=== PATIENT | male | born 1990 | race Hispanic/Latino ===

== ENCOUNTER 2020-08-15 05:21 | Inpatient (IN) | payer MEDICAID, OTHER ==
[2020-08-15] VITALS (23 sets, daily range): BP systolic 105–152; BP diastolic 57–81
[~2020-08-15] VITALS: Ht 180.3 cm; Wt 87.5 kg
[2020-08-15 05:52] LABS: BASOPHILS % (AUTO) 0.2 % (0.0-5.0); EOSINOPHILS % (AUTO) 0.2 % (0.0-8.0); HEMATOCRIT 41.6 % (42-54); LYMPHOCYTES % (AUTO) 12.5 % (21.0-51.0); MEAN CORPUSCULAR HEMOGLOBIN 31.2 pg (27.0-33.0); MEAN CORPUSCULAR HGB CONC 34.4 g/dL (32.0-36.0); MEAN CORPUSCULAR VOLUME 90.8 fL (79-99); MONOCYTES % (AUTO) 8.4 % (3.0-13.0); NEUTROPHILS % (AUTO) 78.4 % (40.0-77.0); PLATELET COUNT (AUTO) 223 K/uL (130-400); RED BLOOD CELL COUNT(AUTO) 4.58 MIL/uL (4.50-6.20); RED CELL DISTRIBUTION WIDTH 11.9 % (11.0-15.5); WHITE BLOOD COUNT (AUTO) 17.7 K/uL (4.8-10.8)
[2020-08-15 06:12] LABS: ALBUMIN 4.1 g/dL (3.5-5.0); CREATININE 1.1 mg/dL (0.5-1.5); POTASSIUM 4.1 mmol/L (3.5-5.1)
[2020-08-15] MEDS ORDERED: MORPHINE 4 MG SYG ONE ×3 (06:40→12:38)
[2020-08-15] MEDS ORDERED: IOHEXOL-350 75 ML VIAL IV ONE (06:54)
[2020-08-15] MEDS ORDERED: ZOSYN 3.375GM+NS 50ML 50 ML IV ONE (07:57)
[2020-08-15] MEDS ORDERED: 0.9%NACL 1000ML 1,000 ML IV ONE (08:09)
[2020-08-15] MEDS ORDERED: KETOROLAC 30MG VIAL (30MG/ML) ONE (08:45)
[2020-08-15] MEDS ORDERED: LIDOCAINE PF 100MG/5ML (2%) SYRINGE 5ML ONE (09:12)
[2020-08-15] MEDS ORDERED: MIDAZOLAM HCL 1 MG/ML 2ML VIAL ONE (09:12)
[2020-08-15] MEDS ORDERED: SUCCINYLCHOLINE 200MG/10ML SYR ONE (09:12)
[2020-08-15] MEDS ORDERED: GLYCOPYRROLATE 1 MG/5 ML SYRINGE ONE (09:13)
[2020-08-15] MEDS ORDERED: ONDANSETRON 4MG INJ ONE (09:13)
[2020-08-15] MEDS ORDERED: ROCURONIUM 10MG/1ML SYR 10 MG/ML ML ONE (09:13)
[2020-08-15] MEDS ORDERED: FENTANYL CITRATE PF 50 MCG/1 ML 2ML VIAL ONE (09:13)
[2020-08-15] MEDS ORDERED: PROPOFOL 10 MG/ML 20ML VIAL IV ONE (09:13)
[2020-08-15] MEDS ORDERED: NEOSTIGMINE 5MG/5ML SYR IV ONE (09:13)
[2020-08-15] MEDS ORDERED: METOCLOPRAMIDE 10 MG/2 ML VIAL ONE (09:16)
[2020-08-15] MEDS ORDERED: BUPIVACAINE/PF 0.5% 30ML VIAL ONE (09:56)
[2020-08-15] MEDS ORDERED: MEPERIDINE-PF 25 MG/ML SYG ONE ×2 (10:20→10:31)
[2020-08-15] MEDS ORDERED: MORPHINE 4 MG SYG IM PRN (12:30)
[2020-08-15] MEDS: KETOROLAC 30MG VIAL (30MG/ML) IV PRN (14:35)
[2020-08-15] MEDS: ZOSYN 3.375GM+NS 50ML 50 ML IV SCH ×2 (14:37→21:55)
[2020-08-15] MEDS: ACETAMINOPHEN WITH CODEINE 1 TAB TAB PO PRN ×2 (14:37→21:49)
[2020-08-15] MEDS ORDERED: LACTATED RINGERS 1000ML 1,000 ML IV ONE (16:38)
[2020-08-15] MEDS: MORPHINE 4 MG SYG IV PRN (16:40)
[2020-08-16] MEDS: MORPHINE 4 MG SYG IV PRN ×3 (02:38→15:13)
[2020-08-16 04:03] VITALS: BP 110/49
[2020-08-16] MEDS: ZOSYN 3.375GM+NS 50ML 50 ML IV SCH ×3 (05:32→21:12)
[2020-08-16 05:35] LABS: BASOPHILS % (AUTO) 0.1 % (0.0-5.0); EOSINOPHILS % (AUTO) 0.1 % (0.0-8.0); HEMATOCRIT 30.3 % (42-54); LYMPHOCYTES % (AUTO) 10.2 % (21.0-51.0); MEAN CORPUSCULAR HEMOGLOBIN 31.1 pg (27.0-33.0); MEAN CORPUSCULAR HGB CONC 33.3 g/dL (32.0-36.0); MEAN CORPUSCULAR VOLUME 93.2 fL (79-99); MONOCYTES % (AUTO) 7.4 % (3.0-13.0); NEUTROPHILS % (AUTO) 81.9 % (40.0-77.0); PLATELET COUNT (AUTO) 185 K/uL (130-400); RED BLOOD CELL COUNT(AUTO) 3.25 MIL/uL (4.50-6.20); RED CELL DISTRIBUTION WIDTH 12.1 % (11.0-15.5); WHITE BLOOD COUNT (AUTO) 15.9 K/uL (4.8-10.8)
[2020-08-16 06:09] LABS: CREATININE 1.3 mg/dL (0.5-1.5); POTASSIUM 3.9 mmol/L (3.5-5.1)
[2020-08-16 08:00] VITALS: BP 121/68
[2020-08-16 12:00] VITALS: BP 115/57
[2020-08-16] MEDS: ACETAMINOPHEN WITH CODEINE 1 TAB TAB PO PRN ×2 (12:15→18:45)
[2020-08-16] MEDS ORDERED: LACTATED RINGERS 1000ML 1,000 ML IV ONE (14:50)
[2020-08-16 16:00] VITALS: BP 113/47
[2020-08-16 19:00] VITALS: BP 121/37
[2020-08-16] MEDS: KETOROLAC 30MG VIAL (30MG/ML) IV PRN (22:27)
[2020-08-17 00:03] VITALS: BP 106/46
[2020-08-17 04:00] VITALS: BP 104/50
[2020-08-17] MEDS: ZOSYN 3.375GM+NS 50ML 50 ML IV SCH ×3 (05:15→22:41)
[2020-08-17] MEDS: ACETAMINOPHEN WITH CODEINE 1 TAB TAB PO PRN ×2 (07:49→16:05)
[2020-08-17 08:00] VITALS: BP 136/71
[2020-08-17 11:52] VITALS: BP 125/69
[2020-08-17 12:26] LABS: HEMATOCRIT 26.3 % (42-54); MEAN CORPUSCULAR HEMOGLOBIN 31.3 pg (27.0-33.0); MEAN CORPUSCULAR HGB CONC 33.5 g/dL (32.0-36.0); MEAN CORPUSCULAR VOLUME 93.6 fL (79-99); PLATELET COUNT (AUTO) 155 K/uL (130-400); RED BLOOD CELL COUNT(AUTO) 2.81 MIL/uL (4.50-6.20); WHITE BLOOD COUNT (AUTO) 13.2 K/uL (4.8-10.8)
[2020-08-17 12:49] LABS: POTASSIUM 3.9 mmol/L (3.5-5.1)
[2020-08-17 12:54] LABS: ALBUMIN 2.5 g/dL (3.5-5.0); BILIRUBIN,TOTAL 0.8 mg/dL (0.2-1.0); TOTAL PROTEIN, SERUM 6.8 g/dL (6.0-8.3)
[2020-08-17 13:14] LABS: EOSINOPHILS % (MANUAL) 1 % (1-6); LYMPHOCYTES % (MANUAL) 14 % (22-44); MONOCYTES % (MANUAL) 4 % (2-9); PLATELET MORPHOLOGY COMMENT ADEQUATE; SEGMENTED NEUTROPHILS % 81 % (40-70)
[2020-08-17 16:00] VITALS: BP 125/69
[2020-08-17 19:00] VITALS: BP 134/75
[2020-08-17] MEDS: MORPHINE 4 MG SYG IV PRN (19:00)
[2020-08-18] VITALS (7 sets, daily range): BP systolic 126–145; BP diastolic 62–84
[2020-08-18] MEDS ORDERED: 0.9%NACL 1000ML 1,000 ML IV ONE (00:32)
[2020-08-18] MEDS: 0.9%NACL 1000ML 1,000 ML IV SCH ×4 (00:38→20:13)
[2020-08-18] MEDS: ACETAMINOPHEN 325 MG TAB PO PRN ×3 (00:38→17:57)
[2020-08-18] MEDS: ONDANSETRON 4MG INJ IVP PRN ×4 (02:36→20:40)
[2020-08-18] MEDS: KETOROLAC 30MG VIAL (30MG/ML) IV PRN ×4 (02:36→22:01)
[2020-08-18 05:18] LABS: BASOPHILS % (AUTO) 0.3 % (0.0-5.0); EOSINOPHILS % (AUTO) 0.4 % (0.0-8.0); LYMPHOCYTES % (AUTO) 5.8 % (21.0-51.0); MEAN CORPUSCULAR HEMOGLOBIN 30.9 pg (27.0-33.0); MEAN CORPUSCULAR HGB CONC 33.1 g/dL (32.0-36.0); MEAN CORPUSCULAR VOLUME 93.3 fL (79-99); MONOCYTES % (AUTO) 6.7 % (3.0-13.0); NEUTROPHILS % (AUTO) 86.3 % (40.0-77.0); PLATELET COUNT (AUTO) 244 K/uL (130-400); RED BLOOD CELL COUNT(AUTO) 3.43 MIL/uL (4.50-6.20); WHITE BLOOD COUNT (AUTO) 16.8 K/uL (4.8-10.8)
[2020-08-18 05:39] LABS: ALBUMIN 2.9 g/dL (3.5-5.0); BILIRUBIN,TOTAL 1.7 mg/dL (0.2-1.0); CREATININE 1.5 mg/dL (0.5-1.5); POTASSIUM 3.9 mmol/L (3.5-5.1)
[2020-08-18] MEDS: ZOSYN 3.375GM+NS 50ML 50 ML IV SCH ×3 (06:07→20:13)
[2020-08-18] MEDS ORDERED: IOHEXOL-350 75 ML VIAL IV ONE (11:06)
[2020-08-18] MEDS: MORPHINE 4 MG SYG IV PRN (20:40)
[2020-08-19] MEDS: ONDANSETRON 4MG INJ IVP PRN ×3 (01:44→16:09)
[2020-08-19 03:50] VITALS: BP 119/60
[2020-08-19] MEDS: 0.9%NACL 1000ML 1,000 ML IV SCH ×3 (04:23→21:22)
[2020-08-19] MEDS: MORPHINE 4 MG SYG IV PRN ×2 (04:23→16:19)
[2020-08-19] MEDS: ZOSYN 3.375GM+NS 50ML 50 ML IV SCH ×3 (04:26→19:49)
[2020-08-19 05:45] LABS: HEMATOCRIT 27.6 % (42-54); MEAN CORPUSCULAR HEMOGLOBIN 30.3 pg (27.0-33.0); MEAN CORPUSCULAR HGB CONC 32.6 g/dL (32.0-36.0); MEAN CORPUSCULAR VOLUME 92.9 fL (79-99); NUCLEATED RED BLOOD CELLS 0.1 % (0.0-0.19); PLATELET COUNT (AUTO) 272 K/uL (130-400); RED BLOOD CELL COUNT(AUTO) 2.97 MIL/uL (4.50-6.20); RED CELL DISTRIBUTION WIDTH 12.5 % (11.0-15.5); WHITE BLOOD COUNT (AUTO) 15.9 K/uL (4.8-10.8)
[2020-08-19 06:02] LABS: ALBUMIN 2.2 g/dL (3.5-5.0); BILIRUBIN,TOTAL 1.7 mg/dL (0.2-1.0); CREATININE 1.3 mg/dL (0.5-1.5); POTASSIUM 4.2 mmol/L (3.5-5.1); TOTAL PROTEIN, SERUM 6.4 g/dL (6.0-8.3)
[2020-08-19 06:12] LABS: BAND NEUTROPHILS % (MANUAL) 47 % (0-2); LYMPHOCYTES % (MANUAL) 2 % (22-44); MAN.DIFF COMMENT-IMPRESSION MANUAL DIFFERENTIAL; METAMYELOCYTES % 4 % (0-0); MONOCYTES % (MANUAL) 8 % (2-9); SEGMENTED NEUTROPHILS % 39 % (40-70)
[2020-08-19 08:00] VITALS: BP 150/71
[2020-08-19] MEDS: KETOROLAC 30MG VIAL (30MG/ML) IV PRN ×2 (10:00→19:52)
[2020-08-19] MEDS: ACETAMINOPHEN 325 MG TAB PO PRN (10:03)
[2020-08-19 12:00] VITALS: BP 138/66
[2020-08-19 16:00] VITALS: BP 140/68
[2020-08-19 19:50] VITALS: BP 136/68
[2020-08-19 21:55] LABS: APPEARANCE,URINE Clear (CLEAR); BILIRUBIN,URINE Small (NEGATIVE); COLOR,URINE Dark Yellow (YELLOW); GLUCOSE, URINE (UA) Negative (NEGATIVE); KETONES,URINE Trace mg/dL (NEGATIVE); LEUKOCYTE ESTERASE ,URINE Trace (NEGATIVE); NITRATE,URINE Negative (NEGATIVE); OCCULT BLOOD,URINE Negative (NEGATIVE); PROTEIN,URINE POS 2+ mg/dL (NEGATIVE)
[2020-08-19 22:02] LABS: BACTERIA,URINE Few /HPF (None Seen); RBC,URINE 0-1 /HPF (0-1)
[2020-08-19 22:03] LABS: SQUAMOUS EPITHELIAL CELL,UR Rare /HPF (0-2)
[2020-08-19 23:54] VITALS: BP 127/73
[2020-08-20] MEDS: MORPHINE 4 MG SYG IV PRN (00:29)
[2020-08-20] MEDS: ONDANSETRON 4MG INJ IVP PRN ×3 (00:29→20:04)
[2020-08-20] MEDS: 0.9%NACL 1000ML 1,000 ML IV SCH ×3 (03:39→23:38)
[2020-08-20 03:48] VITALS: BP 138/62
[2020-08-20] MEDS: ZOSYN 3.375GM+NS 50ML 50 ML IV SCH ×3 (04:06→20:53)
[2020-08-20] MEDS: KETOROLAC 30MG VIAL (30MG/ML) IV PRN ×2 (04:10→10:03)
[2020-08-20 09:23] VITALS: BP 146/67
[2020-08-20 11:55] VITALS: BP 143/71
[2020-08-20] MEDS: FLUCONAZOLE 200 MG/NS 100 ML 100 ML IV SCH (13:22)
[2020-08-20] MEDS: ACETAMINOPHEN WITH CODEINE 1 TAB TAB PO PRN ×3 (13:33→22:46)
[2020-08-20 16:38] VITALS: BP 143/66
[2020-08-20 20:08] VITALS: BP 125/60
[2020-08-20 23:44] VITALS: BP 150/78
[2020-08-21] VITALS (26 sets, daily range): BP systolic 68–151; BP diastolic 37–96
[2020-08-21] MEDS: 0.9%NACL 1000ML 1,000 ML IV SCH (01:00)
[2020-08-21] MEDS: ONDANSETRON 4MG INJ IVP PRN (02:06)
[2020-08-21] MEDS: MORPHINE 4 MG SYG IV PRN (02:07)
[2020-08-21 03:51] LABS: MEAN CORPUSCULAR HEMOGLOBIN 30.6 pg (27.0-33.0); MEAN CORPUSCULAR VOLUME 89.8 fL (79-99); NUCLEATED RED BLOOD CELLS 0.8 % (0.0-0.19); PLATELET COUNT (AUTO) 331 K/uL (130-400); RED BLOOD CELL COUNT(AUTO) 2.16 MIL/uL (4.50-6.20); RED CELL DISTRIBUTION WIDTH 13.3 % (11.0-15.5)
[2020-08-21 03:53] LABS: CREATININE 2.3 mg/dL (0.5-1.5); POTASSIUM 3.7 mmol/L (3.5-5.1)
[2020-08-21 03:54] LABS: WHITE BLOOD COUNT (AUTO) 32.7 K/uL (4.8-10.8)
[2020-08-21 03:55] LABS: HEMATOCRIT 19.4 % (42-54)
[2020-08-21 04:24] LABS: BAND NEUTROPHILS % (MANUAL) 46 % (0-2); LYMPHOCYTES % (MANUAL) 11 % (22-44); MAN.DIFF COMMENT-IMPRESSION MANUAL DIFFERENTIAL; METAMYELOCYTES % 6 % (0-0); MONOCYTES % (MANUAL) 3 % (2-9); MYELOCYTES % 1 % (0-0); PLATELET MORPHOLOGY COMMENT ADEQUATE; REACTIVE LYMPHOCYTES 1 % (0-0); SEGMENTED NEUTROPHILS % 32 % (40-70)
[2020-08-21] MEDS: ZOSYN 3.375GM+NS 50ML 50 ML IV SCH (05:02)
[2020-08-21] MEDS ORDERED: DIATR MEGLU/DIATRIZOATE SODIUM 30 ML BOTTLE ONE (06:53)
[2020-08-21] MEDS: FLUCONAZOLE 200 MG/NS 100 ML 100 ML IV SCH (08:35)
[2020-08-21] MEDS ORDERED: FUROSEMIDE 40MG VIAL IV SCH ×2 (09:30→10:18)
[2020-08-21] MEDS ORDERED: LORAZEPAM 2 MG/ML 1 ML VIAL IVP PRN (09:30)
[2020-08-21] MEDS ORDERED: OCTREOTIDE ACETATE 1,250 MCG in 0.9% NACL 250ML 250 ML IV SCH (09:45)
[2020-08-21] MEDS ORDERED: ACETAMINOPHEN 325 MG TAB PO PRN (09:45)
[2020-08-21] MEDS ORDERED: THIAMINE HCL 100 MG/ML 2ML VIAL IVP SCH (09:45)
[2020-08-21] MEDS ORDERED: PANTOPRAZOLE 40 MG/VIAL IVP SCH (09:45)
[2020-08-21] MEDS ORDERED: FUROSEMIDE 40MG VIAL ONE (09:46)
[2020-08-21 09:48] LABS: INR 0.97 (0.85-1.15); PROTHROMBIN TIME 10.5 SEC (9.6-11.6)
[2020-08-21] MEDS ORDERED: SODIUM BICARB 50MEQ 50ML VIAL 100 ML ONE ×3 (09:51→16:38)
[2020-08-21] MEDS ORDERED: LORAZEPAM 2 MG/ML 1 ML VIAL ONE ×3 (09:58→10:00)
[2020-08-21] MEDS ORDERED: IPRATROPIUM 0.5 MG/2.5 ML INH IH PRN (10:00)
[2020-08-21] MEDS ORDERED: NOREPINEPHRIN 4MG/NS 250ML 250 ML IV ONE (10:01)
[2020-08-21] MEDS ORDERED: PROPOFOL 1000 MG/100 ML 100 ML IV ONE ×2 (10:07→18:12)
[2020-08-21] MEDS ORDERED: CHLORDIAZEPOXIDE HCL 25 MG CAP PO SCH (10:30)
[2020-08-21] MEDS ORDERED: MIDAZOLAM 100MG-0.9% NS 100ML 100 ML IV ONE (10:38)
[2020-08-21 10:49] LABS: ABG BASE EXCESS -11.2 mmol/L (-2.0-3.0); ABG OXYGEN SATURATION 97.9 % (95.0-99.0); ABG PCO2 42 mmHg (35-48)
[2020-08-21 10:52] LABS: BASOPHILS % (AUTO) 0.5 % (0.0-5.0); EOSINOPHILS % (AUTO) 0.2 % (0.0-8.0); HEMATOCRIT 22.4 % (42-54); LYMPHOCYTES % (AUTO) 6.6 % (21.0-51.0); MEAN CORPUSCULAR HEMOGLOBIN 31.3 pg (27.0-33.0); MEAN CORPUSCULAR HGB CONC 34.4 g/dL (32.0-36.0); MEAN CORPUSCULAR VOLUME 91.1 fL (79-99); MONOCYTES % (AUTO) 7.6 % (3.0-13.0); NEUTROPHILS % (AUTO) 77.8 % (40.0-77.0); NUCLEATED RED BLOOD CELLS 2.1 % (0.0-0.19); PLATELET COUNT (AUTO) 284 K/uL (130-400); RED BLOOD CELL COUNT(AUTO) 2.46 MIL/uL (4.50-6.20); RED CELL DISTRIBUTION WIDTH 13.7 % (11.0-15.5)
[2020-08-21 11:00] LABS: WHITE BLOOD COUNT (AUTO) 33.2 K/uL (4.8-10.8)
[2020-08-21 11:06] LABS: ALBUMIN 1.6 g/dL (3.5-5.0); BILIRUBIN,TOTAL 2.7 mg/dL (0.2-1.0); CREATININE 2.7 mg/dL (0.5-1.5); POTASSIUM 4.6 mmol/L (3.5-5.1); TOTAL PROTEIN, SERUM 5.6 g/dL (6.0-8.3)
[2020-08-21] MEDS ORDERED: SODIUM BICARB 50MEQ 50ML VIAL IV SCH ×2 (11:15→16:30)
[2020-08-21 11:36] LABS: BAND NEUTROPHILS % (MANUAL) 17 % (0-2); LYMPHOCYTES % (MANUAL) 8 % (22-44); MAN.DIFF COMMENT-IMPRESSION MANUAL DIFFERENTIAL; MONOCYTES % (MANUAL) 3 % (2-9); PLATELET MORPHOLOGY COMMENT ADEQUATE; SEGMENTED NEUTROPHILS % 72 % (40-70)
[2020-08-21] MEDS ORDERED: VANCOMYCIN 1G/250ML KIT 250 ML IV SCH (11:45)
[2020-08-21] MEDS ORDERED: VANCOMYCIN PROTOCOL PER PHARMACY IV SCH (11:45)
[2020-08-21] MEDS: METOPROLOL TARTRATE 1 MG/ML 5ML VIAL IV SCH ×2 (11:53→15:01)
[2020-08-21] MEDS ORDERED: LEVETIRACETAM 1,000 MG in 0.9%NACL 100ML 100 ML IV SCH (11:54)
[2020-08-21] MEDS ORDERED: COMPOUND IV REFRIGERATED 1 EACH IVSOLN MISC PRN ×2 (12:00→13:45)
[2020-08-21] MEDS ORDERED: PHARMACY COMMUNICATION MISC SCH ×3 (12:00→16:30)
[2020-08-21] MEDS ORDERED: COMPOUND IV MISC 1 EACH IVSOLN MISC PRN ×2 (12:00→13:30)
[2020-08-21] MEDS: M.V.I. IV [ADULT] 10 ML, FOLIC ACID 1 MG, THIAMINE HCL 100 MG in 0.9%NACL 1000ML 1,000 ML IV SCH (12:08)
[2020-08-21] MEDS: PANTOPRAZOLE 40MG INJ 80 MG in 0.9%NACL 100ML 100 ML IVP SCH (12:10)
[2020-08-21] MEDS: ACETAMINOPHEN 325 MG TAB PO PRN (12:59)
[2020-08-21] MEDS ORDERED: VALPROIC ACID IV SCH (13:15)
[2020-08-21] MEDS ORDERED: [UNRECOGNIZED DRUG - OTHER] IV SCH (13:15)
[2020-08-21] MEDS ORDERED: FOSPHENYTOIN SODIUM 1,500 MG in 0.9%NACL 100ML 100 ML IJ SCH (13:45)
[2020-08-21] MEDS ORDERED: VANCOMYCIN 1G 1.5 GM in 0.9% NACL 250ML 250 ML IV SCH (13:45)
[2020-08-21] MEDS: NOREPINEPHRIN 4MG/NS 250ML 250 ML IV SCH ×2 (13:48→16:24)
[2020-08-21] MEDS ORDERED: RENAL DOSE IV PRN (14:45)
[2020-08-21 15:03] LABS: ABG BASE EXCESS -7.1 mmol/L (-2.0-3.0); ABG HCO3 16.7 mmol/L (21.0-28.0); ABG OXYGEN SATURATION 98.4 % (95.0-99.0); ABG PCO2 28 mmHg (35-48)
[2020-08-21] MEDS ORDERED: CALCIUM GLUC 1GM/10ML VIAL IV ONE (16:15)
[2020-08-21] MEDS ORDERED: CALCIUM GLUC 1GM 1 GM in 0.9%NACL 100ML 100 ML IV SCH ×2 (16:30→16:56)
[2020-08-21 16:47] LABS: AMPHET/METH SCREEN,URINE NEGATIVE (NEGATIVE); BARBITURATE SCREEN, URINE NEGATIVE (NEGATIVE); BENZODIAZEPINES SCREEN,URINE POSITIVE (NEGATIVE); CANNABINOID SCREEN,URINE POSITIVE (NEGATIVE); COCAINE SCREEN,URINE NEGATIVE (NEGATIVE); OPIATE SCREEN,URINE POSITIVE (NEGATIVE); PHENCYCLIDINE SCREEN,URINE NEGATIVE (NEGATIVE)
[2020-08-21] MEDS: FUROSEMIDE 20MG VIAL IV SCH (16:47)
[2020-08-21] MEDS: SODIUM BICARB 50MEQ 50ML VIAL 150 MEQ in DEXTROSE 5%-WATER 1,000 ML IV SCH (17:25)
[2020-08-21 18:26] LABS: BASOPHILS % (AUTO) 0.5 % (0.0-5.0); EOSINOPHILS % (AUTO) 0.1 % (0.0-8.0); HEMATOCRIT 22.9 % (42-54); LYMPHOCYTES % (AUTO) 7.4 % (21.0-51.0); MEAN CORPUSCULAR HEMOGLOBIN 31.8 pg (27.0-33.0); MEAN CORPUSCULAR HGB CONC 35.8 g/dL (32.0-36.0); MEAN CORPUSCULAR VOLUME 88.8 fL (79-99); MONOCYTES % (AUTO) 7.5 % (3.0-13.0); NEUTROPHILS % (AUTO) 76.1 % (40.0-77.0); NUCLEATED RED BLOOD CELLS 2.2 % (0.0-0.19); PLATELET COUNT (AUTO) 257 K/uL (130-400); RED BLOOD CELL COUNT(AUTO) 2.58 MIL/uL (4.50-6.20); RED CELL DISTRIBUTION WIDTH 14.4 % (11.0-15.5); WHITE BLOOD COUNT (AUTO) 28.2 K/uL (4.8-10.8)
[2020-08-21 18:29] LABS: INR 0.96 (0.85-1.15); PROTHROMBIN TIME 10.4 SEC (9.6-11.6)
[2020-08-21] MEDS ORDERED: PROPOFOL 1000 MG/100 ML 100 ML IV SCH (18:30)
[2020-08-21 18:32] LABS: CREATININE 2.6 mg/dL (0.5-1.5)
[2020-08-21 19:37] LABS: ABG BASE EXCESS -0.7 mmol/L (-2.0-3.0); ABG HCO3 22.3 mmol/L (21.0-28.0); ABG OXYGEN SATURATION 98.1 % (95.0-99.0); ABG PCO2 32 mmHg (35-48)
[2020-08-21] MEDS ORDERED: NOREPINEPHRINE BITARTRATE 32 MG in 0.9% NACL 250ML 250 ML IV SCH (19:45)
[2020-08-21] MEDS ORDERED: 0.9% NACL 500ML IV.SOLN 500 ML IV ONE (20:08)
[2020-08-21] MEDS ORDERED: 0.9%NACL 1000ML 1,000 ML IV ONE (20:09)
[2020-08-21] MEDS ORDERED: CHLORDIAZEPOXIDE HCL 25 MG CAP PO ONE (21:00)
[2020-08-21] MEDS: FOSPHENYTOIN SODIUM IJ SCH (21:08)
[2020-08-21] MEDS: LEVETIRACETAM 500 MG in 0.9%NACL 100ML 100 ML IV SCH (21:08)
[2020-08-21] MEDS: [UNRECOGNIZED DRUG - OTHER] IJ SCH (21:08)
[2020-08-21] MEDS ORDERED: ROCURONIUM 10MG/1ML SYR 10 MG/ML ML ONE ×2 (21:13→23:04)
[2020-08-21 22:21] LABS: ABG BASE EXCESS -2.2 mmol/L (-2.0-3.0); ABG HCO3 22.2 mmol/L (21.0-28.0); ABG OXYGEN SATURATION 88.6 % (95.0-99.0); ABG PCO2 36 mmHg (35-48)
[2020-08-21] MEDS ORDERED: FENTANYL CITRATE PF 50 MCG/1 ML 2ML VIAL ONE (22:21)
[2020-08-21] MEDS ORDERED: ALBUTEROL INHALER 90MCG/INH IH ONE (22:40)
[2020-08-22] VITALS (20 sets, daily range): BP systolic 116–140; BP diastolic 46–89
[2020-08-22 01:01] LABS: HEMATOCRIT 24.8 % (42-54)
[2020-08-22 04:00] LABS: ABG BASE EXCESS -2.4 mmol/L (-2.0-3.0); ABG HCO3 21.1 mmol/L (21.0-28.0); ABG OXYGEN SATURATION 98.9 % (95.0-99.0); ABG PCO2 33 mmHg (35-48)
[2020-08-22 04:21] LABS: HEMATOCRIT 20.7 % (42-54)
[2020-08-22 04:30] LABS: ALBUMIN 1.2 g/dL (3.5-5.0); BILIRUBIN,TOTAL 3.9 mg/dL (0.2-1.0); CREATININE 2.8 mg/dL (0.5-1.5); POTASSIUM 4.1 mmol/L (3.5-5.1); TOTAL PROTEIN, SERUM 5.1 g/dL (6.0-8.3)
[2020-08-22] MEDS: FUROSEMIDE 20MG VIAL IV SCH (05:12)
[2020-08-22] MEDS: FLUCONAZOLE 200 MG/NS 100 ML 100 ML IV SCH (08:15)
[2020-08-22] MEDS: [UNRECOGNIZED DRUG - OTHER] IJ SCH ×2 (08:15→20:24)
[2020-08-22] MEDS: FOSPHENYTOIN SODIUM IJ SCH ×2 (08:15→20:24)
[2020-08-22] MEDS: LEVETIRACETAM 500 MG in 0.9%NACL 100ML 100 ML IV SCH ×2 (08:16→20:21)
[2020-08-22] MEDS: VANCOMYCIN 750MG + NS 250 ML IV SCH ×4 (08:16→20:49)
[2020-08-22] MEDS: THIAMINE HCL 100 MG/ML 2ML VIAL IVP SCH (08:18)
[2020-08-22] MEDS ORDERED: IPRATROPIUM 0.5 MG/2.5 ML INH IH SCH (09:45)
[2020-08-22] MEDS ORDERED: MIDAZOLAM 100MG-0.9% NS 100ML 100 ML IV ONE ×2 (10:18→16:51)
[2020-08-22] MEDS ORDERED: EPINEPHRINE PF 1MG AMP ONE (10:27)
[2020-08-22] MEDS: MEROPENEM 1 GM VIAL IVP SCH ×2 (10:57→22:33)
[2020-08-22] MEDS: SODIUM BICARB 50MEQ 50ML VIAL 150 MEQ in DEXTROSE 5%-WATER 1,000 ML IV SCH (10:57)
[2020-08-22] MEDS: IPRATROPIUM 0.5 MG/2.5 ML INH IH SCH ×2 (11:16→18:22)
[2020-08-22 12:06] LABS: HEMATOCRIT 21.3 % (42-54)
[2020-08-22] MEDS: M.V.I. IV [ADULT] 10 ML, FOLIC ACID 1 MG, THIAMINE HCL 100 MG in 0.9%NACL 1000ML 1,000 ML IV SCH (14:29)
[2020-08-22] MEDS: METRONIDAZOLE 500MG/100ML BAG 100 ML IVPB SCH ×2 (14:29→22:37)
[2020-08-22] MEDS: PANTOPRAZOLE 40MG INJ 80 MG in 0.9%NACL 100ML 100 ML IVP SCH (18:07)
[2020-08-22 19:17] LABS: ABG BASE EXCESS 0.6 mmol/L (-2.0-3.0); ABG OXYGEN SATURATION 96.6 % (95.0-99.0); ABG PCO2 31 mmHg (35-48)
[2020-08-23] VITALS (24 sets, daily range): BP systolic 105–140; BP diastolic 43–66
[2020-08-23] MEDS: IPRATROPIUM 0.5 MG/2.5 ML INH IH SCH ×4 (00:12→18:04)
[2020-08-23] MEDS ORDERED: MIDAZOLAM 100MG-0.9% NS 100ML 100 ML IV ONE (05:13)
[2020-08-23] MEDS: METRONIDAZOLE 500MG/100ML BAG 100 ML IVPB SCH ×3 (06:05→22:11)
[2020-08-23] MEDS: PANTOPRAZOLE 40MG INJ 80 MG in 0.9%NACL 100ML 100 ML IVP SCH ×2 (06:36→17:22)
[2020-08-23 06:43] LABS: HEMATOCRIT 22.8 % (42-54); MEAN CORPUSCULAR HEMOGLOBIN 31.1 pg (27.0-33.0); MEAN CORPUSCULAR HGB CONC 34.2 g/dL (32.0-36.0); MEAN CORPUSCULAR VOLUME 90.8 fL (79-99); RED BLOOD CELL COUNT(AUTO) 2.51 MIL/uL (4.50-6.20); RED CELL DISTRIBUTION WIDTH 14.8 % (11.0-15.5); WHITE BLOOD COUNT (AUTO) 13.5 K/uL (4.8-10.8)
[2020-08-23 06:59] LABS: CREATININE 2.7 mg/dL (0.5-1.5); POTASSIUM 3.5 mmol/L (3.5-5.1)
[2020-08-23 07:33] LABS: ABG BASE EXCESS 0.9 mmol/L (-2.0-3.0); ABG HCO3 24.4 mmol/L (21.0-28.0); ABG OXYGEN SATURATION 98.4 % (95.0-99.0); ABG PCO2 36 mmHg (35-48)
[2020-08-23] MEDS: [UNRECOGNIZED DRUG - OTHER] IJ SCH ×2 (08:18→20:53)
[2020-08-23] MEDS: FOSPHENYTOIN SODIUM IJ SCH ×2 (08:18→20:53)
[2020-08-23] MEDS: LEVETIRACETAM 500 MG in 0.9%NACL 100ML 100 ML IV SCH ×2 (08:18→08:32)
[2020-08-23] MEDS: THIAMINE HCL 100 MG/ML 2ML VIAL IVP SCH (08:19)
[2020-08-23] MEDS: FLUCONAZOLE 200 MG/NS 100 ML 100 ML IV SCH (08:31)
[2020-08-23] MEDS: MEROPENEM 1 GM VIAL IVP SCH ×2 (08:32→20:54)
[2020-08-23] MEDS: SODIUM BICARB 50MEQ 50ML VIAL 150 MEQ in DEXTROSE 5%-WATER 1,000 ML IV SCH (08:47)
[2020-08-23] MEDS: M.V.I. IV [ADULT] 10 ML, FOLIC ACID 1 MG, THIAMINE HCL 100 MG in 0.9%NACL 1000ML 1,000 ML IV SCH (08:47)
[2020-08-23] MEDS: VANCOMYCIN 750MG + NS 250 ML IV SCH ×2 (09:09)
[2020-08-23] MEDS: VANCOMYCIN 1G/250ML KIT 250 ML IV SCH ×2 (10:17→21:23)
[2020-08-23] MEDS: INSULIN HUMULIN R 100 UNIT/ML 3ML SQ SCH ×2 (11:17→17:33)
[2020-08-23] MEDS ORDERED: MORPHINE 2 MG SYG IVP PRN (12:45)
[2020-08-23 16:24] LABS: ABG BASE EXCESS 2.5 mmol/L (-2.0-3.0); ABG OXYGEN SATURATION 97.1 % (95.0-99.0); ABG PCO2 36 mmHg (35-48)
[2020-08-23] MEDS: ACETAMINOPHEN 650 MG SUPPOSITORY RC PRN (17:29)
[2020-08-23] MEDS ORDERED: RENAL DOSE IV PRN ×2 (19:00→19:30)
[2020-08-23] MEDS: MIDAZOLAM 100MG-0.9% NS 100ML 50 ML IV PRN (22:54)
[2020-08-23] MEDS: DEXMEDETOMIDINE HCL 400 MCG in 0.9%NACL 100ML 100 ML IV SCH (23:40)
[2020-08-24] VITALS (30 sets, daily range): BP systolic 98–154; BP diastolic 37–74
[2020-08-24] MEDS: IPRATROPIUM 0.5 MG/2.5 ML INH IH SCH ×4 (00:40→18:40)
[2020-08-24 03:45] LABS: BASOPHILS % (AUTO) 0.2 % (0.0-5.0); EOSINOPHILS % (AUTO) 0.2 % (0.0-8.0); HEMATOCRIT 23.9 % (42-54); LYMPHOCYTES % (AUTO) 8.2 % (21.0-51.0); MEAN CORPUSCULAR HEMOGLOBIN 31.1 pg (27.0-33.0); MEAN CORPUSCULAR HGB CONC 33.5 g/dL (32.0-36.0); MONOCYTES % (AUTO) 3.3 % (3.0-13.0); NEUTROPHILS % (AUTO) 82.2 % (40.0-77.0); PLATELET COUNT (AUTO) 151 K/uL (130-400); RED BLOOD CELL COUNT(AUTO) 2.57 MIL/uL (4.50-6.20); RED CELL DISTRIBUTION WIDTH 15.4 % (11.0-15.5); WHITE BLOOD COUNT (AUTO) 10.1 K/uL (4.8-10.8)
[2020-08-24 04:05] LABS: ALBUMIN 1.3 g/dL (3.5-5.0); BILIRUBIN,DIRECT 3.5 mg/dL (0.0-0.3); BILIRUBIN,TOTAL 3.8 mg/dL (0.2-1.0); CREATININE 2.3 mg/dL (0.5-1.5); MAGNESIUM 2.7 mg/dL (1.80-2.40); PHOSPHORUS 2.9 mg/dL (2.5-4.9); POTASSIUM 3.8 mmol/L (3.5-5.1); TOTAL PROTEIN, SERUM 5.6 g/dL (6.0-8.3)
[2020-08-24 04:39] LABS: % IRON SATURATION 10.7 % (30-44)
[2020-08-24] MEDS: PANTOPRAZOLE 40MG INJ 80 MG in 0.9%NACL 100ML 100 ML IVP SCH (05:34)
[2020-08-24] MEDS: METRONIDAZOLE 500MG/100ML BAG 100 ML IVPB SCH ×2 (05:35→14:36)
[2020-08-24] MEDS: INSULIN HUMULIN R 100 UNIT/ML 3ML SQ SCH ×4 (06:11→17:35)
[2020-08-24 06:53] LABS: ABG BASE EXCESS 1.2 mmol/L (-2.0-3.0); ABG OXYGEN SATURATION 97.1 % (95.0-99.0); ABG PCO2 33 mmHg (35-48)
[2020-08-24] MEDS: DEXMEDETOMIDINE HCL 400 MCG in 0.9%NACL 100ML 100 ML IV SCH ×2 (07:00→22:30)
[2020-08-24] MEDS: LEVETIRACETAM 500 MG in 0.9%NACL 100ML 100 ML IV SCH (08:02)
[2020-08-24] MEDS: [UNRECOGNIZED DRUG - OTHER] IJ SCH ×2 (08:02→23:13)
[2020-08-24] MEDS: FLUCONAZOLE 200 MG/NS 100 ML 100 ML IV SCH (08:02)
[2020-08-24] MEDS: FOSPHENYTOIN SODIUM IJ SCH ×2 (08:02→23:13)
[2020-08-24] MEDS: VANCOMYCIN 1G/250ML KIT 250 ML IV SCH (08:03)
[2020-08-24] MEDS: MEROPENEM 1 GM VIAL IVP SCH (08:03)
[2020-08-24] MEDS: THIAMINE HCL 100 MG/ML 2ML VIAL IVP SCH (08:04)
[2020-08-24] MEDS: M.V.I. IV [ADULT] 10 ML, FOLIC ACID 1 MG, THIAMINE HCL 100 MG in 0.9%NACL 1000ML 1,000 ML IV SCH (09:12)
[2020-08-24] MEDS: MORPHINE 4 MG SYG IV PRN (09:27)
[2020-08-24] MEDS ORDERED: FUROSEMIDE 40MG VIAL IV SCH (09:45)
[2020-08-24] MEDS ORDERED: M.V.I. IV [ADULT] 10 ML, MULTITRACE-4 ADULT 10ML VIAL 3 ML in CLINIMIX-E4.25%AA/D5+LYT2... IV SCH (12:53)
[2020-08-24] MEDS ORDERED: M.V.I. IV [ADULT] 10 ML in CLINIMIX-E4.25%AA/D5+LYT2000ML 2,000 ML IV SCH (13:15)
[2020-08-24] MEDS: FAT EMULSIONS 20% 250ML 250 ML IV SCH (15:54)
[2020-08-24] MEDS: ACETAMINOPHEN 650 MG SUPPOSITORY RC PRN (16:09)
[2020-08-24] MEDS: MIDAZOLAM 100MG-0.9% NS 100ML 50 ML IV PRN (18:44)
[2020-08-25] VITALS (24 sets, daily range): BP systolic 82–132; BP diastolic 37–63
[2020-08-25] MEDS: LEVETIRACETAM 500 MG in 0.9%NACL 100ML 100 ML IV SCH ×2 (00:03→08:10)
[2020-08-25] MEDS: PANTOPRAZOLE 40 MG/VIAL IVP SCH ×3 (00:04→20:50)
[2020-08-25] MEDS: MEROPENEM 1 GM VIAL IVP SCH ×3 (00:04→20:50)
[2020-08-25] MEDS: VANCOMYCIN 1G/250ML KIT 250 ML IV SCH ×2 (00:17→10:39)
[2020-08-25] MEDS: METRONIDAZOLE 500MG/100ML BAG 100 ML IVPB SCH ×4 (00:40→22:10)
[2020-08-25] MEDS: IPRATROPIUM 0.5 MG/2.5 ML INH IH SCH ×5 (00:43→23:35)
[2020-08-25] MEDS: INSULIN HUMULIN R 100 UNIT/ML 3ML SQ SCH ×4 (01:01→18:05)
[2020-08-25] MEDS: DEXMEDETOMIDINE HCL 400 MCG in 0.9%NACL 100ML 100 ML IV SCH (03:30)
[2020-08-25 04:53] LABS: BASOPHILS % (AUTO) 0.9 % (0.0-5.0); EOSINOPHILS % (AUTO) 0.3 % (0.0-8.0); HEMATOCRIT 24.4 % (42-54); LYMPHOCYTES % (AUTO) 7.6 % (21.0-51.0); MEAN CORPUSCULAR HGB CONC 32.4 g/dL (32.0-36.0); MEAN CORPUSCULAR VOLUME 95.7 fL (79-99); MONOCYTES % (AUTO) 2.5 % (3.0-13.0); NEUTROPHILS % (AUTO) 84.7 % (40.0-77.0); NUCLEATED RED BLOOD CELLS 2.4 % (0.0-0.19); PLATELET COUNT (AUTO) 154 K/uL (130-400); RED BLOOD CELL COUNT(AUTO) 2.55 MIL/uL (4.50-6.20); RED CELL DISTRIBUTION WIDTH 15.9 % (11.0-15.5); WHITE BLOOD COUNT (AUTO) 11.6 K/uL (4.8-10.8)
[2020-08-25 05:14] LABS: MAGNESIUM 2.9 mg/dL (1.80-2.40); PHOSPHORUS 3.5 mg/dL (2.5-4.9); POTASSIUM 4.4 mmol/L (3.5-5.1)
[2020-08-25] MEDS: MIDAZOLAM 100MG-0.9% NS 100ML 50 ML IV PRN ×2 (06:36→23:56)
[2020-08-25] MEDS ORDERED: NACL 0.9% IV SCH (07:22)
[2020-08-25] MEDS ORDERED: DEXMEDETOMIDINE HCL IV SCH ×3 (07:22→13:45)
[2020-08-25] MEDS: FLUCONAZOLE 200 MG/NS 100 ML 100 ML IV SCH (08:09)
[2020-08-25] MEDS: [UNRECOGNIZED DRUG - OTHER] IJ SCH (08:10)
[2020-08-25] MEDS: FOSPHENYTOIN SODIUM IJ SCH ×2 (08:10→21:39)
[2020-08-25] MEDS: FAT EMULSIONS 20% 250ML 250 ML IV SCH (10:46)
[2020-08-25 11:22] LABS: MYOGLOBIN 9214 ng/mL (10-92); TROPONIN I < 0.04 ng/mL (0.00-0.06)
[2020-08-25 12:18] LABS: CREATINE KINASE, TOTAL 10945 U/L (21-232)
[2020-08-25] MEDS ORDERED: CALCIUM GLUC IV SCH (12:45)
[2020-08-25] MEDS ORDERED: DEXTROSE 5% IV SCH ×3 (12:45→21:15)
[2020-08-25] MEDS ORDERED: WATER IV SCH ×3 (12:45→21:15)
[2020-08-25] MEDS ORDERED: NOREPINEPHRINE BITARTRATE 32 MG in DEXTROSE 5%-WATER 250 ML IV SCH (12:45)
[2020-08-25] MEDS ORDERED: LACTATED RINGERS IV NR (13:45)
[2020-08-25] MEDS ORDERED: DEXMEDETOMIDINE HCL IV NR (13:45)
[2020-08-25] MEDS ORDERED: LACTATED RINGERS IV SCH (13:45)
[2020-08-25] MEDS ORDERED: PHARMACY COMMUNICATION MISC SCH ×2 (14:00→14:45)
[2020-08-25] MEDS ORDERED: [UNRECOGNIZED DRUG - NUTRITION] IV SCH (14:00)
[2020-08-25] MEDS: [UNRECOGNIZED DRUG - NUTRITION] IV SCH (14:07)
[2020-08-25] MEDS: LACTATED RINGERS 1000ML IV SCH (14:16)
[2020-08-25] MEDS: 1/2 NS 1000ML 1,000 ML IV SCH (14:16)
[2020-08-25] MEDS ORDERED: MICAFUNGIN 100MG+NS 100ML 100 ML IV SCH (15:00)
[2020-08-25] MEDS: WATER IV NR (15:36)
[2020-08-25] MEDS: DEXTROSE 5% IV NR (15:36)
[2020-08-25] MEDS: SODIUM BICARB IV NR (15:36)
[2020-08-25] MEDS: LEVETIRACETAM IV SCH (20:45)
[2020-08-25] MEDS: DEXTROSE 5% IV SCH (20:45)
[2020-08-25] MEDS: WATER IV SCH (20:45)
[2020-08-25] MEDS ORDERED: MICAFUNGIN SODIUM IV SCH (21:15)
[2020-08-25] MEDS: WATER IJ SCH (21:39)
[2020-08-25] MEDS: DEXTROSE 5% IJ SCH (21:39)
[2020-08-26] VITALS (21 sets, daily range): BP systolic 92–135; BP diastolic 51–65
[2020-08-26] MEDS: INSULIN HUMULIN R 100 UNIT/ML 3ML SQ SCH ×5 (00:24→23:57)
[2020-08-26] MEDS: 1/2 NS 1000ML 1,000 ML IV SCH (04:53)
[2020-08-26] MEDS: METRONIDAZOLE 500MG/100ML BAG 100 ML IVPB SCH ×3 (05:00→23:47)
[2020-08-26] MEDS: IPRATROPIUM 0.5 MG/2.5 ML INH IH SCH ×3 (06:16→19:00)
[2020-08-26] MEDS ORDERED: DEXMEDETOMIDINE HCL IV NR (07:00)
[2020-08-26] MEDS ORDERED: LACTATED RINGERS IV NR (07:00)
[2020-08-26] MEDS ORDERED: 0.9% NACL 500ML IV.SOLN 500 ML IV ONE (07:43)
[2020-08-26] MEDS: DEXTROSE 5% IV SCH ×2 (08:19→15:50)
[2020-08-26] MEDS: LEVETIRACETAM IV SCH (08:19)
[2020-08-26] MEDS: WATER IV SCH ×2 (08:19→15:50)
[2020-08-26 08:21] LABS: ALBUMIN 1.2 g/dL (3.5-5.0); BILIRUBIN,TOTAL 2.3 mg/dL (0.2-1.0); CREATININE 1.3 mg/dL (0.5-1.5); POTASSIUM 4.4 mmol/L (3.5-5.1); TOTAL PROTEIN, SERUM 5.4 g/dL (6.0-8.3)
[2020-08-26] MEDS: PANTOPRAZOLE 40 MG/VIAL IVP SCH ×2 (08:27→19:51)
[2020-08-26] MEDS ORDERED: VANCOMYCIN IV SCH (09:00)
[2020-08-26] MEDS ORDERED: DEXTROSE 5% IV SCH (09:00)
[2020-08-26] MEDS ORDERED: INSULIN GLARGINE 100 UNITS/ML 10 ML VIAL SQ ONE (09:00)
[2020-08-26] MEDS ORDERED: WATER IV SCH (09:00)
[2020-08-26] MEDS: FOSPHENYTOIN SODIUM IJ SCH ×2 (09:27→21:00)
[2020-08-26] MEDS: DEXTROSE 5% IJ SCH ×2 (09:27→21:00)
[2020-08-26] MEDS: MEROPENEM 1 GM VIAL IVP SCH ×2 (09:27→21:30)
[2020-08-26] MEDS: WATER IJ SCH ×2 (09:27→21:00)
[2020-08-26] MEDS: FAT EMULSIONS 20% 250ML 250 ML IV SCH (13:36)
[2020-08-26] MEDS: LACTATED RINGERS 1000ML IV SCH (14:00)
[2020-08-26] MEDS: MICAFUNGIN SODIUM IV SCH (15:50)
[2020-08-26] MEDS: SODIUM BICARB IV NR (17:04)
[2020-08-26] MEDS: DEXTROSE 5% IV NR (17:04)
[2020-08-26] MEDS: WATER IV NR (17:04)
[2020-08-26] MEDS: [UNRECOGNIZED DRUG - NUTRITION] IV SCH (17:05)
[2020-08-26] MEDS: MORPHINE 4 MG SYG IV PRN ×2 (19:51→23:48)
[2020-08-27] VITALS (10 sets, daily range): BP systolic 102–152; BP diastolic 47–103
[2020-08-27 04:25] LABS: BASOPHILS % (AUTO) 0.6 % (0.0-5.0); EOSINOPHILS % (AUTO) 0.7 % (0.0-8.0); HEMATOCRIT 24.4 % (42-54); LYMPHOCYTES % (AUTO) 7.4 % (21.0-51.0); MEAN CORPUSCULAR HEMOGLOBIN 31.1 pg (27.0-33.0); MEAN CORPUSCULAR VOLUME 97.2 fL (79-99); MONOCYTES % (AUTO) 3.7 % (3.0-13.0); NEUTROPHILS % (AUTO) 86.1 % (40.0-77.0); PLATELET COUNT (AUTO) 201 K/uL (130-400); RED BLOOD CELL COUNT(AUTO) 2.51 MIL/uL (4.50-6.20); RED CELL DISTRIBUTION WIDTH 15.9 % (11.0-15.5); WHITE BLOOD COUNT (AUTO) 8.7 K/uL (4.8-10.8)
[2020-08-27 04:38] LABS: B-TYPE NATRIURETIC PEPTIDE 152 pg/mL (0-100)
[2020-08-27 04:57] LABS: ABG BASE EXCESS 2.5 mmol/L (-2.0-3.0); ABG HCO3 25.7 mmol/L (21.0-28.0); ABG OXYGEN SATURATION 96.4 % (95.0-99.0); ABG PCO2 35 mmHg (35-48)
[2020-08-27 05:17] LABS: ALBUMIN 1.2 g/dL (3.5-5.0); BILIRUBIN,DIRECT 1.5 mg/dL (0.0-0.3); BILIRUBIN,TOTAL 1.9 mg/dL (0.2-1.0); CREATININE 1.5 mg/dL (0.5-1.5); MAGNESIUM 3.7 mg/dL (1.80-2.40); POTASSIUM 4.9 mmol/L (3.5-5.1); TOTAL PROTEIN, SERUM 5.3 g/dL (6.0-8.3)
[2020-08-27] MEDS: METRONIDAZOLE 500MG/100ML BAG 100 ML IVPB SCH ×3 (05:17→21:45)
[2020-08-27] MEDS: INSULIN HUMULIN R 100 UNIT/ML 3ML SQ SCH ×3 (05:32→17:59)
[2020-08-27] MEDS: PANTOPRAZOLE 40 MG/VIAL IVP SCH ×2 (09:32→21:33)
[2020-08-27] MEDS: MEROPENEM 1 GM VIAL IVP SCH ×2 (09:32→22:18)
[2020-08-27] MEDS: LEVETIRACETAM IV SCH ×3 (09:34→22:21)
[2020-08-27] MEDS: DEXTROSE 5% IV SCH ×6 (09:34→22:32)
[2020-08-27] MEDS: WATER IV SCH ×6 (09:34→22:32)
[2020-08-27] MEDS: FOSPHENYTOIN SODIUM IJ SCH ×2 (09:36→21:32)
[2020-08-27] MEDS: DEXTROSE 5% IJ SCH ×2 (09:36→21:32)
[2020-08-27] MEDS: WATER IJ SCH ×2 (09:36→21:32)
[2020-08-27] MEDS ORDERED: VANCOMYCIN 1G 1.25 GM in 0.9% NACL 250ML 250 ML IV SCH (10:00)
[2020-08-27] MEDS: VANCOMYCIN IV SCH ×2 (10:15→22:32)
[2020-08-27 10:56] LABS: ABG BASE EXCESS 1.2 mmol/L (-2.0-3.0); ABG HCO3 24.1 mmol/L (21.0-28.0); ABG OXYGEN SATURATION 96.6 % (95.0-99.0); ABG PCO2 33 mmHg (35-48)
[2020-08-27] MEDS: LACTATED RINGERS 1000ML IV SCH (14:00)
[2020-08-27] MEDS: WATER IV NR (15:00)
[2020-08-27] MEDS: DEXTROSE 5% IV NR (15:00)
[2020-08-27] MEDS: SODIUM BICARB IV NR (15:00)
[2020-08-27] MEDS: MICAFUNGIN SODIUM IV SCH (15:00)
[2020-08-27 15:06] LABS: INR 0.93 (0.85-1.15); PARTIAL THROMBOPLASTIN TIME 22.9 SEC (26.3-35.5); PROTHROMBIN TIME 10.1 SEC (9.6-11.6)
[2020-08-27] MEDS: MORPHINE 4 MG SYG IV PRN ×2 (15:07→21:45)
[2020-08-27] MEDS ORDERED: M.V.I. IV [ADULT] 10 ML in CLINIMIX-E4.25%AA/D5+LYT2000ML 2,000 ML IV SCH (16:00)
[2020-08-27] MEDS: FAT EMULSIONS 20% 250ML 250 ML IV SCH (17:00)
[2020-08-27] MEDS: IPRATROPIUM 0.5 MG/2.5 ML INH IH SCH ×3 (18:37→23:40)
[2020-08-27] MEDS: ONDANSETRON 4MG INJ IVP PRN (21:36)
[2020-08-27] MEDS ORDERED: 0.9% NACL 250ML 250 ML IV ONE (22:36)
[2020-08-27] MEDS ORDERED: 0.9%NACL 50ML 50 ML IV ONE (22:36)
[2020-08-27 23:21] LABS: APPEARANCE,URINE Cloudy (CLEAR); BILIRUBIN,URINE Small (NEGATIVE); COLOR,URINE Orange (YELLOW); GLUCOSE, URINE (UA) Negative (NEGATIVE); KETONES,URINE Negative (NEGATIVE); LEUKOCYTE ESTERASE ,URINE Small (NEGATIVE); NITRATE,URINE Negative (NEGATIVE); OCCULT BLOOD,URINE Large (NEGATIVE); PH,URINE 6.5 (5.0-8.0); PROTEIN,URINE 300 mg/dL (NEGATIVE)
[2020-08-27 23:36] LABS: AMORPHOUS SEDIMENT,UR Few /LPF (None Seen); BACTERIA,URINE Few /HPF (None Seen)
[2020-08-28] VITALS (21 sets, daily range): BP systolic 140–189; BP diastolic 64–84
[2020-08-28] MEDS: MORPHINE 4 MG SYG IV PRN ×3 (01:48→21:29)
[2020-08-28] MEDS: INSULIN HUMULIN R 100 UNIT/ML 3ML SQ SCH ×4 (02:28→18:00)
[2020-08-28 03:41] LABS: BASOPHILS % (AUTO) 0.3 % (0.0-5.0); EOSINOPHILS % (AUTO) 1.5 % (0.0-8.0); HEMATOCRIT 24.2 % (42-54); LYMPHOCYTES % (AUTO) 6.4 % (21.0-51.0); MEAN CORPUSCULAR HEMOGLOBIN 31.1 pg (27.0-33.0); MEAN CORPUSCULAR HGB CONC 30.6 g/dL (32.0-36.0); MEAN CORPUSCULAR VOLUME 101.7 fL (79-99); NEUTROPHILS % (AUTO) 87.1 % (40.0-77.0); NUCLEATED RED BLOOD CELLS 0.6 % (0.0-0.19); PLATELET COUNT (AUTO) 226 K/uL (130-400); RED BLOOD CELL COUNT(AUTO) 2.38 MIL/uL (4.50-6.20); RED CELL DISTRIBUTION WIDTH 15.8 % (11.0-15.5); WHITE BLOOD COUNT (AUTO) 9.4 K/uL (4.8-10.8)
[2020-08-28 04:17] LABS: ABG BASE EXCESS 4.7 mmol/L (-2.0-3.0); ABG HCO3 29.5 mmol/L (21.0-28.0); ABG OXYGEN SATURATION 95.4 % (95.0-99.0); ABG PCO2 44 mmHg (35-48)
[2020-08-28 04:18] LABS: ALBUMIN 1.2 g/dL (3.5-5.0); BILIRUBIN,TOTAL 1.5 mg/dL (0.2-1.0); CREATININE 1.5 mg/dL (0.5-1.5); MAGNESIUM 3.1 mg/dL (1.80-2.40); PHOSPHORUS 4.6 mg/dL (2.5-4.9); POTASSIUM 5.2 mmol/L (3.5-5.1); TOTAL PROTEIN, SERUM 5.2 g/dL (6.0-8.3)
[2020-08-28] MEDS: METRONIDAZOLE 500MG/100ML BAG 100 ML IVPB SCH ×3 (05:41→22:04)
[2020-08-28] MEDS: IPRATROPIUM 0.5 MG/2.5 ML INH IH SCH ×3 (06:25→18:48)
[2020-08-28] MEDS: MEROPENEM 1 GM VIAL IVP SCH ×2 (08:42→20:44)
[2020-08-28] MEDS: PANTOPRAZOLE 40 MG/VIAL IVP SCH ×2 (08:42→20:43)
[2020-08-28] MEDS: FAT EMULSIONS 20% 250ML 250 ML IV SCH (10:08)
[2020-08-28] MEDS: FOSPHENYTOIN SODIUM IJ SCH ×2 (10:09→20:59)
[2020-08-28] MEDS: DEXTROSE 5% IJ SCH ×2 (10:09→20:59)
[2020-08-28] MEDS: WATER IJ SCH ×2 (10:09→20:59)
[2020-08-28] MEDS: VANCOMYCIN IV SCH ×2 (10:10→21:54)
[2020-08-28] MEDS: DEXTROSE 5% IV SCH ×5 (10:10→21:54)
[2020-08-28] MEDS: LEVETIRACETAM IV SCH ×2 (10:10→21:12)
[2020-08-28] MEDS: WATER IV SCH ×5 (10:10→21:54)
[2020-08-28] MEDS ORDERED: PHARMACY COMMUNICATION MISC SCH (14:45)
[2020-08-28] MEDS: MICAFUNGIN SODIUM IV SCH (15:03)
[2020-08-28] MEDS ORDERED: M.V.I. IV [ADULT] 10 ML in CLINIMIX-E4.25%AA/D5+LYT2000ML 2,000 ML IV SCH (15:15)
[2020-08-28] MEDS: WATER IV NR (15:45)
[2020-08-28] MEDS: SODIUM BICARB IV NR (15:45)
[2020-08-28] MEDS: DEXTROSE 5% IV NR (15:45)
[2020-08-28] MEDS: 1/2 NS 1000ML 1,000 ML IV SCH ×2 (15:46→21:00)
[2020-08-29] VITALS (20 sets, daily range): BP systolic 123–176; BP diastolic 67–125
[2020-08-29] MEDS: INSULIN HUMULIN R 100 UNIT/ML 3ML SQ SCH ×4 (00:37→18:00)
[2020-08-29 03:42] LABS: BASOPHILS % (AUTO) 0.3 % (0.0-5.0); EOSINOPHILS % (AUTO) 1.2 % (0.0-8.0); HEMATOCRIT 25.3 % (42-54); LYMPHOCYTES % (AUTO) 6.4 % (21.0-51.0); MEAN CORPUSCULAR HEMOGLOBIN 31.2 pg (27.0-33.0); MEAN CORPUSCULAR HGB CONC 30.4 g/dL (32.0-36.0); MEAN CORPUSCULAR VOLUME 102.4 fL (79-99); MONOCYTES % (AUTO) 5.4 % (3.0-13.0); NUCLEATED RED BLOOD CELLS 0.5 % (0.0-0.19); PLATELET COUNT (AUTO) 268 K/uL (130-400); RED BLOOD CELL COUNT(AUTO) 2.47 MIL/uL (4.50-6.20); RED CELL DISTRIBUTION WIDTH 15.4 % (11.0-15.5); WHITE BLOOD COUNT (AUTO) 8.6 K/uL (4.8-10.8)
[2020-08-29 04:13] LABS: ABG BASE EXCESS 1.9 mmol/L (-2.0-3.0); ABG OXYGEN SATURATION 96.9 % (95.0-99.0); ABG PCO2 44 mmHg (35-48)
[2020-08-29 04:23] LABS: ALBUMIN 1.2 g/dL (3.5-5.0); BILIRUBIN,TOTAL 1.7 mg/dL (0.2-1.0); CREATININE 0.2 mg/dL (0.5-1.5); MAGNESIUM 2.8 mg/dL (1.80-2.40); PHOSPHORUS 4.2 mg/dL (2.5-4.9); POTASSIUM 4.8 mmol/L (3.5-5.1); TOTAL PROTEIN, SERUM 5.5 g/dL (6.0-8.3)
[2020-08-29] MEDS: 1/2 NS 1000ML 1,000 ML IV SCH ×3 (05:16→17:25)
[2020-08-29] MEDS: METRONIDAZOLE 500MG/100ML BAG 100 ML IVPB SCH ×3 (05:17→21:12)
[2020-08-29] MEDS: IPRATROPIUM 0.5 MG/2.5 ML INH IH SCH ×4 (06:29→18:56)
[2020-08-29] MEDS: PANTOPRAZOLE 40 MG/VIAL IVP SCH ×2 (08:27→20:34)
[2020-08-29] MEDS: MEROPENEM 1 GM VIAL IVP SCH ×2 (08:27→20:40)
[2020-08-29] MEDS: WATER IV SCH ×5 (08:29→22:40)
[2020-08-29] MEDS: FOSPHENYTOIN SODIUM IJ SCH ×2 (08:29→20:34)
[2020-08-29] MEDS: DEXTROSE 5% IJ SCH ×2 (08:29→20:34)
[2020-08-29] MEDS: WATER IJ SCH ×2 (08:29→20:34)
[2020-08-29] MEDS: DEXTROSE 5% IV SCH ×5 (08:29→22:40)
[2020-08-29] MEDS: LEVETIRACETAM IV SCH ×2 (08:29→20:35)
[2020-08-29] MEDS: FAT EMULSIONS 20% 250ML 250 ML IV SCH (08:30)
[2020-08-29] MEDS: VANCOMYCIN IV SCH ×2 (10:43→22:40)
[2020-08-29] MEDS ORDERED: DOCUSATE NA 100MG/10ML UDCUP PO PRN (11:30)
[2020-08-29] MEDS ORDERED: ACETAMINOPHEN 325 MG/10.15ML UDCUP PO PRN (15:30)
[2020-08-29] MEDS: ACETAMINOPHEN 325 MG TAB PO PRN (16:20)
[2020-08-29] MEDS: MICAFUNGIN SODIUM IV SCH (17:00)
[2020-08-29] MEDS: SODIUM BICARB IV NR (17:12)
[2020-08-29] MEDS: DEXTROSE 5% IV NR (17:12)
[2020-08-29] MEDS: WATER IV NR (17:12)
[2020-08-29] MEDS ORDERED: LABETALOL 20MG VIAL IV PRN (17:15)
[2020-08-29] MEDS ORDERED: M.V.I. IV [ADULT] 10 ML in CLINIMIX-E4.25%AA/D5+LYT2000ML 2,000 ML IV SCH (17:30)
[2020-08-30] VITALS (24 sets, daily range): BP systolic 119–149; BP diastolic 60–91
[2020-08-30] MEDS: IPRATROPIUM 0.5 MG/2.5 ML INH IH SCH ×4 (00:07→18:13)
[2020-08-30] MEDS: 1/2 NS 1000ML 1,000 ML IV SCH ×4 (00:35→19:52)
[2020-08-30] MEDS: MORPHINE 4 MG SYG IV PRN (03:55)
[2020-08-30 05:17] LABS: BASOPHILS % (AUTO) 0.3 % (0.0-5.0); EOSINOPHILS % (AUTO) 0.9 % (0.0-8.0); HEMATOCRIT 24.6 % (42-54); LYMPHOCYTES % (AUTO) 8.9 % (21.0-51.0); MEAN CORPUSCULAR HGB CONC 29.7 g/dL (32.0-36.0); MEAN CORPUSCULAR VOLUME 101.2 fL (79-99); MONOCYTES % (AUTO) 6.9 % (3.0-13.0); NUCLEATED RED BLOOD CELLS 0.4 % (0.0-0.19); PLATELET COUNT (AUTO) 296 K/uL (130-400); RED BLOOD CELL COUNT(AUTO) 2.43 MIL/uL (4.50-6.20); RED CELL DISTRIBUTION WIDTH 14.7 % (11.0-15.5); WHITE BLOOD COUNT (AUTO) 7.8 K/uL (4.8-10.8)
[2020-08-30] MEDS: METRONIDAZOLE 500MG/100ML BAG 100 ML IVPB SCH ×3 (05:50→22:02)
[2020-08-30] MEDS: INSULIN HUMULIN R 100 UNIT/ML 3ML SQ SCH ×5 (06:00→21:00)
[2020-08-30 06:21] LABS: ALBUMIN 1.1 g/dL (3.5-5.0); BILIRUBIN,TOTAL 1.8 mg/dL (0.2-1.0); CREATININE 1.3 mg/dL (0.5-1.5); MAGNESIUM 2.6 mg/dL (1.80-2.40); PHOSPHORUS 3.7 mg/dL (2.5-4.9); POTASSIUM 4.6 mmol/L (3.5-5.1); TOTAL PROTEIN, SERUM 5.6 g/dL (6.0-8.3)
[2020-08-30] MEDS: PANTOPRAZOLE 40 MG/VIAL IVP SCH ×2 (08:07→20:39)
[2020-08-30] MEDS: LEVETIRACETAM IV SCH ×2 (08:07→20:39)
[2020-08-30] MEDS: DEXTROSE 5% IJ SCH ×2 (08:07→21:05)
[2020-08-30] MEDS: WATER IJ SCH ×2 (08:07→21:05)
[2020-08-30] MEDS: MEROPENEM 1 GM VIAL IVP SCH ×2 (08:07→21:05)
[2020-08-30] MEDS: WATER IV SCH ×5 (08:07→22:05)
[2020-08-30] MEDS: FOSPHENYTOIN SODIUM IJ SCH ×2 (08:07→21:05)
[2020-08-30] MEDS: DEXTROSE 5% IV SCH ×5 (08:07→22:05)
[2020-08-30] MEDS: FAT EMULSIONS 20% 250ML 250 ML IV SCH (09:33)
[2020-08-30] MEDS: VANCOMYCIN IV SCH ×2 (09:35→22:05)
[2020-08-30] MEDS: ACETAMINOPHEN 325 MG/10.15ML UDCUP PO PRN (12:35)
[2020-08-30] MEDS: MICAFUNGIN SODIUM IV SCH (13:54)
[2020-08-30] MEDS: ACETYLCYSTEINE 10% 100MG/ML 4ML VIAL IH SCH (18:13)
[2020-08-31] VITALS (15 sets, daily range): BP systolic 106–144; BP diastolic 52–74
[2020-08-31] MEDS: ACETYLCYSTEINE 10% 100MG/ML 4ML VIAL IH SCH ×3 (00:16→11:06)
[2020-08-31] MEDS: IPRATROPIUM 0.5 MG/2.5 ML INH IH SCH ×5 (00:16→23:15)
[2020-08-31] MEDS: 1/2 NS 1000ML 1,000 ML IV SCH ×2 (04:02→08:32)
[2020-08-31 05:12] LABS: BASOPHILS % (AUTO) 0.4 % (0.0-5.0); EOSINOPHILS % (AUTO) 0.9 % (0.0-8.0); HEMATOCRIT 23.1 % (42-54); LYMPHOCYTES % (AUTO) 9.8 % (21.0-51.0); MEAN CORPUSCULAR HEMOGLOBIN 31.4 pg (27.0-33.0); MEAN CORPUSCULAR HGB CONC 31.2 g/dL (32.0-36.0); MEAN CORPUSCULAR VOLUME 100.9 fL (79-99); MONOCYTES % (AUTO) 7.6 % (3.0-13.0); NEUTROPHILS % (AUTO) 79.9 % (40.0-77.0); NUCLEATED RED BLOOD CELLS 0.4 % (0.0-0.19); PLATELET COUNT (AUTO) 305 K/uL (130-400); RED BLOOD CELL COUNT(AUTO) 2.29 MIL/uL (4.50-6.20); RED CELL DISTRIBUTION WIDTH 14.8 % (11.0-15.5); WHITE BLOOD COUNT (AUTO) 8.1 K/uL (4.8-10.8)
[2020-08-31 05:35] LABS: ALBUMIN 1.3 g/dL (3.5-5.0); BILIRUBIN,DIRECT 1.2 mg/dL (0.0-0.3); BILIRUBIN,TOTAL 1.6 mg/dL (0.2-1.0); CREATININE 1.2 mg/dL (0.5-1.5); MAGNESIUM 2.5 mg/dL (1.80-2.40); PHOSPHORUS 3.6 mg/dL (2.5-4.9); POTASSIUM 4.4 mmol/L (3.5-5.1); TOTAL PROTEIN, SERUM 5.6 g/dL (6.0-8.3)
[2020-08-31] MEDS: METRONIDAZOLE 500MG/100ML BAG 100 ML IVPB SCH ×3 (05:52→21:01)
[2020-08-31] MEDS: INSULIN HUMULIN R 100 UNIT/ML 3ML SQ SCH ×3 (07:15→21:00)
[2020-08-31] MEDS: DEXTROSE 5% IV SCH ×5 (08:31→21:01)
[2020-08-31] MEDS: WATER IV SCH ×5 (08:31→21:01)
[2020-08-31] MEDS: LEVETIRACETAM IV SCH ×2 (08:31→21:01)
[2020-08-31] MEDS: WATER IJ SCH ×2 (08:32→21:01)
[2020-08-31] MEDS: MEROPENEM 1 GM VIAL IVP SCH ×2 (08:32→21:01)
[2020-08-31] MEDS: DEXTROSE 5% IJ SCH ×2 (08:32→21:01)
[2020-08-31] MEDS: FOSPHENYTOIN SODIUM IJ SCH ×2 (08:32→21:01)
[2020-08-31] MEDS: PANTOPRAZOLE 40 MG/VIAL IVP SCH ×2 (08:32→21:00)
[2020-08-31] MEDS: HYDROMORPHONE 0.5 MG SYG (0.5MG/0.5ML) IVP PRN ×2 (08:33→21:08)
[2020-08-31] MEDS: ACETAMINOPHEN 325 MG/10.15ML UDCUP PO PRN (08:35)
[2020-08-31] MEDS: VANCOMYCIN IV SCH ×2 (11:23→21:00)
[2020-08-31] MEDS: MICAFUNGIN SODIUM IV SCH (14:11)
[2020-08-31] MEDS: LACTATED RINGERS 1000ML 1,000 ML IV SCH ×2 (14:12→22:45)
[2020-09-01] MEDS: HYDROMORPHONE 0.5 MG SYG (0.5MG/0.5ML) IVP PRN ×3 (03:10→20:43)
[2020-09-01 03:31] VITALS: BP 123/59
[2020-09-01] MEDS: METRONIDAZOLE 500MG/100ML BAG 100 ML IVPB SCH (05:24)
[2020-09-01] MEDS: INSULIN HUMULIN R 100 UNIT/ML 3ML SQ SCH ×4 (05:31→20:04)
[2020-09-01 06:12] LABS: ALBUMIN 1.1 g/dL (3.5-5.0); BILIRUBIN,DIRECT 0.9 mg/dL (0.0-0.3); BILIRUBIN,TOTAL 1.2 mg/dL (0.2-1.0); CREATININE 1.2 mg/dL (0.5-1.5); MAGNESIUM 2.3 mg/dL (1.80-2.40); PHOSPHORUS 3.6 mg/dL (2.5-4.9); POTASSIUM 4.1 mmol/L (3.5-5.1); TOTAL PROTEIN, SERUM 5.3 g/dL (6.0-8.3)
[2020-09-01] MEDS: IPRATROPIUM 0.5 MG/2.5 ML INH IH SCH ×3 (06:50→18:36)
[2020-09-01 06:57] LABS: BASOPHILS % (AUTO) 0.3 % (0.0-5.0); EOSINOPHILS % (AUTO) 0.9 % (0.0-8.0); HEMATOCRIT 22.1 % (42-54); LYMPHOCYTES % (AUTO) 11.1 % (21.0-51.0); MEAN CORPUSCULAR HEMOGLOBIN 30.7 pg (27.0-33.0); MEAN CORPUSCULAR HGB CONC 29.9 g/dL (32.0-36.0); MEAN CORPUSCULAR VOLUME 102.8 fL (79-99); MONOCYTES % (AUTO) 8.8 % (3.0-13.0); PLATELET COUNT (AUTO) 337 K/uL (130-400); RED BLOOD CELL COUNT(AUTO) 2.15 MIL/uL (4.50-6.20); RED CELL DISTRIBUTION WIDTH 14.7 % (11.0-15.5)
[2020-09-01] MEDS: LACTATED RINGERS 1000ML 1,000 ML IV SCH (08:45)
[2020-09-01 08:52] VITALS: BP 135/64
[2020-09-01] MEDS: WATER IV SCH ×5 (09:13→23:13)
[2020-09-01] MEDS: WATER IJ SCH ×2 (09:13→20:04)
[2020-09-01] MEDS: DEXTROSE 5% IV SCH ×5 (09:13→23:13)
[2020-09-01] MEDS: DEXTROSE 5% IJ SCH ×2 (09:13→20:04)
[2020-09-01] MEDS: FOSPHENYTOIN SODIUM IJ SCH ×2 (09:13→20:04)
[2020-09-01] MEDS: PANTOPRAZOLE 40 MG/VIAL IVP SCH ×2 (09:13→20:03)
[2020-09-01] MEDS: LEVETIRACETAM IV SCH ×2 (09:13→20:04)
[2020-09-01] MEDS ORDERED: COMPOUND PO MISCELLANEOUS 1 EACH MISC MISC PRN (12:30)
[2020-09-01] MEDS ORDERED: PHARMACY COMMUNICATION MISC SCH (12:30)
[2020-09-01 12:55] VITALS: BP 131/69
[2020-09-01] MEDS: VANCOMYCIN IV SCH ×2 (12:55→23:13)
[2020-09-01] MEDS ORDERED: LIDO 2% VISC 30ML+MAG/AL/SIMETH 30ML+DICYCLOMINE 20MG 10ML PO ONE ×3 (13:45)
[2020-09-01 17:25] LABS: HEMATOCRIT 27.1 % (42-54)
[2020-09-01 17:27] VITALS: BP 137/50
[2020-09-01] MEDS: FUROSEMIDE 20MG VIAL IV SCH (17:31)
[2020-09-01] MEDS: MICAFUNGIN SODIUM IV SCH (17:31)
[2020-09-01 20:18] VITALS: BP 144/82
[2020-09-01] MEDS: BENZOCAINE/MENTH/CETYLPYRD CL 1 EACH LOZENGE MM PRN (20:31)
[2020-09-02 00:03] VITALS: BP 138/76
[2020-09-02] MEDS: IPRATROPIUM 0.5 MG/2.5 ML INH IH SCH ×5 (00:31→23:15)
[2020-09-02] MEDS: HYDROMORPHONE 0.5 MG SYG (0.5MG/0.5ML) IVP PRN ×4 (02:16→22:01)
[2020-09-02 04:29] VITALS: BP 130/76
[2020-09-02 05:36] LABS: BASOPHILS % (AUTO) 0.3 % (0.0-5.0); EOSINOPHILS % (AUTO) 1.2 % (0.0-8.0); HEMATOCRIT 25.6 % (42-54); LYMPHOCYTES % (AUTO) 11.2 % (21.0-51.0); MEAN CORPUSCULAR HEMOGLOBIN 30.6 pg (27.0-33.0); MEAN CORPUSCULAR HGB CONC 30.9 g/dL (32.0-36.0); MEAN CORPUSCULAR VOLUME 99.2 fL (79-99); MONOCYTES % (AUTO) 8.6 % (3.0-13.0); NEUTROPHILS % (AUTO) 77.8 % (40.0-77.0); NUCLEATED RED BLOOD CELLS 0.3 % (0.0-0.19); PLATELET COUNT (AUTO) 352 K/uL (130-400); RED BLOOD CELL COUNT(AUTO) 2.58 MIL/uL (4.50-6.20); RED CELL DISTRIBUTION WIDTH 16.4 % (11.0-15.5); WHITE BLOOD COUNT (AUTO) 6.6 K/uL (4.8-10.8)
[2020-09-02 06:15] LABS: ALBUMIN 1.2 g/dL (3.5-5.0); BILIRUBIN,TOTAL 1.1 mg/dL (0.2-1.0); CREATININE 1.3 mg/dL (0.5-1.5); MAGNESIUM 2.2 mg/dL (1.80-2.40); PHOSPHORUS 3.6 mg/dL (2.5-4.9); POTASSIUM 3.8 mmol/L (3.5-5.1); TOTAL PROTEIN, SERUM 5.5 g/dL (6.0-8.3)
[2020-09-02] MEDS: FUROSEMIDE 20MG VIAL IV SCH ×3 (06:20→22:03)
[2020-09-02] MEDS: BENZOCAINE/MENTH/CETYLPYRD CL 1 EACH LOZENGE MM PRN (07:19)
[2020-09-02] MEDS: INSULIN HUMULIN R 100 UNIT/ML 3ML SQ SCH ×4 (07:30→20:12)
[2020-09-02 08:00] VITALS: BP 122/58
[2020-09-02] MEDS: WATER IV SCH ×5 (09:24→22:00)
[2020-09-02] MEDS: DEXTROSE 5% IV SCH ×5 (09:24→22:00)
[2020-09-02] MEDS: WATER IJ SCH (09:24)
[2020-09-02] MEDS: FOSPHENYTOIN SODIUM IJ SCH (09:24)
[2020-09-02] MEDS: PANTOPRAZOLE 40 MG/VIAL IVP SCH ×2 (09:24→21:59)
[2020-09-02] MEDS: LEVETIRACETAM IV SCH ×2 (09:24→22:00)
[2020-09-02] MEDS: DEXTROSE 5% IJ SCH (09:24)
[2020-09-02] MEDS: VANCOMYCIN IV SCH ×2 (10:27→22:00)
[2020-09-02 12:00] VITALS: BP 137/69
[2020-09-02 16:14] VITALS: BP 140/74
[2020-09-02] MEDS: MICAFUNGIN SODIUM IV SCH (17:34)
[2020-09-02] MEDS ORDERED: TRAMADOL HCL 50 MG TABLET PO PRN (19:00)
[2020-09-02 20:16] VITALS: BP 148/77
[2020-09-03 00:13] VITALS: BP 126/62
[2020-09-03] MEDS: FUROSEMIDE 20MG VIAL IV SCH ×3 (04:12→17:59)
[2020-09-03] MEDS: HYDROMORPHONE 0.5 MG SYG (0.5MG/0.5ML) IVP PRN ×3 (04:13→22:00)
[2020-09-03 04:49] VITALS: BP 128/66
[2020-09-03 05:14] LABS: HEMATOCRIT 27.3 % (42-54); MEAN CORPUSCULAR HEMOGLOBIN 30.3 pg (27.0-33.0); MEAN CORPUSCULAR HGB CONC 30.8 g/dL (32.0-36.0); MEAN CORPUSCULAR VOLUME 98.6 fL (79-99); RED BLOOD CELL COUNT(AUTO) 2.77 MIL/uL (4.50-6.20); RED CELL DISTRIBUTION WIDTH 15.7 % (11.0-15.5); WHITE BLOOD COUNT (AUTO) 7.4 K/uL (4.8-10.8)
[2020-09-03 05:23] LABS: CREATININE 1.2 mg/dL (0.5-1.5); POTASSIUM 3.8 mmol/L (3.5-5.1)
[2020-09-03] MEDS: IPRATROPIUM 0.5 MG/2.5 ML INH IH SCH ×3 (06:19→18:07)
[2020-09-03 06:44] LABS: ABG BASE EXCESS 3.3 mmol/L (-2.0-3.0); ABG HCO3 27.4 mmol/L (21.0-28.0); ABG OXYGEN SATURATION 93.9 % (95.0-99.0); ABG PCO2 40 mmHg (35-48)
[2020-09-03] MEDS: INSULIN HUMULIN R 100 UNIT/ML 3ML SQ SCH ×4 (06:46→21:00)
[2020-09-03 07:00] VITALS: BP 130/72
[2020-09-03] MEDS: DEXTROSE 5% IV SCH ×3 (10:26→21:36)
[2020-09-03] MEDS: LEVETIRACETAM IV SCH ×2 (10:26→21:36)
[2020-09-03] MEDS: PANTOPRAZOLE 40 MG/VIAL IVP SCH ×2 (10:26→21:36)
[2020-09-03] MEDS: WATER IV SCH ×3 (10:26→21:36)
[2020-09-03 11:00] VITALS: BP 126/63
[2020-09-03] MEDS: MEROPENEM 1 GM VIAL IVP SCH ×2 (12:04→21:37)
[2020-09-03] MEDS: LINEZOLID 600 MG/ISO-OSM 300 ML IV SCH (12:23)
[2020-09-03] MEDS: METRONIDAZOLE 500MG/100ML BAG 100 ML IVPB SCH ×2 (14:14→21:36)
[2020-09-03] MEDS: MICAFUNGIN SODIUM IV SCH (14:14)
[2020-09-03] MEDS ORDERED: PHARMACY COMMUNICATION MISC SCH ×2 (14:45→18:00)
[2020-09-03 16:00] VITALS: BP 132/60
[2020-09-03 20:00] VITALS: BP 118/85
[2020-09-04] VITALS (14 sets, daily range): BP systolic 119–168; BP diastolic 64–89
[2020-09-04] MEDS: IPRATROPIUM 0.5 MG/2.5 ML INH IH SCH ×4 (00:22→18:48)
[2020-09-04] MEDS: LINEZOLID 600 MG/ISO-OSM 300 ML IV SCH ×3 (00:38→20:27)
[2020-09-04] MEDS: MEROPENEM 1 GM VIAL IVP SCH ×3 (04:20→20:27)
[2020-09-04] MEDS: HYDROMORPHONE 0.5 MG SYG (0.5MG/0.5ML) IVP PRN ×3 (04:21→23:46)
[2020-09-04 05:38] LABS: BASOPHILS % (AUTO) 0.4 % (0.0-5.0); EOSINOPHILS % (AUTO) 1.1 % (0.0-8.0); HEMATOCRIT 25.3 % (42-54); LYMPHOCYTES % (AUTO) 11.8 % (21.0-51.0); MEAN CORPUSCULAR HEMOGLOBIN 30.9 pg (27.0-33.0); MEAN CORPUSCULAR HGB CONC 31.2 g/dL (32.0-36.0); MEAN CORPUSCULAR VOLUME 98.8 fL (79-99); MONOCYTES % (AUTO) 10.3 % (3.0-13.0); NEUTROPHILS % (AUTO) 75.7 % (40.0-77.0); PLATELET COUNT (AUTO) 304 K/uL (130-400); RED BLOOD CELL COUNT(AUTO) 2.56 MIL/uL (4.50-6.20); RED CELL DISTRIBUTION WIDTH 15.6 % (11.0-15.5); WHITE BLOOD COUNT (AUTO) 5.4 K/uL (4.8-10.8)
[2020-09-04 05:50] LABS: INR 1.14 (0.85-1.15); PROTHROMBIN TIME 12.2 SEC (9.6-11.6)
[2020-09-04 06:14] LABS: ALBUMIN 1.2 g/dL (3.5-5.0); BILIRUBIN,TOTAL 0.8 mg/dL (0.2-1.0); CREATININE 1.1 mg/dL (0.5-1.5); POTASSIUM 3.6 mmol/L (3.5-5.1); TOTAL PROTEIN, SERUM 5.6 g/dL (6.0-8.3)
[2020-09-04] MEDS: METRONIDAZOLE 500MG/100ML BAG 100 ML IVPB SCH ×3 (06:34→20:28)
[2020-09-04] MEDS: INSULIN HUMULIN R 100 UNIT/ML 3ML SQ SCH ×4 (06:34→21:00)
[2020-09-04] MEDS: PANTOPRAZOLE 40 MG/VIAL IVP SCH ×2 (09:18→20:27)
[2020-09-04] MEDS: WATER IV SCH ×3 (09:18→20:37)
[2020-09-04] MEDS: DEXTROSE 5% IV SCH ×3 (09:18→20:37)
[2020-09-04] MEDS: LEVETIRACETAM IV SCH ×2 (09:18→20:37)
[2020-09-04] MEDS ORDERED: FENTANYL CITRATE PF 50 MCG/1 ML 2ML VIAL ONE (10:52)
[2020-09-04] MEDS: FUROSEMIDE 20MG VIAL IV SCH ×2 (12:13→20:28)
[2020-09-04] MEDS: MICAFUNGIN SODIUM IV SCH (14:28)
[2020-09-04] MEDS ORDERED: SUCRALFATE 1 GM TABLET PO SCH (17:00)
[2020-09-04] MEDS: SUCRALFATE 1 GM TABLET PO SCH (20:28)
[2020-09-05] VITALS (13 sets, daily range): BP systolic 119–150; BP diastolic 63–76
[2020-09-05] MEDS: IPRATROPIUM 0.5 MG/2.5 ML INH IH SCH ×5 (00:07→23:21)
[2020-09-05] MEDS: FUROSEMIDE 20MG VIAL IV SCH ×3 (04:30→22:43)
[2020-09-05] MEDS: MEROPENEM 1 GM VIAL IVP SCH ×3 (04:39→22:43)
[2020-09-05] MEDS: METRONIDAZOLE 500MG/100ML BAG 100 ML IVPB SCH ×3 (04:39→22:44)
[2020-09-05] MEDS: HYDROMORPHONE 0.5 MG SYG (0.5MG/0.5ML) IVP PRN ×3 (04:42→23:46)
[2020-09-05] MEDS: INSULIN HUMULIN R 100 UNIT/ML 3ML SQ SCH ×4 (05:31→21:00)
[2020-09-05] MEDS ORDERED: PROPOFOL 10 MG/ML 20ML VIAL IV ONE (07:42)
[2020-09-05] MEDS: SUCRALFATE 1 GM TABLET PO SCH ×3 (09:00→21:00)
[2020-09-05] MEDS: WATER IV SCH ×3 (09:17→22:43)
[2020-09-05] MEDS: PANTOPRAZOLE 40 MG/VIAL IVP SCH ×2 (09:17→22:43)
[2020-09-05] MEDS: LEVETIRACETAM IV SCH ×2 (09:17→22:43)
[2020-09-05] MEDS: DEXTROSE 5% IV SCH ×3 (09:17→22:43)
[2020-09-05] MEDS: LINEZOLID 600 MG/ISO-OSM 300 ML IV SCH ×2 (09:17→22:44)
[2020-09-05 12:50] LABS: ALBUMIN 1.4 g/dL (3.5-5.0); BILIRUBIN,TOTAL 0.8 mg/dL (0.2-1.0); MAGNESIUM 2.1 mg/dL (1.80-2.40); PHOSPHORUS 3.7 mg/dL (2.5-4.9); POTASSIUM 3.7 mmol/L (3.5-5.1)
[2020-09-05] MEDS: MICAFUNGIN SODIUM IV SCH (14:11)
[2020-09-05] MEDS ORDERED: COMPOUND IV REFRIGERATED 1 EACH IVSOLN MISC PRN (17:30)
[2020-09-05] MEDS: CLINIMIX-E 5%AA /D15%W 2000ML 2,000 ML IV SCH (18:27)
[2020-09-05] MEDS: FAT EMULSIONS 20% 250ML 250 ML IV SCH (22:45)
[2020-09-06] VITALS (38 sets, daily range): BP systolic 101–178; BP diastolic 33–100
[2020-09-06 05:34] LABS: BASOPHILS % (AUTO) 0.3 % (0.0-5.0); EOSINOPHILS % (AUTO) 0.7 % (0.0-8.0); HEMATOCRIT 24.8 % (42-54); LYMPHOCYTES % (AUTO) 12.3 % (21.0-51.0); MEAN CORPUSCULAR HEMOGLOBIN 31.5 pg (27.0-33.0); MEAN CORPUSCULAR HGB CONC 31.9 g/dL (32.0-36.0); MEAN CORPUSCULAR VOLUME 98.8 fL (79-99); MONOCYTES % (AUTO) 8.2 % (3.0-13.0); NEUTROPHILS % (AUTO) 77.8 % (40.0-77.0); PLATELET COUNT (AUTO) 366 K/uL (130-400); RED BLOOD CELL COUNT(AUTO) 2.51 MIL/uL (4.50-6.20); RED CELL DISTRIBUTION WIDTH 14.6 % (11.0-15.5); WHITE BLOOD COUNT (AUTO) 6.7 K/uL (4.8-10.8)
[2020-09-06] MEDS: METRONIDAZOLE 500MG/100ML BAG 100 ML IVPB SCH ×3 (05:38→22:11)
[2020-09-06] MEDS: MEROPENEM 1 GM VIAL IVP SCH ×3 (05:38→22:11)
[2020-09-06] MEDS: FUROSEMIDE 20MG VIAL IV SCH ×2 (05:38→18:30)
[2020-09-06 05:44] LABS: CREATININE 1.1 mg/dL (0.5-1.5); PHOSPHORUS 3.4 mg/dL (2.5-4.9); POTASSIUM 3.5 mmol/L (3.5-5.1)
[2020-09-06] MEDS: INSULIN HUMULIN R 100 UNIT/ML 3ML SQ SCH ×4 (05:56→21:00)
[2020-09-06] MEDS: IPRATROPIUM 0.5 MG/2.5 ML INH IH SCH ×2 (06:25→11:03)
[2020-09-06] MEDS: SUCRALFATE 1 GM TABLET PO SCH ×3 (07:37→21:00)
[2020-09-06] MEDS: PANTOPRAZOLE 40 MG/VIAL IVP SCH (07:40)
[2020-09-06] MEDS: HYDROMORPHONE 0.5 MG SYG (0.5MG/0.5ML) IVP PRN ×3 (07:41→16:40)
[2020-09-06] MEDS: LINEZOLID 600 MG/ISO-OSM 300 ML IV SCH ×2 (07:41→22:37)
[2020-09-06] MEDS: LEVETIRACETAM IV SCH ×2 (09:38→22:01)
[2020-09-06] MEDS: DEXTROSE 5% IV SCH ×3 (09:38→22:01)
[2020-09-06] MEDS: WATER IV SCH ×3 (09:38→22:01)
[2020-09-06] MEDS: MICAFUNGIN SODIUM IV SCH (16:11)
[2020-09-06 17:14] LABS: ABG BASE EXCESS 0.9 mmol/L (-2.0-3.0); ABG HCO3 23.8 mmol/L (21.0-28.0); ABG OXYGEN SATURATION 72.6 % (95.0-99.0); ABG PCO2 31 mmHg (35-48)
[2020-09-06 17:21] LABS: HEMATOCRIT 24.6 % (42-54)
[2020-09-06] MEDS ORDERED: PROPOFOL 1000 MG/100 ML 100 ML IV ONE (17:43)
[2020-09-06] MEDS ORDERED: PROPOFOL 1000 MG/100 ML 100 ML IV SCH (17:45)
[2020-09-06] MEDS ORDERED: MIDAZOLAM 100MG-0.9% NS 100ML 100ML BAG IV ONE (17:45)
[2020-09-06 17:58] LABS: HEMATOCRIT 24.2 % (42-54)
[2020-09-06] MEDS ORDERED: PHARMACY COMMUNICATION MISC SCH (18:00)
[2020-09-06 18:14] LABS: CREATININE 1.2 mg/dL (0.5-1.5)
[2020-09-06 18:17] LABS: INR 1.06 (0.85-1.15); PARTIAL THROMBOPLASTIN TIME 23.9 SEC (26.3-35.5); PROTHROMBIN TIME 11.4 SEC (9.6-11.6)
[2020-09-06 18:23] LABS: ALBUMIN 1.3 g/dL (3.5-5.0); TOTAL PROTEIN, SERUM 5.9 g/dL (6.0-8.3)
[2020-09-06 18:36] LABS: BILIRUBIN,TOTAL 0.7 mg/dL (0.2-1.0)
[2020-09-06 19:15] LABS: ABG BASE EXCESS 1.4 mmol/L (-2.0-3.0); ABG HCO3 25.6 mmol/L (21.0-28.0); ABG PCO2 39 mmHg (35-48)
[2020-09-06] MEDS: MIDAZOLAM 100MG-0.9% NS 100ML 100 ML IV SCH ×2 (19:57→23:04)
[2020-09-06] MEDS: PROPOFOL 1000 MG/100 ML 100 ML IV SCH ×2 (21:35→22:11)
[2020-09-06] MEDS: CLINIMIX-E 5%AA /D15%W 2000ML 2,000 ML IV SCH (22:03)
[2020-09-06] MEDS: PANTOPRAZOLE 40MG INJ 80 MG in 0.9%NACL 100ML 100 ML IVP SCH (22:13)
[2020-09-06] MEDS ORDERED: 0.9%NACL 1000ML 1,000 ML IV ONE (22:23)
[2020-09-06] MEDS: FAT EMULSIONS 20% 250ML 250 ML IV SCH (22:38)
[2020-09-07] VITALS (27 sets, daily range): BP systolic 125–156; BP diastolic 44–89
[2020-09-07 00:33] LABS: HEMATOCRIT 20.1 % (42-54)
[2020-09-07] MEDS: PROPOFOL 1000 MG/100 ML 100 ML IV SCH ×5 (02:05→22:43)
[2020-09-07] MEDS: FUROSEMIDE 20MG VIAL IV SCH ×3 (02:10→17:53)
[2020-09-07] MEDS: MEROPENEM 1 GM VIAL IVP SCH ×3 (04:49→20:26)
[2020-09-07] MEDS: ACETAMINOPHEN 650 MG SUPPOSITORY RC PRN ×2 (04:49→16:18)
[2020-09-07] MEDS: METRONIDAZOLE 500MG/100ML BAG 100 ML IVPB SCH ×3 (05:06→21:15)
[2020-09-07] MEDS ORDERED: PHARMACY COMMUNICATION MISC SCH ×2 (05:15→20:00)
[2020-09-07] MEDS: INSULIN HUMULIN R 100 UNIT/ML 3ML SQ SCH ×4 (05:58→21:00)
[2020-09-07 07:40] LABS: HEMATOCRIT 26.1 % (42-54); MEAN CORPUSCULAR HEMOGLOBIN 31.1 pg (27.0-33.0); MEAN CORPUSCULAR HGB CONC 32.2 g/dL (32.0-36.0); MEAN CORPUSCULAR VOLUME 96.7 fL (79-99); NUCLEATED RED BLOOD CELLS 0.3 % (0.0-0.19); RED BLOOD CELL COUNT(AUTO) 2.7 MIL/uL (4.50-6.20); RED CELL DISTRIBUTION WIDTH 14.9 % (11.0-15.5); WHITE BLOOD COUNT (AUTO) 7.4 K/uL (4.8-10.8)
[2020-09-07 07:54] LABS: POTASSIUM 3.2 mmol/L (3.5-5.1)
[2020-09-07] MEDS: SUCRALFATE 1 GM TABLET PO SCH ×3 (07:56→20:26)
[2020-09-07 08:40] LABS: ABG BASE EXCESS 2.5 mmol/L (-2.0-3.0); ABG HCO3 22.8 mmol/L (21.0-28.0); ABG OXYGEN SATURATION 99.4 % (95.0-99.0); ABG PCO2 25 mmHg (35-48)
[2020-09-07] MEDS: DEXTROSE 5% IV SCH ×3 (08:45→20:17)
[2020-09-07] MEDS: LINEZOLID 600 MG/ISO-OSM 300 ML IV SCH ×2 (08:45→21:42)
[2020-09-07] MEDS: PANTOPRAZOLE 40MG INJ 80 MG in 0.9%NACL 100ML 100 ML IVP SCH ×2 (08:45→17:53)
[2020-09-07] MEDS: WATER IV SCH ×3 (08:45→20:17)
[2020-09-07] MEDS: LEVETIRACETAM IV SCH ×2 (08:45→20:17)
[2020-09-07] MEDS: POTASSIUM CHLORIDE 20MEQ/100ML 100 ML IV PRN ×2 (11:48→13:00)
[2020-09-07] MEDS: METOCLOPRAMIDE 10 MG/2 ML VIAL IVP SCH ×2 (11:48→17:22)
[2020-09-07 13:53] LABS: HEMATOCRIT 27.3 % (42-54)
[2020-09-07] MEDS: MICAFUNGIN SODIUM IV SCH (14:21)
[2020-09-07] MEDS: IPRATROPIUM 0.5 MG/2.5 ML INH IH SCH (18:27)
[2020-09-07] MEDS: CLINIMIX-E 5%AA /D15%W 2000ML 2,000 ML IV SCH (19:32)
[2020-09-07] MEDS: HYDROMORPHONE 0.5 MG SYG (0.5MG/0.5ML) IVP PRN (19:49)
[2020-09-07] MEDS: FAT EMULSIONS 20% 250ML 250 ML IV SCH (20:18)
[2020-09-07] MEDS: MIDAZOLAM 100MG-0.9% NS 100ML 100 ML IV SCH (21:12)
[2020-09-08] VITALS (57 sets, daily range): BP systolic 120–144; BP diastolic 62–82
[2020-09-08] MEDS: IPRATROPIUM/ALBUTEROL SULFATE 3 ML SOLUTION IH SCH ×4 (00:06→18:13)
[2020-09-08] MEDS: METOCLOPRAMIDE 10 MG/2 ML VIAL IVP SCH ×4 (00:37→18:04)
[2020-09-08 04:59] LABS: HEMATOCRIT 26.7 % (42-54); MEAN CORPUSCULAR HEMOGLOBIN 31.2 pg (27.0-33.0); MEAN CORPUSCULAR HGB CONC 32.6 g/dL (32.0-36.0); MEAN CORPUSCULAR VOLUME 95.7 fL (79-99); RED BLOOD CELL COUNT(AUTO) 2.79 MIL/uL (4.50-6.20); RED CELL DISTRIBUTION WIDTH 15.3 % (11.0-15.5); WHITE BLOOD COUNT (AUTO) 7.8 K/uL (4.8-10.8)
[2020-09-08 05:00] LABS: ABG OXYGEN SATURATION 98.2 % (95.0-99.0); ABG PCO2 34 mmHg (35-48)
[2020-09-08] MEDS: FUROSEMIDE 20MG VIAL IV SCH ×3 (05:13→18:04)
[2020-09-08] MEDS: MEROPENEM 1 GM VIAL IVP SCH ×3 (05:15→20:51)
[2020-09-08] MEDS: METRONIDAZOLE 500MG/100ML BAG 100 ML IVPB SCH ×3 (05:15→22:44)
[2020-09-08] MEDS: PANTOPRAZOLE 40MG INJ 80 MG in 0.9%NACL 100ML 100 ML IVP SCH (05:17)
[2020-09-08 05:25] LABS: CREATININE 0.9 mg/dL (0.5-1.5); MAGNESIUM 1.9 mg/dL (1.80-2.40); POTASSIUM 3.3 mmol/L (3.5-5.1)
[2020-09-08] MEDS: INSULIN HUMULIN R 100 UNIT/ML 3ML SQ SCH ×4 (06:37→21:00)
[2020-09-08] MEDS: SUCRALFATE 1 GM TABLET PO SCH ×3 (09:00→21:00)
[2020-09-08] MEDS: DEXTROSE 5% IV SCH ×3 (09:34→20:52)
[2020-09-08] MEDS: WATER IV SCH ×3 (09:34→20:52)
[2020-09-08] MEDS: LINEZOLID 600 MG/ISO-OSM 300 ML IV SCH ×2 (09:34→20:52)
[2020-09-08] MEDS: LEVETIRACETAM IV SCH ×2 (09:34→20:52)
[2020-09-08] MEDS: POTASSIUM CHLORIDE 20MEQ/100ML 100 ML IV PRN ×2 (09:35→14:23)
[2020-09-08] MEDS ORDERED: MAGNESIUM 2GM PREMIX 50ML 50 ML IV ONE (09:38)
[2020-09-08] MEDS ORDERED: IOHEXOL 350 MG/ML 100ML INFUS..BTL IV ONE (09:58)
[2020-09-08] MEDS: HYDROMORPHONE 0.5 MG SYG (0.5MG/0.5ML) IVP PRN ×2 (11:26→18:52)
[2020-09-08] MEDS: MICAFUNGIN SODIUM IV SCH (14:23)
[2020-09-08] MEDS: CLINIMIX-E 5%AA /D15%W 2000ML 2,000 ML IV SCH (18:00)
[2020-09-08] MEDS: FAT EMULSIONS 20% 250ML 250 ML IV SCH (20:52)
[2020-09-09] VITALS (40 sets, daily range): BP systolic 122–147; BP diastolic 70–86
[2020-09-09] MEDS: HYDROMORPHONE 0.5 MG SYG (0.5MG/0.5ML) IVP PRN ×4 (00:17→16:25)
[2020-09-09] MEDS: METOCLOPRAMIDE 10 MG/2 ML VIAL IVP SCH ×5 (00:17→23:41)
[2020-09-09] MEDS: IPRATROPIUM/ALBUTEROL SULFATE 3 ML SOLUTION IH SCH ×5 (00:22→23:46)
[2020-09-09] MEDS: FUROSEMIDE 20MG VIAL IV SCH ×3 (03:09→17:58)
[2020-09-09 04:14] LABS: ABG HCO3 27.2 mmol/L (21.0-28.0); ABG OXYGEN SATURATION 98.7 % (95.0-99.0); ABG PCO2 40 mmHg (35-48)
[2020-09-09] MEDS: METRONIDAZOLE 500MG/100ML BAG 100 ML IVPB SCH ×3 (05:18→21:12)
[2020-09-09] MEDS: MEROPENEM 1 GM VIAL IVP SCH ×3 (05:18→20:12)
[2020-09-09] MEDS: INSULIN HUMULIN R 100 UNIT/ML 3ML SQ SCH ×4 (06:02→20:54)
[2020-09-09 06:41] LABS: BASOPHILS % (AUTO) 0.3 % (0.0-5.0); EOSINOPHILS % (AUTO) 1.8 % (0.0-8.0); HEMATOCRIT 25.4 % (42-54); LYMPHOCYTES % (AUTO) 11.1 % (21.0-51.0); MEAN CORPUSCULAR HEMOGLOBIN 30.9 pg (27.0-33.0); MEAN CORPUSCULAR HGB CONC 31.9 g/dL (32.0-36.0); MEAN CORPUSCULAR VOLUME 96.9 fL (79-99); MONOCYTES % (AUTO) 8.2 % (3.0-13.0); NEUTROPHILS % (AUTO) 77.4 % (40.0-77.0); PLATELET COUNT (AUTO) 320 K/uL (130-400); RED BLOOD CELL COUNT(AUTO) 2.62 MIL/uL (4.50-6.20); RED CELL DISTRIBUTION WIDTH 15.1 % (11.0-15.5); WHITE BLOOD COUNT (AUTO) 7.4 K/uL (4.8-10.8)
[2020-09-09 06:56] LABS: ALBUMIN 1.4 g/dL (3.5-5.0); BILIRUBIN,TOTAL 0.6 mg/dL (0.2-1.0); CREATININE 0.9 mg/dL (0.5-1.5); MAGNESIUM 1.9 mg/dL (1.80-2.40); PHOSPHORUS 3.7 mg/dL (2.5-4.9); POTASSIUM 3.8 mmol/L (3.5-5.1)
[2020-09-09] MEDS: LEVETIRACETAM IV SCH ×2 (08:44→20:54)
[2020-09-09] MEDS: LINEZOLID 600 MG/ISO-OSM 300 ML IV SCH ×2 (08:44→20:54)
[2020-09-09] MEDS: DEXTROSE 5% IV SCH ×2 (08:44→20:54)
[2020-09-09] MEDS: WATER IV SCH ×2 (08:44→20:54)
[2020-09-09] MEDS: SUCRALFATE 1 GM TABLET PO SCH ×3 (08:45→20:16)
[2020-09-09] MEDS: MIDAZOLAM 100MG-0.9% NS 100ML 100 ML IV SCH (14:03)
[2020-09-09] MEDS ORDERED: MAGNESIUM 2GM PREMIX 50ML 50 ML IV ONE (16:18)
[2020-09-09] MEDS: PROPOFOL 1000 MG/100 ML 100 ML IV SCH (16:22)
[2020-09-09] MEDS: POTASSIUM CHLORIDE 20MEQ/100ML 100 ML IV PRN ×2 (16:23→17:58)
[2020-09-09] MEDS ORDERED: CLINIMIX-E 5%AA /D15%W 2000ML 2,000 ML IV ONE (18:30)
[2020-09-09] MEDS ORDERED: M V I IV ONE (18:45)
[2020-09-09] MEDS ORDERED: CLINIMIX E IV ONE (18:45)
[2020-09-09] MEDS ORDERED: MVI IV ONE (18:45)
[2020-09-09] MEDS: FAT EMULSIONS 20% 250ML 250 ML IV SCH (20:54)
[2020-09-10] VITALS (55 sets, daily range): BP systolic 106–143; BP diastolic 30–82
[2020-09-10] MEDS: HYDROMORPHONE 0.5 MG SYG (0.5MG/0.5ML) IVP PRN ×3 (01:11→09:33)
[2020-09-10] MEDS: FUROSEMIDE 20MG VIAL IV SCH ×3 (02:26→17:12)
[2020-09-10] MEDS: MEROPENEM 1 GM VIAL IVP SCH ×3 (03:56→21:38)
[2020-09-10 04:20] LABS: BASOPHILS % (AUTO) 0.1 % (0.0-5.0); EOSINOPHILS % (AUTO) 1.3 % (0.0-8.0); LYMPHOCYTES % (AUTO) 10.2 % (21.0-51.0); MEAN CORPUSCULAR HEMOGLOBIN 30.9 pg (27.0-33.0); MEAN CORPUSCULAR HGB CONC 32.1 g/dL (32.0-36.0); MEAN CORPUSCULAR VOLUME 96.4 fL (79-99); MONOCYTES % (AUTO) 7.3 % (3.0-13.0); NEUTROPHILS % (AUTO) 79.7 % (40.0-77.0); PLATELET COUNT (AUTO) 323 K/uL (130-400); RED BLOOD CELL COUNT(AUTO) 2.49 MIL/uL (4.50-6.20); RED CELL DISTRIBUTION WIDTH 14.5 % (11.0-15.5); WHITE BLOOD COUNT (AUTO) 7.6 K/uL (4.8-10.8)
[2020-09-10 04:43] LABS: ALBUMIN 1.3 g/dL (3.5-5.0); BILIRUBIN,TOTAL 0.6 mg/dL (0.2-1.0); CREATININE 0.9 mg/dL (0.5-1.5); PHOSPHORUS 3.8 mg/dL (2.5-4.9); POTASSIUM 3.9 mmol/L (3.5-5.1); TOTAL PROTEIN, SERUM 6.5 g/dL (6.0-8.3)
[2020-09-10] MEDS: IPRATROPIUM/ALBUTEROL SULFATE 3 ML SOLUTION IH SCH ×3 (06:21→18:33)
[2020-09-10] MEDS: METOCLOPRAMIDE 10 MG/2 ML VIAL IVP SCH ×3 (06:25→17:12)
[2020-09-10] MEDS: METRONIDAZOLE 500MG/100ML BAG 100 ML IVPB SCH ×3 (06:25→22:18)
[2020-09-10] MEDS: INSULIN HUMULIN R 100 UNIT/ML 3ML SQ SCH ×4 (07:30→21:00)
[2020-09-10] MEDS: SUCRALFATE 1 GM TABLET PO SCH ×3 (09:00→21:00)
[2020-09-10 09:05] LABS: ABG BASE EXCESS 1.3 mmol/L (-2.0-3.0); ABG HCO3 26.9 mmol/L (21.0-28.0); ABG OXYGEN SATURATION 98.1 % (95.0-99.0); ABG PCO2 46 mmHg (35-48)
[2020-09-10] MEDS: WATER IV SCH ×2 (09:34→21:47)
[2020-09-10] MEDS: LEVETIRACETAM IV SCH ×2 (09:34→21:47)
[2020-09-10] MEDS: DEXTROSE 5% IV SCH ×2 (09:34→21:47)
[2020-09-10] MEDS: LINEZOLID 600 MG/ISO-OSM 300 ML IV SCH ×2 (09:34→22:17)
[2020-09-10] MEDS ORDERED: M.V.I. IV [ADULT] 10 ML in CLINIMIX-E4.25%AA/D5+LYT2000ML 2,000 ML IV SCH (19:00)
[2020-09-10] MEDS: PANTOPRAZOLE 40 MG/VIAL IVP SCH (21:00)
[2020-09-10] MEDS ORDERED: PHARMACY COMMUNICATION MISC SCH ×2 (21:30→21:45)
[2020-09-10] MEDS: FAT EMULSIONS 20% 250ML 250 ML IV SCH (22:17)
[2020-09-11] VITALS (24 sets, daily range): BP systolic 110–142; BP diastolic 49–75
[2020-09-11] MEDS: METOCLOPRAMIDE 10 MG/2 ML VIAL IVP SCH ×4 (00:03→17:58)
[2020-09-11] MEDS: IPRATROPIUM/ALBUTEROL SULFATE 3 ML SOLUTION IH SCH ×4 (00:42→18:10)
[2020-09-11] MEDS: FUROSEMIDE 20MG VIAL IV SCH ×3 (02:05→17:58)
[2020-09-11] MEDS: HYDROMORPHONE 0.5 MG SYG (0.5MG/0.5ML) IVP PRN ×4 (02:21→21:58)
[2020-09-11 03:23] LABS: BASOPHILS % (AUTO) 0.2 % (0.0-5.0); EOSINOPHILS % (AUTO) 0.7 % (0.0-8.0); HEMATOCRIT 23.2 % (42-54); LYMPHOCYTES % (AUTO) 9.3 % (21.0-51.0); MEAN CORPUSCULAR HEMOGLOBIN 31.7 pg (27.0-33.0); MEAN CORPUSCULAR HGB CONC 33.2 g/dL (32.0-36.0); MEAN CORPUSCULAR VOLUME 95.5 fL (79-99); MONOCYTES % (AUTO) 6.8 % (3.0-13.0); NEUTROPHILS % (AUTO) 82.3 % (40.0-77.0); PLATELET COUNT (AUTO) 344 K/uL (130-400); RED BLOOD CELL COUNT(AUTO) 2.43 MIL/uL (4.50-6.20); WHITE BLOOD COUNT (AUTO) 9.6 K/uL (4.8-10.8)
[2020-09-11 03:37] LABS: ALBUMIN 1.5 g/dL (3.5-5.0); BILIRUBIN,TOTAL 0.6 mg/dL (0.2-1.0); CREATININE 0.8 mg/dL (0.5-1.5); MAGNESIUM 1.7 mg/dL (1.80-2.40); PHOSPHORUS 4.2 mg/dL (2.5-4.9); POTASSIUM 4.1 mmol/L (3.5-5.1); TOTAL PROTEIN, SERUM 6.4 g/dL (6.0-8.3)
[2020-09-11] MEDS: METRONIDAZOLE 500MG/100ML BAG 100 ML IVPB SCH ×3 (05:06→21:22)
[2020-09-11] MEDS: MEROPENEM 1 GM VIAL IVP SCH ×3 (05:06→20:35)
[2020-09-11] MEDS: INSULIN HUMULIN R 100 UNIT/ML 3ML SQ SCH ×4 (07:30→20:36)
[2020-09-11] MEDS: SUCRALFATE 1 GM TABLET PO SCH ×3 (09:00→20:36)
[2020-09-11] MEDS ORDERED: 0.9% NACL 500ML IV.SOLN 500 ML IV ONE (09:04)
[2020-09-11] MEDS: LEVETIRACETAM IV SCH ×2 (09:06→20:35)
[2020-09-11] MEDS: DEXTROSE 5% IV SCH ×2 (09:06→20:35)
[2020-09-11] MEDS: WATER IV SCH ×2 (09:06→20:35)
[2020-09-11] MEDS: LINEZOLID 600 MG/ISO-OSM 300 ML IV SCH ×2 (09:06→21:30)
[2020-09-11] MEDS: PANTOPRAZOLE 40 MG/VIAL IVP SCH ×2 (09:06→20:35)
[2020-09-11] MEDS ORDERED: M.V.I. IV [ADULT] 10 ML in CLINIMIX-E 5%AA /D15%W 2000ML 2,000 ML IV SCH (17:00)
[2020-09-11] MEDS: FAT EMULSIONS 20% 250ML 250 ML IV SCH (20:35)
[2020-09-12] VITALS (18 sets, daily range): BP systolic 126–137; BP diastolic 64–81
[2020-09-12] MEDS: METOCLOPRAMIDE 10 MG/2 ML VIAL IVP SCH ×4 (00:07→17:32)
[2020-09-12] MEDS: IPRATROPIUM/ALBUTEROL SULFATE 3 ML SOLUTION IH SCH ×4 (00:31→18:51)
[2020-09-12] MEDS: FUROSEMIDE 20MG VIAL IV SCH ×3 (02:24→17:32)
[2020-09-12] MEDS: HYDROMORPHONE 0.5 MG SYG (0.5MG/0.5ML) IVP PRN ×3 (02:27→21:39)
[2020-09-12] MEDS: MEROPENEM 1 GM VIAL IVP SCH ×3 (05:09→21:00)
[2020-09-12] MEDS: METRONIDAZOLE 500MG/100ML BAG 100 ML IVPB SCH ×3 (05:09→22:33)
[2020-09-12] MEDS: INSULIN HUMULIN R 100 UNIT/ML 3ML SQ SCH ×4 (07:30→21:00)
[2020-09-12 08:23] LABS: HEMATOCRIT 23.3 % (42-54); MEAN CORPUSCULAR HEMOGLOBIN 30.1 pg (27.0-33.0); MEAN CORPUSCULAR HGB CONC 31.8 g/dL (32.0-36.0); MEAN CORPUSCULAR VOLUME 94.7 fL (79-99); RED BLOOD CELL COUNT(AUTO) 2.46 MIL/uL (4.50-6.20); RED CELL DISTRIBUTION WIDTH 13.4 % (11.0-15.5); WHITE BLOOD COUNT (AUTO) 7.6 K/uL (4.8-10.8)
[2020-09-12] MEDS: SUCRALFATE 1 GM TABLET PO SCH ×3 (08:27→21:47)
[2020-09-12] MEDS: WATER IV SCH ×2 (08:28→21:48)
[2020-09-12] MEDS: LEVETIRACETAM IV SCH ×2 (08:28→21:48)
[2020-09-12] MEDS: DEXTROSE 5% IV SCH ×2 (08:28→21:48)
[2020-09-12] MEDS: LINEZOLID 600 MG/ISO-OSM 300 ML IV SCH ×2 (08:28→22:21)
[2020-09-12] MEDS: PANTOPRAZOLE 40 MG/VIAL IVP SCH ×2 (08:28→21:46)
[2020-09-12 08:39] LABS: ALBUMIN 1.6 g/dL (3.5-5.0); BILIRUBIN,TOTAL 0.6 mg/dL (0.2-1.0); CREATININE 0.7 mg/dL (0.5-1.5); MAGNESIUM 1.8 mg/dL (1.80-2.40); PHOSPHORUS 3.8 mg/dL (2.5-4.9); POTASSIUM 3.8 mmol/L (3.5-5.1); TOTAL PROTEIN, SERUM 6.1 g/dL (6.0-8.3)
[2020-09-12] MEDS: POTASSIUM CHLORIDE 20MEQ/100ML 100 ML IV PRN (11:19)
[2020-09-12] MEDS: MAGNESIUM 2GM PREMIX 50ML 50 ML IV PRN (13:03)
[2020-09-12] MEDS ORDERED: M.V.I. IV [ADULT] 10 ML in CLINIMIX-E 5%AA /D15%W 2000ML 2,000 ML IV SCH (16:00)
[2020-09-12] MEDS: FAT EMULSIONS 20% 250ML 250 ML IV SCH (21:00)
[2020-09-12] MEDS: ONDANSETRON 4MG INJ IVP PRN (21:37)
[2020-09-12 22:57] LABS: HEMATOCRIT 21.2 % (42-54)
[2020-09-12 23:30] LABS: ABG BASE EXCESS 4.6 mmol/L (-2.0-3.0); ABG HCO3 29.1 mmol/L (21.0-28.0); ABG PCO2 43 mmHg (35-48)
[2020-09-12] MEDS ORDERED: 0.9% NACL 500ML IV.SOLN 500 ML IV SCH (23:30)
[2020-09-12] MEDS ORDERED: 0.9% NACL 500ML IV.SOLN 500 ML IV ONE (23:40)
[2020-09-13] VITALS (54 sets, daily range): BP systolic 119–154; BP diastolic 61–97
[2020-09-13 00:33] LABS: INR 1.01 (0.85-1.15); PARTIAL THROMBOPLASTIN TIME 23.6 SEC (26.3-35.5); PROTHROMBIN TIME 10.9 SEC (9.6-11.6)
[2020-09-13] MEDS ORDERED: ROCURONIUM 10MG/1ML SYR 10 MG/ML ML ONE (00:39)
[2020-09-13] MEDS ORDERED: PHARMACY COMMUNICATION MISC SCH (01:15)
[2020-09-13] MEDS ORDERED: 0.9% NACL 250ML 250 ML IV ONE (01:19)
[2020-09-13] MEDS: ONDANSETRON 4MG INJ IVP PRN (01:33)
[2020-09-13] MEDS ORDERED: PROPOFOL 1000 MG/100 ML IV PRN (02:00)
[2020-09-13 02:59] LABS: ABG BASE EXCESS 5.7 mmol/L (-2.0-3.0); ABG HCO3 30.2 mmol/L (21.0-28.0); ABG OXYGEN SATURATION 98.6 % (95.0-99.0); ABG PCO2 44 mmHg (35-48)
[2020-09-13] MEDS: FUROSEMIDE 20MG VIAL IV SCH ×3 (03:48→19:23)
[2020-09-13] MEDS: METOCLOPRAMIDE 10 MG/2 ML VIAL IVP SCH ×4 (03:48→19:23)
[2020-09-13] MEDS: PROPOFOL 1000 MG/100 ML 100 ML IV SCH (05:13)
[2020-09-13] MEDS: MEROPENEM 1 GM VIAL IVP SCH (05:16)
[2020-09-13] MEDS: METRONIDAZOLE 500MG/100ML BAG 100 ML IVPB SCH (05:17)
[2020-09-13] MEDS: IPRATROPIUM/ALBUTEROL SULFATE 3 ML SOLUTION IH SCH ×4 (06:00→19:12)
[2020-09-13 06:30] LABS: BASOPHILS % (AUTO) 0.2 % (0.0-5.0); EOSINOPHILS % (AUTO) 0.1 % (0.0-8.0); HEMATOCRIT 21.8 % (42-54); LYMPHOCYTES % (AUTO) 9.4 % (21.0-51.0); MEAN CORPUSCULAR HEMOGLOBIN 30.8 pg (27.0-33.0); MEAN CORPUSCULAR HGB CONC 33.5 g/dL (32.0-36.0); MONOCYTES % (AUTO) 6.8 % (3.0-13.0); NEUTROPHILS % (AUTO) 82.4 % (40.0-77.0); PLATELET COUNT (AUTO) 217 K/uL (130-400); RED BLOOD CELL COUNT(AUTO) 2.37 MIL/uL (4.50-6.20); WHITE BLOOD COUNT (AUTO) 12.8 K/uL (4.8-10.8)
[2020-09-13 06:38] LABS: ALBUMIN 1.5 g/dL (3.5-5.0); BILIRUBIN,TOTAL 0.8 mg/dL (0.2-1.0); CREATININE 0.8 mg/dL (0.5-1.5); MAGNESIUM 1.9 mg/dL (1.80-2.40); POTASSIUM 4.6 mmol/L (3.5-5.1); TOTAL PROTEIN, SERUM 5.7 g/dL (6.0-8.3)
[2020-09-13] MEDS ORDERED: EPINEPHRINE PF 1MG AMP ONE (07:22)
[2020-09-13] MEDS: INSULIN HUMULIN R 100 UNIT/ML 3ML SQ SCH ×4 (07:30→21:00)
[2020-09-13] MEDS ORDERED: MIDAZOLAM HCL 1 MG/ML 2ML VIAL ONE ×3 (07:44→08:07)
[2020-09-13] MEDS ORDERED: FENTANYL CITRATE PF 50 MCG/1 ML 2ML VIAL ONE ×2 (07:45→08:08)
[2020-09-13] MEDS: SUCRALFATE 1 GM TABLET PO SCH ×3 (08:11→19:25)
[2020-09-13] MEDS ORDERED: MIDAZOLAM HCL 1 MG/ML 2ML VIAL IV SCH (08:30)
[2020-09-13] MEDS ORDERED: FENTANYL CITRATE PF 50 MCG/1 ML 2ML VIAL IVP SCH ×2 (08:30→08:45)
[2020-09-13] MEDS: MIDAZOLAM 100MG-0.9% NS 100ML 100 ML IV SCH ×2 (09:38→19:53)
[2020-09-13] MEDS: LINEZOLID 600 MG/ISO-OSM 300 ML IV SCH (10:31)
[2020-09-13] MEDS: LEVETIRACETAM IV SCH ×2 (10:31→21:55)
[2020-09-13] MEDS: DEXTROSE 5% IV SCH ×2 (10:31→21:55)
[2020-09-13] MEDS: WATER IV SCH ×2 (10:31→21:55)
[2020-09-13] MEDS: PANTOPRAZOLE 40 MG/VIAL IVP SCH (10:32)
[2020-09-13] MEDS ORDERED: FENTANYL CITRATE PF 0.05 MG/ML 2,500 MCG in 0.9%NACL 100ML 250 ML IVPB SCH (10:45)
[2020-09-13 17:54] LABS: HEMATOCRIT 30.2 % (42-54)
[2020-09-13] MEDS ORDERED: M.V.I. IV [ADULT] 10 ML in CLINIMIX-E 5%AA /D15%W 2000ML 2,000 ML IV SCH (18:00)
[2020-09-13] MEDS: PANTOPRAZOLE 40MG INJ 80 MG in 0.9%NACL 100ML 100 ML IVP SCH (19:50)
[2020-09-13] MEDS: FAT EMULSIONS 20% 250ML 250 ML IV SCH (20:18)
[2020-09-14] VITALS (24 sets, daily range): BP systolic 114–142; BP diastolic 54–83
[2020-09-14] MEDS: IPRATROPIUM/ALBUTEROL SULFATE 3 ML SOLUTION IH SCH ×4 (00:01→18:44)
[2020-09-14] MEDS: METOCLOPRAMIDE 10 MG/2 ML VIAL IVP SCH ×5 (00:39→21:27)
[2020-09-14] MEDS: FUROSEMIDE 20MG VIAL IV SCH ×2 (02:16→10:45)
[2020-09-14 04:39] LABS: ABG BASE EXCESS 7.1 mmol/L (-2.0-3.0); ABG HCO3 32.9 mmol/L (21.0-28.0); ABG OXYGEN SATURATION 98.5 % (95.0-99.0); ABG PCO2 51 mmHg (35-48)
[2020-09-14 05:19] LABS: BASOPHILS % (AUTO) 0.3 % (0.0-5.0); EOSINOPHILS % (AUTO) 0.6 % (0.0-8.0); HEMATOCRIT 25.1 % (42-54); LYMPHOCYTES % (AUTO) 11.7 % (21.0-51.0); MEAN CORPUSCULAR HEMOGLOBIN 28.5 pg (27.0-33.0); MEAN CORPUSCULAR HGB CONC 32.7 g/dL (32.0-36.0); MEAN CORPUSCULAR VOLUME 87.2 fL (79-99); NEUTROPHILS % (AUTO) 75.9 % (40.0-77.0); NUCLEATED RED BLOOD CELLS 0.2 % (0.0-0.19); PLATELET COUNT (AUTO) 294 K/uL (130-400); RED BLOOD CELL COUNT(AUTO) 2.88 MIL/uL (4.50-6.20); RED CELL DISTRIBUTION WIDTH 19.5 % (11.0-15.5); WHITE BLOOD COUNT (AUTO) 11.5 K/uL (4.8-10.8)
[2020-09-14 05:42] LABS: ALBUMIN 1.7 g/dL (3.5-5.0); BILIRUBIN,TOTAL 0.6 mg/dL (0.2-1.0); CREATININE 0.8 mg/dL (0.5-1.5); MAGNESIUM 1.8 mg/dL (1.80-2.40); POTASSIUM 4.2 mmol/L (3.5-5.1); TOTAL PROTEIN, SERUM 6.3 g/dL (6.0-8.3)
[2020-09-14] MEDS: FENTANYL 2500MCG+NS 250ML 250 ML IV SCH ×2 (05:51→21:46)
[2020-09-14] MEDS: INSULIN HUMULIN R 100 UNIT/ML 3ML SQ SCH ×4 (06:20→21:00)
[2020-09-14] MEDS: MAGNESIUM 2GM PREMIX 50ML 50 ML IV PRN (06:24)
[2020-09-14] MEDS: PANTOPRAZOLE 40MG INJ 80 MG in 0.9%NACL 100ML 100 ML IVP SCH (06:33)
[2020-09-14] MEDS: MIDAZOLAM 100MG-0.9% NS 100ML 100 ML IV SCH (08:39)
[2020-09-14] MEDS: SUCRALFATE 1 GM TABLET PO SCH ×3 (09:00→19:11)
[2020-09-14] MEDS: WATER IV SCH ×2 (10:51→21:26)
[2020-09-14] MEDS: DEXTROSE 5% IV SCH ×2 (10:51→21:26)
[2020-09-14] MEDS: LEVETIRACETAM IV SCH ×2 (10:51→21:26)
[2020-09-14] MEDS: FUROSEMIDE 40MG VIAL IV SCH ×2 (12:29→21:26)
[2020-09-14 17:56] LABS: HEMATOCRIT 22.6 % (42-54)
[2020-09-14] MEDS ORDERED: M.V.I. IV [ADULT] 10 ML in CLINIMIX-E 5%AA /D15%W 2000ML 2,000 ML IV SCH (18:00)
[2020-09-14] MEDS: FAT EMULSIONS 20% 250ML 250 ML IV SCH (19:53)
[2020-09-15] VITALS (111 sets, daily range): BP systolic 110–177; BP diastolic 54–116
[2020-09-15] MEDS: IPRATROPIUM/ALBUTEROL SULFATE 3 ML SOLUTION IH SCH ×4 (00:34→18:43)
[2020-09-15] MEDS: METOCLOPRAMIDE 10 MG/2 ML VIAL IVP SCH ×3 (04:01→17:40)
[2020-09-15] MEDS: PANTOPRAZOLE 40MG INJ 80 MG in 0.9%NACL 100ML 100 ML IVP SCH (04:20)
[2020-09-15] MEDS: INSULIN HUMULIN R 100 UNIT/ML 3ML SQ SCH ×3 (05:30→16:30)
[2020-09-15 05:34] LABS: BASOPHILS % (AUTO) 0.2 % (0.0-5.0); EOSINOPHILS % (AUTO) 1.3 % (0.0-8.0); HEMATOCRIT 21.8 % (42-54); LYMPHOCYTES % (AUTO) 13.2 % (21.0-51.0); MEAN CORPUSCULAR HEMOGLOBIN 28.6 pg (27.0-33.0); MEAN CORPUSCULAR HGB CONC 31.2 g/dL (32.0-36.0); MEAN CORPUSCULAR VOLUME 91.6 fL (79-99); MONOCYTES % (AUTO) 9.6 % (3.0-13.0); NEUTROPHILS % (AUTO) 74.1 % (40.0-77.0); PLATELET COUNT (AUTO) 284 K/uL (130-400); RED BLOOD CELL COUNT(AUTO) 2.38 MIL/uL (4.50-6.20); RED CELL DISTRIBUTION WIDTH 18.6 % (11.0-15.5); WHITE BLOOD COUNT (AUTO) 9.2 K/uL (4.8-10.8)
[2020-09-15 05:59] LABS: ALBUMIN 1.5 g/dL (3.5-5.0); BILIRUBIN,DIRECT 0.3 mg/dL (0.0-0.3); BILIRUBIN,TOTAL 0.6 mg/dL (0.2-1.0); CREATININE 0.6 mg/dL (0.5-1.5); MAGNESIUM 1.9 mg/dL (1.80-2.40); TOTAL PROTEIN, SERUM 6.2 g/dL (6.0-8.3)
[2020-09-15] MEDS: FUROSEMIDE 40MG VIAL IV SCH ×3 (06:22→21:22)
[2020-09-15] MEDS: MAGNESIUM 2GM PREMIX 50ML 50 ML IV PRN (06:23)
[2020-09-15] MEDS: FENTANYL 2500MCG+NS 250ML 250 ML IV SCH ×2 (07:54→17:45)
[2020-09-15] MEDS: SUCRALFATE 1 GM TABLET PO SCH ×3 (09:00→21:00)
[2020-09-15] MEDS: MIDAZOLAM 100MG-0.9% NS 100ML 100 ML IV SCH (09:03)
[2020-09-15] MEDS ORDERED: EPINEPHRINE PF 1MG AMP ONE (09:12)
[2020-09-15] MEDS ORDERED: PROPOFOL 10 MG/ML 20ML VIAL IV ONE (09:21)
[2020-09-15] MEDS ORDERED: PROPOFOL 10 MG/ML 20ML VIAL IV SCH (10:15)
[2020-09-15] MEDS: WATER IV SCH ×2 (10:45→21:52)
[2020-09-15] MEDS: DEXTROSE 5% IV SCH ×2 (10:45→21:52)
[2020-09-15] MEDS: LEVETIRACETAM IV SCH ×2 (10:45→21:52)
[2020-09-15] MEDS: MEROPENEM 1 GM VIAL IVP SCH ×2 (12:45→21:21)
[2020-09-15] MEDS: HYDROMORPHONE 0.5 MG SYG (0.5MG/0.5ML) IVP PRN ×2 (12:45→21:20)
[2020-09-15] MEDS: LINEZOLID 600 MG/ISO-OSM 300 ML IV SCH (12:46)
[2020-09-15] MEDS: METRONIDAZOLE 500MG/100ML BAG 100 ML IVPB SCH ×2 (14:13→22:28)
[2020-09-15 14:34] LABS: HEMATOCRIT 23.8 % (42-54)
[2020-09-15] MEDS ORDERED: M.V.I. IV [ADULT] 10 ML in CLINIMIX-E 5%AA /D15%W 2000ML 2,000 ML IV SCH (17:00)
[2020-09-15 18:02] LABS: HEMATOCRIT 24.3 % (42-54)
[2020-09-15] MEDS ORDERED: IOHEXOL-350 75 ML VIAL IV ONE (20:37)
[2020-09-15] MEDS: FAT EMULSIONS 20% 250ML 250 ML IV SCH (21:22)
[2020-09-15] MEDS: ACETAMINOPHEN 650 MG SUPPOSITORY RC PRN (22:02)
[2020-09-16] VITALS (37 sets, daily range): BP systolic 119–187; BP diastolic 61–118
[2020-09-16] MEDS: INSULIN HUMULIN R 100 UNIT/ML 3ML SQ SCH ×5 (00:12→21:00)
[2020-09-16] MEDS: IPRATROPIUM/ALBUTEROL SULFATE 3 ML SOLUTION IH SCH ×4 (00:15→18:27)
[2020-09-16] MEDS: LINEZOLID 600 MG/ISO-OSM 300 ML IV SCH ×2 (00:19→12:21)
[2020-09-16] MEDS: HYDROMORPHONE 0.5 MG SYG (0.5MG/0.5ML) IVP PRN ×2 (02:35→12:22)
[2020-09-16] MEDS: MEROPENEM 1 GM VIAL IVP SCH ×3 (03:47→22:29)
[2020-09-16 04:22] LABS: ABG BASE EXCESS 9.9 mmol/L (-2.0-3.0); ABG OXYGEN SATURATION 99.2 % (95.0-99.0); ABG PCO2 39 mmHg (35-48)
[2020-09-16 05:00] LABS: ALBUMIN 1.7 g/dL (3.5-5.0); BILIRUBIN,TOTAL 0.7 mg/dL (0.2-1.0); CREATININE 0.7 mg/dL (0.5-1.5); MAGNESIUM 1.4 mg/dL (1.80-2.40); PHOSPHORUS 3.7 mg/dL (2.5-4.9); POTASSIUM 3.7 mmol/L (3.5-5.1); TOTAL PROTEIN, SERUM 6.6 g/dL (6.0-8.3)
[2020-09-16 05:06] LABS: BASOPHILS % (AUTO) 0.2 % (0.0-5.0); EOSINOPHILS % (AUTO) 0.4 % (0.0-8.0); HEMATOCRIT 23.2 % (42-54); LYMPHOCYTES % (AUTO) 11.3 % (21.0-51.0); MEAN CORPUSCULAR HEMOGLOBIN 28.1 pg (27.0-33.0); MEAN CORPUSCULAR HGB CONC 31.5 g/dL (32.0-36.0); MEAN CORPUSCULAR VOLUME 89.2 fL (79-99); MONOCYTES % (AUTO) 9.5 % (3.0-13.0); NEUTROPHILS % (AUTO) 77.8 % (40.0-77.0); PLATELET COUNT (AUTO) 283 K/uL (130-400); RED CELL DISTRIBUTION WIDTH 18.9 % (11.0-15.5); WHITE BLOOD COUNT (AUTO) 12.1 K/uL (4.8-10.8)
[2020-09-16] MEDS: FUROSEMIDE 40MG VIAL IV SCH ×3 (05:36→22:29)
[2020-09-16] MEDS: POTASSIUM CHLORIDE 20MEQ/100ML 100 ML IV PRN (05:39)
[2020-09-16] MEDS: FENTANYL 2500MCG+NS 250ML 250 ML IV SCH ×2 (05:49→23:53)
[2020-09-16] MEDS: METRONIDAZOLE 500MG/100ML BAG 100 ML IVPB SCH ×3 (05:49→22:49)
[2020-09-16] MEDS: METOCLOPRAMIDE 10 MG/2 ML VIAL IVP SCH ×5 (06:00→23:56)
[2020-09-16] MEDS: PANTOPRAZOLE 40MG INJ 80 MG in 0.9%NACL 100ML 100 ML IVP SCH (06:36)
[2020-09-16] MEDS: ACETAMINOPHEN 650 MG SUPPOSITORY RC PRN (06:41)
[2020-09-16] MEDS: LEVETIRACETAM IV SCH ×2 (08:05→22:30)
[2020-09-16] MEDS: WATER IV SCH ×2 (08:05→22:30)
[2020-09-16] MEDS: DEXTROSE 5% IV SCH ×2 (08:05→22:30)
[2020-09-16] MEDS: SUCRALFATE 1 GM TABLET PO SCH ×3 (08:10→21:00)
[2020-09-16] MEDS: FLUCONAZOLE 400 MG/NS 200 ML 200 ML IV SCH (10:07)
[2020-09-16 10:44] LABS: ABG HCO3 35.5 mmol/L (21.0-28.0); ABG OXYGEN SATURATION 98.5 % (95.0-99.0); ABG PCO2 51 mmHg (35-48)
[2020-09-16] MEDS: MIDAZOLAM 100MG-0.9% NS 100ML 100 ML IV SCH (13:38)
[2020-09-16] MEDS: BALSAM PERU/CASTOR OIL 60 GM TUBE TP SCH ×2 (15:12→22:30)
[2020-09-16 18:28] LABS: HEMATOCRIT 23.7 % (42-54)
[2020-09-16] MEDS: FAT EMULSIONS 20% 250ML 250 ML IV SCH (22:30)
[2020-09-16] MEDS: M.V.I. IV [ADULT] 10 ML in CLINIMIX 5%AA/D15W 2000ML 2,000 ML IV NR (23:52)
[2020-09-17] VITALS (48 sets, daily range): BP systolic 118–163; BP diastolic 57–102
[2020-09-17 00:33] LABS: HEMATOCRIT 23.9 % (42-54)
[2020-09-17] MEDS: LINEZOLID 600 MG/ISO-OSM 300 ML IV SCH ×3 (02:18→23:54)
[2020-09-17] MEDS: IPRATROPIUM/ALBUTEROL SULFATE 3 ML SOLUTION IH SCH ×5 (02:36→23:13)
[2020-09-17 05:25] LABS: HEMATOCRIT 21.4 % (42-54); MEAN CORPUSCULAR HGB CONC 31.3 g/dL (32.0-36.0); MEAN CORPUSCULAR VOLUME 89.5 fL (79-99); RED BLOOD CELL COUNT(AUTO) 2.39 MIL/uL (4.50-6.20); RED CELL DISTRIBUTION WIDTH 17.6 % (11.0-15.5); WHITE BLOOD COUNT (AUTO) 9.9 K/uL (4.8-10.8)
[2020-09-17 05:38] LABS: CREATININE 0.6 mg/dL (0.5-1.5); MAGNESIUM 1.6 mg/dL (1.80-2.40); PHOSPHORUS 3.2 mg/dL (2.5-4.9); POTASSIUM 3.2 mmol/L (3.5-5.1)
[2020-09-17] MEDS: MEROPENEM 1 GM VIAL IVP SCH ×3 (05:41→21:41)
[2020-09-17] MEDS: FUROSEMIDE 40MG VIAL IV SCH ×3 (05:42→21:43)
[2020-09-17] MEDS: POTASSIUM CHLORIDE 20MEQ/100ML 100 ML IV PRN ×4 (05:43→15:11)
[2020-09-17] MEDS: MIDAZOLAM 100MG-0.9% NS 100ML 100 ML IV SCH (05:59)
[2020-09-17] MEDS: METRONIDAZOLE 500MG/100ML BAG 100 ML IVPB SCH ×3 (06:00→22:19)
[2020-09-17] MEDS: INSULIN HUMULIN R 100 UNIT/ML 3ML SQ SCH ×4 (06:00→16:30)
[2020-09-17] MEDS: METOCLOPRAMIDE 10 MG/2 ML VIAL IVP SCH ×4 (06:22→23:54)
[2020-09-17] MEDS: PANTOPRAZOLE 40MG INJ 80 MG in 0.9%NACL 100ML 100 ML IVP SCH ×2 (06:58→18:15)
[2020-09-17] MEDS: BALSAM PERU/CASTOR OIL 60 GM TUBE TP SCH ×3 (08:28→21:52)
[2020-09-17] MEDS: FLUCONAZOLE 400 MG/NS 200 ML 200 ML IV SCH (08:28)
[2020-09-17] MEDS: SUCRALFATE 1 GM TABLET PO SCH ×3 (09:00→21:00)
[2020-09-17] MEDS: FAT EMULSIONS 20% 250ML 250 ML IV SCH (09:09)
[2020-09-17] MEDS: DEXTROSE 5% IV SCH ×2 (09:09→21:51)
[2020-09-17] MEDS: WATER IV SCH ×2 (09:09→21:51)
[2020-09-17] MEDS: LEVETIRACETAM IV SCH ×2 (09:09→21:51)
[2020-09-17] MEDS: MAGNESIUM 2GM PREMIX 50ML 50 ML IV PRN (09:10)
[2020-09-17] MEDS: ACETAMINOPHEN 650 MG SUPPOSITORY RC PRN (10:34)
[2020-09-17] MEDS: HYDROMORPHONE 0.5 MG SYG (0.5MG/0.5ML) IVP PRN ×2 (10:42→15:02)
[2020-09-17 13:24] LABS: HEMATOCRIT 30.3 % (42-54)
[2020-09-17 19:00] LABS: HEMATOCRIT 31.4 % (42-54)
[2020-09-17] MEDS: M.V.I. IV [ADULT] 10 ML in CLINIMIX 5%AA/D15W 2000ML 2,000 ML IV NR (23:47)
[2020-09-18] VITALS (25 sets, daily range): BP systolic 113–173; BP diastolic 48–108
[2020-09-18 00:05] LABS: HEMATOCRIT 28.1 % (42-54)
[2020-09-18] MEDS: PANTOPRAZOLE 40MG INJ 80 MG in 0.9%NACL 100ML 100 ML IVP SCH ×2 (03:54→16:09)
[2020-09-18] MEDS: MEROPENEM 1 GM VIAL IVP SCH ×3 (04:49→21:10)
[2020-09-18] MEDS: FUROSEMIDE 40MG VIAL IV SCH ×3 (04:49→21:11)
[2020-09-18] MEDS: INSULIN HUMULIN R 100 UNIT/ML 3ML SQ SCH ×4 (05:43→21:00)
[2020-09-18] MEDS: METOCLOPRAMIDE 10 MG/2 ML VIAL IVP SCH ×3 (05:43→18:00)
[2020-09-18] MEDS: METRONIDAZOLE 500MG/100ML BAG 100 ML IVPB SCH ×3 (05:43→22:08)
[2020-09-18 06:13] LABS: HEMATOCRIT 26.5 % (42-54); MEAN CORPUSCULAR HEMOGLOBIN 28.2 pg (27.0-33.0); MEAN CORPUSCULAR HGB CONC 32.1 g/dL (32.0-36.0); RED BLOOD CELL COUNT(AUTO) 3.01 MIL/uL (4.50-6.20); RED CELL DISTRIBUTION WIDTH 16.8 % (11.0-15.5); WHITE BLOOD COUNT (AUTO) 8.8 K/uL (4.8-10.8)
[2020-09-18] MEDS: MIDAZOLAM 100MG-0.9% NS 100ML 100 ML IV SCH (06:21)
[2020-09-18 06:32] LABS: ALBUMIN 1.6 g/dL (3.5-5.0); BILIRUBIN,TOTAL 0.6 mg/dL (0.2-1.0); CREATININE 0.6 mg/dL (0.5-1.5); MAGNESIUM 1.6 mg/dL (1.80-2.40); PHOSPHORUS 3.5 mg/dL (2.5-4.9); POTASSIUM 3.6 mmol/L (3.5-5.1); TOTAL PROTEIN, SERUM 6.6 g/dL (6.0-8.3)
[2020-09-18] MEDS: IPRATROPIUM/ALBUTEROL SULFATE 3 ML SOLUTION IH SCH ×3 (06:56→18:47)
[2020-09-18] MEDS: MAGNESIUM 2GM PREMIX 50ML 50 ML IV PRN (07:14)
[2020-09-18] MEDS: POTASSIUM CHLORIDE 20MEQ/100ML 100 ML IV PRN (08:00)
[2020-09-18] MEDS: DEXTROSE 5% IV SCH ×2 (08:00→21:15)
[2020-09-18] MEDS: WATER IV SCH ×2 (08:00→21:15)
[2020-09-18] MEDS: LEVETIRACETAM IV SCH ×2 (08:00→21:15)
[2020-09-18] MEDS: FLUCONAZOLE 400 MG/NS 200 ML 200 ML IV SCH (08:00)
[2020-09-18] MEDS: BALSAM PERU/CASTOR OIL 60 GM TUBE TP SCH ×3 (08:01→21:12)
[2020-09-18] MEDS ORDERED: 0.9%NACL 100ML 100 ML IV ONE (08:08)
[2020-09-18] MEDS: FAT EMULSIONS 20% 250ML 250 ML IV SCH ×2 (08:58→09:04)
[2020-09-18] MEDS: SUCRALFATE 1 GM TABLET PO SCH ×3 (09:00→21:00)
[2020-09-18] MEDS: HYDROMORPHONE 0.5 MG SYG (0.5MG/0.5ML) IVP PRN (10:17)
[2020-09-18] MEDS: ACETAMINOPHEN 650 MG SUPPOSITORY RC PRN (10:18)
[2020-09-18] MEDS: LINEZOLID 600 MG/ISO-OSM 300 ML IV SCH (13:35)
[2020-09-18] MEDS ORDERED: [UNRECOGNIZED DRUG - NUTRITION] IV NR (21:00)
[2020-09-18] MEDS ORDERED: [UNRECOGNIZED DRUG - NUTRITION] IV SCH (21:00)
[2020-09-19] VITALS (21 sets, daily range): BP systolic 113–152; BP diastolic 59–83
[2020-09-19] MEDS: LINEZOLID 600 MG/ISO-OSM 300 ML IV SCH ×2 (00:59→12:58)
[2020-09-19] MEDS: METOCLOPRAMIDE 10 MG/2 ML VIAL IVP SCH ×4 (00:59→17:23)
[2020-09-19] MEDS: IPRATROPIUM/ALBUTEROL SULFATE 3 ML SOLUTION IH SCH ×5 (02:22→23:54)
[2020-09-19 03:57] LABS: BASOPHILS % (AUTO) 0.3 % (0.0-5.0); EOSINOPHILS % (AUTO) 1.7 % (0.0-8.0); HEMATOCRIT 24.6 % (42-54); LYMPHOCYTES % (AUTO) 12.7 % (21.0-51.0); MEAN CORPUSCULAR HEMOGLOBIN 27.7 pg (27.0-33.0); MEAN CORPUSCULAR HGB CONC 31.3 g/dL (32.0-36.0); MEAN CORPUSCULAR VOLUME 88.5 fL (79-99); MONOCYTES % (AUTO) 7.9 % (3.0-13.0); NEUTROPHILS % (AUTO) 76.2 % (40.0-77.0); PLATELET COUNT (AUTO) 358 K/uL (130-400); RED BLOOD CELL COUNT(AUTO) 2.78 MIL/uL (4.50-6.20); RED CELL DISTRIBUTION WIDTH 16.4 % (11.0-15.5); WHITE BLOOD COUNT (AUTO) 7.7 K/uL (4.8-10.8)
[2020-09-19 04:13] LABS: ALBUMIN 1.6 g/dL (3.5-5.0); BILIRUBIN,TOTAL 0.5 mg/dL (0.2-1.0); CREATININE 0.7 mg/dL (0.5-1.5); MAGNESIUM 1.5 mg/dL (1.80-2.40); PHOSPHORUS 3.7 mg/dL (2.5-4.9); POTASSIUM 3.7 mmol/L (3.5-5.1); TOTAL PROTEIN, SERUM 6.5 g/dL (6.0-8.3)
[2020-09-19] MEDS: MEROPENEM 1 GM VIAL IVP SCH ×3 (04:57→20:30)
[2020-09-19] MEDS: FUROSEMIDE 40MG VIAL IV SCH ×3 (04:57→20:47)
[2020-09-19] MEDS: METRONIDAZOLE 500MG/100ML BAG 100 ML IVPB SCH ×3 (05:07→21:44)
[2020-09-19] MEDS: INSULIN HUMULIN R 100 UNIT/ML 3ML SQ SCH ×4 (05:09→20:48)
[2020-09-19] MEDS: SUCRALFATE 1 GM TABLET PO SCH ×3 (10:00→20:48)
[2020-09-19] MEDS: FAT EMULSIONS 20% 250ML 250 ML IV SCH (11:08)
[2020-09-19] MEDS: FLUCONAZOLE 400 MG/NS 200 ML 200 ML IV SCH (11:09)
[2020-09-19] MEDS: BALSAM PERU/CASTOR OIL 60 GM TUBE TP SCH ×3 (11:09→20:48)
[2020-09-19] MEDS: WATER IV SCH ×2 (11:10→20:47)
[2020-09-19] MEDS: LEVETIRACETAM IV SCH ×2 (11:10→20:47)
[2020-09-19] MEDS: DEXTROSE 5% IV SCH ×2 (11:10→20:47)
[2020-09-19] MEDS: MIDAZOLAM 100MG-0.9% NS 100ML 100 ML IV SCH (13:52)
[2020-09-19] MEDS: FENTANYL 2500MCG+NS 250ML 250 ML IV SCH (16:26)
[2020-09-19] MEDS: PANTOPRAZOLE 40MG INJ 80 MG in 0.9%NACL 100ML 100 ML IVP SCH (16:27)
[2020-09-19] MEDS: HYDROMORPHONE 0.5 MG SYG (0.5MG/0.5ML) IVP PRN ×2 (17:23→21:47)
[2020-09-19] MEDS: MAGNESIUM 2GM PREMIX 50ML 50 ML IV PRN (18:54)
[2020-09-19] MEDS: FAMOTIDINE 20MG VIAL IV SCH (20:47)
[2020-09-20] VITALS (23 sets, daily range): BP systolic 103–137; BP diastolic 50–91
[2020-09-20] MEDS: FUROSEMIDE 40MG VIAL IV SCH ×3 (04:13→20:47)
[2020-09-20] MEDS: MEROPENEM 1 GM VIAL IVP SCH ×3 (04:14→20:47)
[2020-09-20] MEDS: IPRATROPIUM/ALBUTEROL SULFATE 3 ML SOLUTION IH SCH ×4 (06:12→23:20)
[2020-09-20] MEDS: METOCLOPRAMIDE 10 MG/2 ML VIAL IVP SCH ×4 (06:16→17:29)
[2020-09-20] MEDS: METRONIDAZOLE 500MG/100ML BAG 100 ML IVPB SCH ×3 (06:16→21:40)
[2020-09-20] MEDS: INSULIN HUMULIN R 100 UNIT/ML 3ML SQ SCH ×4 (06:58→21:00)
[2020-09-20] MEDS: SUCRALFATE 1 GM TABLET PO SCH ×4 (08:19→21:00)
[2020-09-20] MEDS: WATER IV SCH ×2 (08:19→20:47)
[2020-09-20] MEDS: LEVETIRACETAM IV SCH ×2 (08:19→20:47)
[2020-09-20] MEDS: FAMOTIDINE 20MG VIAL IV SCH ×2 (08:19→20:47)
[2020-09-20] MEDS: DEXTROSE 5% IV SCH ×2 (08:19→20:47)
[2020-09-20] MEDS: BALSAM PERU/CASTOR OIL 60 GM TUBE TP SCH ×2 (08:20→14:00)
[2020-09-20] MEDS: FLUCONAZOLE 400 MG/NS 200 ML 200 ML IV SCH (08:20)
[2020-09-20 08:32] LABS: HEMATOCRIT 22.5 % (42-54); MEAN CORPUSCULAR HGB CONC 31.6 g/dL (32.0-36.0); MEAN CORPUSCULAR VOLUME 88.6 fL (79-99); RED BLOOD CELL COUNT(AUTO) 2.54 MIL/uL (4.50-6.20); RED CELL DISTRIBUTION WIDTH 16.6 % (11.0-15.5); WHITE BLOOD COUNT (AUTO) 8.3 K/uL (4.8-10.8)
[2020-09-20 08:42] LABS: CREATININE 0.7 mg/dL (0.5-1.5); POTASSIUM 4.4 mmol/L (3.5-5.1)
[2020-09-20] MEDS: HYDROMORPHONE 0.5 MG SYG (0.5MG/0.5ML) IVP PRN ×2 (09:33→17:29)
[2020-09-20] MEDS: LINEZOLID 600 MG/ISO-OSM 300 ML IV SCH ×2 (12:24)
[2020-09-20] MEDS: FAT EMULSIONS 20% 250ML 250 ML IV SCH (12:25)
[2020-09-20] MEDS ORDERED: M.V.I. IV [ADULT] 10 ML in CLINIMIX-E 5%AA /D15%W 2000ML 2,000 ML IV SCH (13:15)
[2020-09-20] MEDS: PANTOPRAZOLE 40 MG/VIAL IVP SCH (20:48)
[2020-09-20] MEDS ORDERED: FAT EMULSIONS 20% 250ML 250 ML IV SCH (21:00)
[2020-09-20 23:13] LABS: HEMATOCRIT 26.8 % (42-54)
[2020-09-21] VITALS (14 sets, daily range): BP systolic 114–150; BP diastolic 51–76
[2020-09-21] MEDS ORDERED: ACETAMINOPHEN 650 MG SUPPOSITORY RC ONE (00:05)
[2020-09-21] MEDS: LINEZOLID 600 MG/ISO-OSM 300 ML IV SCH ×2 (00:06→11:05)
[2020-09-21] MEDS: BALSAM PERU/CASTOR OIL 60 GM TUBE TP SCH ×4 (00:07→23:20)
[2020-09-21] MEDS: HYDROMORPHONE 0.5 MG SYG (0.5MG/0.5ML) IVP PRN ×5 (00:30→23:33)
[2020-09-21] MEDS ORDERED: ONDANSETRON 4MG INJ ONE (03:16)
[2020-09-21] MEDS: FUROSEMIDE 40MG VIAL IV SCH (04:20)
[2020-09-21] MEDS: MEROPENEM 1 GM VIAL IVP SCH ×3 (04:20→21:11)
[2020-09-21 05:53] LABS: HEMATOCRIT 26.7 % (42-54); MEAN CORPUSCULAR HEMOGLOBIN 27.8 pg (27.0-33.0); MEAN CORPUSCULAR HGB CONC 31.8 g/dL (32.0-36.0); MEAN CORPUSCULAR VOLUME 87.3 fL (79-99); RED BLOOD CELL COUNT(AUTO) 3.06 MIL/uL (4.50-6.20); RED CELL DISTRIBUTION WIDTH 16.6 % (11.0-15.5); WHITE BLOOD COUNT (AUTO) 8.3 K/uL (4.8-10.8)
[2020-09-21 06:13] LABS: CREATININE 0.7 mg/dL (0.5-1.5); POTASSIUM 3.5 mmol/L (3.5-5.1)
[2020-09-21] MEDS: INSULIN HUMULIN R 100 UNIT/ML 3ML SQ SCH ×3 (06:40→16:06)
[2020-09-21] MEDS: METOCLOPRAMIDE 10 MG/2 ML VIAL IVP SCH ×4 (06:43→16:06)
[2020-09-21] MEDS: METRONIDAZOLE 500MG/100ML BAG 100 ML IVPB SCH ×3 (06:43→22:38)
[2020-09-21] MEDS: POTASSIUM CHLORIDE 20MEQ/100ML 100 ML IV PRN (06:44)
[2020-09-21] MEDS: IPRATROPIUM/ALBUTEROL SULFATE 3 ML SOLUTION IH SCH ×4 (06:44→23:43)
[2020-09-21] MEDS: LEVETIRACETAM IV SCH ×2 (08:45→23:12)
[2020-09-21] MEDS: MAGNESIUM 2GM PREMIX 50ML 50 ML IV PRN (08:45)
[2020-09-21] MEDS: PANTOPRAZOLE 40 MG/VIAL IVP SCH ×2 (08:45→23:12)
[2020-09-21] MEDS: WATER IV SCH ×2 (08:45→23:12)
[2020-09-21] MEDS: DEXTROSE 5% IV SCH ×2 (08:45→23:12)
[2020-09-21] MEDS: FAMOTIDINE 20MG VIAL IV SCH ×2 (08:45→21:11)
[2020-09-21] MEDS: FLUCONAZOLE 400 MG/NS 200 ML 200 ML IV SCH (08:45)
[2020-09-21] MEDS: SUCRALFATE 1 GM TABLET PO SCH ×3 (08:46→21:00)
[2020-09-21] MEDS: FAT EMULSIONS 20% 250ML 250 ML IV SCH (09:20)
[2020-09-21] MEDS: ONDANSETRON 4MG INJ IVP PRN ×3 (11:23→23:33)
[2020-09-21] MEDS: FUROSEMIDE 20MG VIAL IV SCH ×2 (14:19→22:41)
[2020-09-21] MEDS: M.V.I. IV [ADULT] 10 ML in CLINIMIX-E4.25%AA/D5+LYT2000ML 2,000 ML IV NR (14:23)
[2020-09-21] MEDS ORDERED: 0.9% NACL 250ML 250 ML IV ONE (22:42)
[2020-09-21] MEDS ORDERED: PANTOPRAZOLE 40 MG/VIAL ONE (23:04)
[2020-09-22] VITALS: BP 134/73
[2020-09-22] MEDS: METOCLOPRAMIDE 10 MG/2 ML VIAL IVP SCH ×5 (00:14→23:27)
[2020-09-22] MEDS: LINEZOLID 600 MG/ISO-OSM 300 ML IV SCH ×3 (00:14→23:26)
[2020-09-22 04:00] VITALS: BP 138/69
[2020-09-22] MEDS: MEROPENEM 1 GM VIAL IVP SCH ×3 (05:27→20:20)
[2020-09-22] MEDS: METRONIDAZOLE 500MG/100ML BAG 100 ML IVPB SCH ×3 (05:28→22:05)
[2020-09-22] MEDS: HYDROMORPHONE 0.5 MG SYG (0.5MG/0.5ML) IVP PRN ×3 (05:28→18:30)
[2020-09-22] MEDS: FUROSEMIDE 20MG VIAL IV SCH ×3 (05:28→22:05)
[2020-09-22] MEDS: INSULIN HUMULIN R 100 UNIT/ML 3ML SQ SCH ×5 (06:00→23:27)
[2020-09-22 06:14] LABS: HEMATOCRIT 27.5 % (42-54); MEAN CORPUSCULAR HEMOGLOBIN 27.4 pg (27.0-33.0); MEAN CORPUSCULAR HGB CONC 31.3 g/dL (32.0-36.0); MEAN CORPUSCULAR VOLUME 87.6 fL (79-99); RED BLOOD CELL COUNT(AUTO) 3.14 MIL/uL (4.50-6.20); RED CELL DISTRIBUTION WIDTH 16.3 % (11.0-15.5)
[2020-09-22 06:22] LABS: CREATININE 0.8 mg/dL (0.5-1.5); MAGNESIUM 1.9 mg/dL (1.80-2.40); POTASSIUM 3.8 mmol/L (3.5-5.1)
[2020-09-22] MEDS: IPRATROPIUM/ALBUTEROL SULFATE 3 ML SOLUTION IH SCH ×3 (06:54→18:31)
[2020-09-22 07:00] VITALS: BP 117/63
[2020-09-22] MEDS: SUCRALFATE 1 GM TABLET PO SCH ×2 (09:00→20:25)
[2020-09-22 11:00] VITALS: BP 115/49
[2020-09-22] MEDS: PANTOPRAZOLE 40 MG/VIAL IVP SCH ×2 (11:30→20:20)
[2020-09-22] MEDS: FAMOTIDINE 20MG VIAL IV SCH ×2 (11:31→20:20)
[2020-09-22] MEDS: FAT EMULSIONS 20% 250ML 250 ML IV SCH (11:31)
[2020-09-22] MEDS: FLUCONAZOLE 400 MG/NS 200 ML 200 ML IV SCH (11:31)
[2020-09-22] MEDS: M.V.I. IV [ADULT] 10 ML in CLINIMIX-E4.25%AA/D5+LYT2000ML 2,000 ML IV NR (11:34)
[2020-09-22] MEDS: BALSAM PERU/CASTOR OIL 60 GM TUBE TP SCH ×2 (11:35→20:27)
[2020-09-22 16:00] VITALS: BP 132/75
[2020-09-22] MEDS: PHARMACY COMMUNICATION MISC SCH (17:15)
[2020-09-22 20:00] VITALS: BP 129/69
[2020-09-23] VITALS (7 sets, daily range): BP systolic 121–144; BP diastolic 67–81
[2020-09-23] MEDS: IPRATROPIUM/ALBUTEROL SULFATE 3 ML SOLUTION IH SCH ×4 (00:04→18:26)
[2020-09-23] MEDS: PHARMACY COMMUNICATION MISC SCH ×3 (00:23→17:15)
[2020-09-23] MEDS: HYDROMORPHONE 0.5 MG SYG (0.5MG/0.5ML) IVP PRN ×5 (00:48→23:34)
[2020-09-23] MEDS: MEROPENEM 1 GM VIAL IVP SCH ×2 (03:24→12:57)
[2020-09-23] MEDS: METOCLOPRAMIDE 10 MG/2 ML VIAL IVP SCH ×4 (05:46→23:34)
[2020-09-23] MEDS: METRONIDAZOLE 500MG/100ML BAG 100 ML IVPB SCH ×2 (05:46→14:58)
[2020-09-23] MEDS: FUROSEMIDE 20MG VIAL IV SCH ×3 (05:49→20:18)
[2020-09-23 05:59] LABS: MEAN CORPUSCULAR HEMOGLOBIN 27.4 pg (27.0-33.0); MEAN CORPUSCULAR HGB CONC 31.1 g/dL (32.0-36.0); MEAN CORPUSCULAR VOLUME 87.9 fL (79-99); RED BLOOD CELL COUNT(AUTO) 3.07 MIL/uL (4.50-6.20); RED CELL DISTRIBUTION WIDTH 15.9 % (11.0-15.5); WHITE BLOOD COUNT (AUTO) 6.5 K/uL (4.8-10.8)
[2020-09-23] MEDS: INSULIN HUMULIN R 100 UNIT/ML 3ML SQ SCH ×4 (06:00→18:00)
[2020-09-23 06:04] LABS: CREATININE 0.6 mg/dL (0.5-1.5); MAGNESIUM 1.8 mg/dL (1.80-2.40)
[2020-09-23] MEDS: SUCRALFATE 1 GM TABLET PO SCH ×3 (08:28→20:18)
[2020-09-23] MEDS: PANTOPRAZOLE 40 MG/VIAL IVP SCH ×2 (08:32→21:00)
[2020-09-23] MEDS: FAMOTIDINE 20MG VIAL IV SCH ×2 (08:34→20:17)
[2020-09-23] MEDS: BALSAM PERU/CASTOR OIL 60 GM TUBE TP SCH ×3 (12:11→20:18)
[2020-09-23] MEDS: M.V.I. IV [ADULT] 10 ML in CLINIMIX-E4.25%AA/D5+LYT2000ML 2,000 ML IV NR (12:12)
[2020-09-23] MEDS: FAT EMULSIONS 20% 250ML 250 ML IV SCH (12:12)
[2020-09-23] MEDS: LINEZOLID 600 MG/ISO-OSM 300 ML IV SCH (12:13)
[2020-09-23] MEDS: FLUCONAZOLE 400 MG/NS 200 ML 200 ML IV SCH (12:13)
[2020-09-24] MEDS: PHARMACY COMMUNICATION MISC SCH ×3 (01:15→17:15)
[2020-09-24 04:30] VITALS: BP 132/60
[2020-09-24] MEDS: INSULIN HUMULIN R 100 UNIT/ML 3ML SQ SCH ×4 (06:00→18:00)
[2020-09-24] MEDS: IPRATROPIUM/ALBUTEROL SULFATE 3 ML SOLUTION IH SCH ×4 (06:16→18:22)
[2020-09-24] MEDS: METOCLOPRAMIDE 10 MG/2 ML VIAL IVP SCH ×3 (06:18→18:08)
[2020-09-24] MEDS: FUROSEMIDE 20MG VIAL IV SCH ×3 (06:19→22:01)
[2020-09-24] MEDS: SUCRALFATE 1 GM TABLET PO SCH ×3 (08:28→20:16)
[2020-09-24] MEDS: BALSAM PERU/CASTOR OIL 60 GM TUBE TP SCH ×3 (09:00→22:01)
[2020-09-24] MEDS: PANTOPRAZOLE 40 MG/VIAL IVP SCH ×2 (09:00→20:15)
[2020-09-24 09:09] VITALS: BP 120/68
[2020-09-24] MEDS: FAMOTIDINE 20MG VIAL IV SCH ×2 (09:12→22:01)
[2020-09-24] MEDS: HYDROMORPHONE 0.5 MG SYG (0.5MG/0.5ML) IVP PRN ×2 (10:02→15:38)
[2020-09-24] MEDS: FAT EMULSIONS 20% 250ML 250 ML IV SCH (10:03)
[2020-09-24 12:13] VITALS: BP 140/71
[2020-09-24 16:00] VITALS: BP 129/75
[2020-09-24 19:36] VITALS: BP 115/53
[2020-09-24 23:45] VITALS: BP 121/68
[2020-09-25] MEDS: IPRATROPIUM/ALBUTEROL SULFATE 3 ML SOLUTION IH SCH ×4 (00:17→18:38)
[2020-09-25] MEDS: PHARMACY COMMUNICATION MISC SCH ×3 (01:15→17:03)
[2020-09-25 03:49] VITALS: BP 132/74
[2020-09-25] MEDS: METOCLOPRAMIDE 10 MG/2 ML VIAL IVP SCH ×5 (05:33→23:28)
[2020-09-25] MEDS: HYDROMORPHONE 0.5 MG SYG (0.5MG/0.5ML) IVP PRN ×4 (05:33→22:27)
[2020-09-25] MEDS: FUROSEMIDE 20MG VIAL IV SCH ×3 (05:33→22:27)
[2020-09-25 05:52] LABS: BASOPHILS % (AUTO) 0.4 % (0.0-5.0); EOSINOPHILS % (AUTO) 0.5 % (0.0-8.0); HEMATOCRIT 30.4 % (42-54); MEAN CORPUSCULAR HEMOGLOBIN 27.7 pg (27.0-33.0); MEAN CORPUSCULAR HGB CONC 31.9 g/dL (32.0-36.0); MEAN CORPUSCULAR VOLUME 86.9 fL (79-99); MONOCYTES % (AUTO) 8.5 % (3.0-13.0); NEUTROPHILS % (AUTO) 68.2 % (40.0-77.0); PLATELET COUNT (AUTO) 526 K/uL (130-400); RED CELL DISTRIBUTION WIDTH 16.4 % (11.0-15.5); WHITE BLOOD COUNT (AUTO) 7.8 K/uL (4.8-10.8)
[2020-09-25] MEDS: INSULIN HUMULIN R 100 UNIT/ML 3ML SQ SCH ×4 (06:00→17:04)
[2020-09-25 06:17] LABS: ALBUMIN 2.3 g/dL (3.5-5.0); BILIRUBIN,TOTAL 0.6 mg/dL (0.2-1.0); CREATININE 0.6 mg/dL (0.5-1.5); PHOSPHORUS 5.5 mg/dL (2.5-4.9); TOTAL PROTEIN, SERUM 7.6 g/dL (6.0-8.3)
[2020-09-25 08:00] VITALS: BP 110/70
[2020-09-25] MEDS: SUCRALFATE 1 GM TABLET PO SCH ×3 (09:00→19:52)
[2020-09-25] MEDS ORDERED: CLINIMIX-E4.25%AA/D5+LYT2000ML 2,000 ML IV NR (09:00)
[2020-09-25] MEDS: PANTOPRAZOLE 40 MG/VIAL IVP SCH ×2 (09:00→22:27)
[2020-09-25] MEDS ORDERED: CLINIMIX-E4.25%AA/D5+LYT2000ML 2,000 ML IV SCH (10:00)
[2020-09-25] MEDS: FAMOTIDINE 20MG VIAL IV SCH ×2 (10:43→22:27)
[2020-09-25] MEDS: BALSAM PERU/CASTOR OIL 60 GM TUBE TP SCH ×3 (10:59→22:27)
[2020-09-25 12:02] VITALS: BP 117/69
[2020-09-25] MEDS: FAT EMULSIONS 20% 250ML 250 ML IV SCH (13:47)
[2020-09-25 16:08] VITALS: BP 110/61
[2020-09-25 20:20] VITALS: BP 127/75
[2020-09-26] VITALS (7 sets, daily range): BP systolic 118–141; BP diastolic 59–82
[2020-09-26] MEDS: IPRATROPIUM/ALBUTEROL SULFATE 3 ML SOLUTION IH SCH ×5 (00:11→23:43)
[2020-09-26] MEDS: PHARMACY COMMUNICATION MISC SCH ×3 (00:11→17:15)
[2020-09-26] MEDS: HYDROMORPHONE 0.5 MG SYG (0.5MG/0.5ML) IVP PRN ×4 (04:21→22:50)
[2020-09-26] MEDS: INSULIN HUMULIN R 100 UNIT/ML 3ML SQ SCH ×4 (06:00→18:00)
[2020-09-26] MEDS: METOCLOPRAMIDE 10 MG/2 ML VIAL IVP SCH ×3 (06:26→17:43)
[2020-09-26] MEDS: FUROSEMIDE 20MG VIAL IV SCH ×3 (06:26→21:10)
[2020-09-26] MEDS: SUCRALFATE 1 GM TABLET PO SCH ×3 (09:00→21:00)
[2020-09-26] MEDS: BALSAM PERU/CASTOR OIL 60 GM TUBE TP SCH ×3 (09:00→21:10)
[2020-09-26] MEDS: PANTOPRAZOLE 40 MG/VIAL IVP SCH ×2 (09:00→21:10)
[2020-09-26] MEDS: FAMOTIDINE 20MG VIAL IV SCH ×2 (12:51→21:00)
[2020-09-26] MEDS: FAT EMULSIONS 20% 250ML 250 ML IV SCH (12:52)
[2020-09-26] MEDS ORDERED: CLINIMIX-E4.25%AA/D5+LYT2000ML 2,000 ML IV SCH (15:45)
[2020-09-27] MEDS: METOCLOPRAMIDE 10 MG/2 ML VIAL IVP SCH ×4 (00:08→18:00)
[2020-09-27 03:03] VITALS: BP 136/69
[2020-09-27] MEDS: HYDROMORPHONE 0.5 MG SYG (0.5MG/0.5ML) IVP PRN ×4 (03:06→22:15)
[2020-09-27] MEDS: INSULIN HUMULIN R 100 UNIT/ML 3ML SQ SCH ×4 (05:43→18:00)
[2020-09-27] MEDS: FUROSEMIDE 20MG VIAL IV SCH ×3 (05:46→20:57)
[2020-09-27] MEDS: IPRATROPIUM/ALBUTEROL SULFATE 3 ML SOLUTION IH SCH ×3 (06:46→17:19)
[2020-09-27 08:08] VITALS: BP 132/71
[2020-09-27] MEDS: SUCRALFATE 1 GM TABLET PO SCH ×3 (08:13→20:57)
[2020-09-27] MEDS: BALSAM PERU/CASTOR OIL 60 GM TUBE TP SCH ×3 (09:00→21:03)
[2020-09-27] MEDS: FAMOTIDINE 20MG VIAL IV SCH ×2 (10:19→20:57)
[2020-09-27] MEDS: PANTOPRAZOLE 40 MG/VIAL IVP SCH ×2 (10:19→20:57)
[2020-09-27] MEDS: FAT EMULSIONS 20% 250ML 250 ML IV SCH (10:19)
[2020-09-27] MEDS: ONDANSETRON 4MG INJ IVP PRN (10:49)
[2020-09-27 11:24] VITALS: BP 136/85
[2020-09-27 15:41] VITALS: BP 131/63
[2020-09-27] MEDS: PHARMACY COMMUNICATION MISC SCH (17:15)
[2020-09-27] MEDS ORDERED: CLINIMIX-E4.25%AA/D5+LYT2000ML 2,000 ML IV SCH (17:45)
[2020-09-27 19:00] VITALS: BP 133/71
[2020-09-27 23:00] VITALS: BP 122/64
[2020-09-28] MEDS: IPRATROPIUM/ALBUTEROL SULFATE 3 ML SOLUTION IH SCH ×4 (00:02→18:40)
[2020-09-28] MEDS: METOCLOPRAMIDE 10 MG/2 ML VIAL IVP SCH ×4 (00:23→18:14)
[2020-09-28] MEDS: PHARMACY COMMUNICATION MISC SCH ×3 (01:15→17:15)
[2020-09-28 03:00] VITALS: BP 128/74
[2020-09-28] MEDS: HYDROMORPHONE 0.5 MG SYG (0.5MG/0.5ML) IVP PRN ×4 (04:03→22:08)
[2020-09-28 04:42] LABS: BASOPHILS % (AUTO) 0.3 % (0.0-5.0); HEMATOCRIT 32.4 % (42-54); LYMPHOCYTES % (AUTO) 21.6 % (21.0-51.0); MEAN CORPUSCULAR HEMOGLOBIN 28.1 pg (27.0-33.0); MEAN CORPUSCULAR HGB CONC 32.1 g/dL (32.0-36.0); MEAN CORPUSCULAR VOLUME 87.6 fL (79-99); MONOCYTES % (AUTO) 7.5 % (3.0-13.0); NEUTROPHILS % (AUTO) 68.6 % (40.0-77.0); PLATELET COUNT (AUTO) 489 K/uL (130-400); RED CELL DISTRIBUTION WIDTH 16.4 % (11.0-15.5); WHITE BLOOD COUNT (AUTO) 10.5 K/uL (4.8-10.8)
[2020-09-28 04:57] LABS: ALBUMIN 2.7 g/dL (3.5-5.0); BILIRUBIN,TOTAL 0.7 mg/dL (0.2-1.0); CREATININE 0.7 mg/dL (0.5-1.5); PHOSPHORUS 5.3 mg/dL (2.5-4.9); TOTAL PROTEIN, SERUM 8.3 g/dL (6.0-8.3)
[2020-09-28] MEDS: FUROSEMIDE 20MG VIAL IV SCH ×3 (05:54→21:56)
[2020-09-28] MEDS: INSULIN HUMULIN R 100 UNIT/ML 3ML SQ SCH ×3 (06:00→12:00)
[2020-09-28 07:31] VITALS: BP 132/73
[2020-09-28] MEDS: SUCRALFATE 1 GM TABLET PO SCH ×3 (09:00→21:00)
[2020-09-28] MEDS: FAT EMULSIONS 20% 250ML 250 ML IV SCH (09:37)
[2020-09-28] MEDS: FAMOTIDINE 20MG VIAL IV SCH ×2 (09:37→21:00)
[2020-09-28] MEDS: PANTOPRAZOLE 40 MG/VIAL IVP SCH ×2 (09:37→21:55)
[2020-09-28 11:35] VITALS: BP 131/75
[2020-09-28 15:15] VITALS: BP 148/88
[2020-09-28] MEDS ORDERED: CLINIMIX-E4.25%AA/D5+LYT2000ML 2,000 ML IV SCH (17:00)
[2020-09-28 20:41] VITALS: BP 141/72
[2020-09-28] MEDS: BALSAM PERU/CASTOR OIL 60 GM TUBE TP SCH (22:01)
[2020-09-28 23:43] VITALS: BP 128/65
[2020-09-29] MEDS: METOCLOPRAMIDE 10 MG/2 ML VIAL IVP SCH ×5 (00:06→23:57)
[2020-09-29] MEDS: IPRATROPIUM/ALBUTEROL SULFATE 3 ML SOLUTION IH SCH ×4 (00:12→18:18)
[2020-09-29] MEDS: PHARMACY COMMUNICATION MISC SCH ×2 (01:15→09:15)
[2020-09-29 03:52] VITALS: BP 123/63
[2020-09-29] MEDS: HYDROMORPHONE 0.5 MG SYG (0.5MG/0.5ML) IVP PRN ×4 (05:53→20:20)
[2020-09-29] MEDS: INSULIN HUMULIN R 100 UNIT/ML 3ML SQ SCH ×5 (06:00→21:16)
[2020-09-29] MEDS: FUROSEMIDE 20MG VIAL IV SCH ×3 (06:25→20:18)
[2020-09-29 08:46] VITALS: BP 139/80
[2020-09-29] MEDS: FAMOTIDINE 20MG VIAL IV SCH ×2 (09:00→20:18)
[2020-09-29] MEDS: SUCRALFATE 1 GM TABLET PO SCH ×3 (09:00→19:23)
[2020-09-29] MEDS: PANTOPRAZOLE 40 MG/VIAL IVP SCH ×2 (10:19→20:19)
[2020-09-29] MEDS: BALSAM PERU/CASTOR OIL 60 GM TUBE TP SCH ×3 (10:20→20:19)
[2020-09-29] MEDS: FAT EMULSIONS 20% 250ML 250 ML IV SCH (10:20)
[2020-09-29 11:45] VITALS: BP 147/86
[2020-09-29 16:45] VITALS: BP 124/82
[2020-09-29] MEDS ORDERED: CLINIMIX-E4.25%AA/D5+LYT2000ML 2,000 ML IV SCH (18:00)
[2020-09-29 20:32] VITALS: BP 136/79
[2020-09-29] MEDS: CLINIMIX-E 5%AA /D15%W 2000ML 2,000 ML IV SCH (20:35)
[2020-09-30] VITALS (7 sets, daily range): BP systolic 127–156; BP diastolic 71–82
[2020-09-30] MEDS: IPRATROPIUM/ALBUTEROL SULFATE 3 ML SOLUTION IH SCH ×4 (00:32→18:31)
[2020-09-30] MEDS: ONDANSETRON 4MG INJ IVP PRN (01:37)
[2020-09-30] MEDS: HYDROMORPHONE 0.5 MG SYG (0.5MG/0.5ML) IVP PRN ×4 (01:37→20:06)
[2020-09-30] MEDS: FUROSEMIDE 20MG VIAL IV SCH ×3 (05:22→20:01)
[2020-09-30] MEDS: METOCLOPRAMIDE 10 MG/2 ML VIAL IVP SCH ×3 (05:22→18:00)
[2020-09-30] MEDS: INSULIN HUMULIN R 100 UNIT/ML 3ML SQ SCH ×4 (05:44→20:48)
[2020-09-30 05:45] LABS: BASOPHILS % (AUTO) 0.3 % (0.0-5.0); EOSINOPHILS % (AUTO) 0.9 % (0.0-8.0); HEMATOCRIT 31.9 % (42-54); LYMPHOCYTES % (AUTO) 25.7 % (21.0-51.0); MEAN CORPUSCULAR HGB CONC 32.3 g/dL (32.0-36.0); MEAN CORPUSCULAR VOLUME 86.7 fL (79-99); NEUTROPHILS % (AUTO) 63.4 % (40.0-77.0); PLATELET COUNT (AUTO) 435 K/uL (130-400); RED BLOOD CELL COUNT(AUTO) 3.68 MIL/uL (4.50-6.20); RED CELL DISTRIBUTION WIDTH 16.2 % (11.0-15.5); WHITE BLOOD COUNT (AUTO) 10.3 K/uL (4.8-10.8)
[2020-09-30 06:04] LABS: ALBUMIN 2.8 g/dL (3.5-5.0); BILIRUBIN,TOTAL 0.9 mg/dL (0.2-1.0); CREATININE 0.7 mg/dL (0.5-1.5); MAGNESIUM 2.1 mg/dL (1.80-2.40); PHOSPHORUS 5.1 mg/dL (2.5-4.9); POTASSIUM 3.9 mmol/L (3.5-5.1); TOTAL PROTEIN, SERUM 8.6 g/dL (6.0-8.3)
[2020-09-30] MEDS: SUCRALFATE 1 GM TABLET PO SCH ×3 (09:00→20:01)
[2020-09-30] MEDS: PANTOPRAZOLE 40 MG/VIAL IVP SCH ×2 (09:00→20:00)
[2020-09-30] MEDS: FAT EMULSIONS 20% 250ML 250 ML IV SCH (10:34)
[2020-09-30] MEDS: CLINIMIX-E 5%AA /D15%W 2000ML 2,000 ML IV SCH (10:49)
[2020-09-30] MEDS: FAMOTIDINE 20MG VIAL IV SCH ×2 (10:51→20:00)
[2020-09-30] MEDS: BALSAM PERU/CASTOR OIL 60 GM TUBE TP SCH ×3 (10:51→20:01)
[2020-10-01] MEDS: IPRATROPIUM/ALBUTEROL SULFATE 3 ML SOLUTION IH SCH ×4 (00:15→19:10)
[2020-10-01] MEDS: HYDROMORPHONE 0.5 MG SYG (0.5MG/0.5ML) IVP PRN ×5 (00:41→23:49)
[2020-10-01] MEDS: METOCLOPRAMIDE 10 MG/2 ML VIAL IVP SCH ×5 (00:41→23:25)
[2020-10-01 03:33] VITALS: BP 138/73
[2020-10-01] MEDS: ONDANSETRON 4MG INJ IVP PRN (04:37)
[2020-10-01] MEDS: FUROSEMIDE 20MG VIAL IV SCH ×3 (04:38→21:13)
[2020-10-01] MEDS: INSULIN HUMULIN R 100 UNIT/ML 3ML SQ SCH ×3 (05:06→18:00)
[2020-10-01 05:30] LABS: HEMATOCRIT 33.2 % (42-54); MEAN CORPUSCULAR HEMOGLOBIN 28.1 pg (27.0-33.0); MEAN CORPUSCULAR HGB CONC 32.2 g/dL (32.0-36.0); MEAN CORPUSCULAR VOLUME 87.1 fL (79-99); RED BLOOD CELL COUNT(AUTO) 3.81 MIL/uL (4.50-6.20); RED CELL DISTRIBUTION WIDTH 16.3 % (11.0-15.5); WHITE BLOOD COUNT (AUTO) 10.7 K/uL (4.8-10.8)
[2020-10-01 05:31] LABS: CREATININE 0.8 mg/dL (0.5-1.5); POTASSIUM 3.6 mmol/L (3.5-5.1)
[2020-10-01 08:04] VITALS: BP 140/72
[2020-10-01] MEDS: BALSAM PERU/CASTOR OIL 60 GM TUBE TP SCH ×3 (09:00→21:14)
[2020-10-01] MEDS: SUCRALFATE 1 GM TABLET PO SCH ×3 (09:00→21:00)
[2020-10-01] MEDS: PANTOPRAZOLE 40 MG/VIAL IVP SCH ×2 (09:59→21:12)
[2020-10-01] MEDS: FAMOTIDINE 20MG VIAL IV SCH ×2 (09:59→21:12)
[2020-10-01] MEDS: FAT EMULSIONS 20% 250ML 250 ML IV SCH (09:59)
[2020-10-01] MEDS ORDERED: FAT EMULSIONS 20% 250ML 250 ML IV SCH (10:00)
[2020-10-01] MEDS: CLINIMIX-E 5%AA /D15%W 2000ML 2,000 ML IV NR ×2 (10:27→23:26)
[2020-10-01 11:50] VITALS: BP 137/78
[2020-10-01 16:00] VITALS: BP 136/82
[2020-10-01 19:23] VITALS: BP 133/78
[2020-10-02] VITALS (7 sets, daily range): BP systolic 126–158; BP diastolic 77–91
[2020-10-02] MEDS: IPRATROPIUM/ALBUTEROL SULFATE 3 ML SOLUTION IH SCH ×2 (00:52→06:41)
[2020-10-02] MEDS: INSULIN HUMULIN R 100 UNIT/ML 3ML SQ SCH ×4 (05:32→17:44)
[2020-10-02] MEDS: METOCLOPRAMIDE 10 MG/2 ML VIAL IVP SCH ×4 (05:40→23:37)
[2020-10-02] MEDS: HYDROMORPHONE 0.5 MG SYG (0.5MG/0.5ML) IVP PRN ×4 (05:41→22:18)
[2020-10-02] MEDS: FUROSEMIDE 20MG VIAL IV SCH ×3 (05:41→22:18)
[2020-10-02] MEDS: BALSAM PERU/CASTOR OIL 60 GM TUBE TP SCH ×3 (09:00→20:49)
[2020-10-02] MEDS: SUCRALFATE 1 GM TABLET PO SCH ×3 (09:00→20:48)
[2020-10-02 09:26] LABS: BASOPHILS % (AUTO) 0.6 % (0.0-5.0); EOSINOPHILS % (AUTO) 1.4 % (0.0-8.0); HEMATOCRIT 32.8 % (42-54); LYMPHOCYTES % (AUTO) 28.1 % (21.0-51.0); MEAN CORPUSCULAR HEMOGLOBIN 28.1 pg (27.0-33.0); MEAN CORPUSCULAR HGB CONC 31.7 g/dL (32.0-36.0); MEAN CORPUSCULAR VOLUME 88.6 fL (79-99); MONOCYTES % (AUTO) 9.1 % (3.0-13.0); NEUTROPHILS % (AUTO) 59.9 % (40.0-77.0); PLATELET COUNT (AUTO) 362 K/uL (130-400); RED CELL DISTRIBUTION WIDTH 16.1 % (11.0-15.5)
[2020-10-02 09:40] LABS: CREATININE 0.7 mg/dL (0.5-1.5); POTASSIUM 3.2 mmol/L (3.5-5.1)
[2020-10-02] MEDS: PANTOPRAZOLE 40 MG/VIAL IVP SCH ×2 (10:12→20:48)
[2020-10-02] MEDS: FAMOTIDINE 20MG VIAL IV SCH ×2 (10:12→20:48)
[2020-10-02] MEDS ORDERED: IPRATROPIUM/ALBUTEROL SULFATE 3 ML SOLUTION IH PRN (11:15)
[2020-10-02] MEDS: FAT EMULSIONS 20% 250ML 250 ML IV SCH (11:54)
[2020-10-02] MEDS ORDERED: PHARMACY COMMUNICATION MISC SCH (12:00)
[2020-10-02] MEDS: CLINIMIX-E 5%AA /D15%W 2000ML 2,000 ML IV NR (13:35)
[2020-10-02] MEDS: ONDANSETRON 4MG INJ IVP PRN (14:39)
[2020-10-03] VITALS (7 sets, daily range): BP systolic 135–155; BP diastolic 80–93
[2020-10-03] MEDS: HYDROMORPHONE 0.5 MG SYG (0.5MG/0.5ML) IVP PRN ×5 (02:55→21:25)
[2020-10-03] MEDS: ONDANSETRON 4MG INJ IVP PRN ×3 (03:09→21:20)
[2020-10-03] MEDS: METOCLOPRAMIDE 10 MG/2 ML VIAL IVP SCH ×4 (05:17→23:44)
[2020-10-03] MEDS: FUROSEMIDE 20MG VIAL IV SCH ×3 (05:18→21:25)
[2020-10-03] MEDS: INSULIN HUMULIN R 100 UNIT/ML 3ML SQ SCH ×4 (05:45→18:00)
[2020-10-03] MEDS: FAMOTIDINE 20MG VIAL IV SCH ×2 (08:06→21:19)
[2020-10-03] MEDS: PANTOPRAZOLE 40 MG/VIAL IVP SCH ×2 (09:00→21:20)
[2020-10-03] MEDS: SUCRALFATE 1 GM TABLET PO SCH ×3 (09:00→21:00)
[2020-10-03] MEDS: BALSAM PERU/CASTOR OIL 60 GM TUBE TP SCH ×3 (09:00→23:46)
[2020-10-03] MEDS: CLINIMIX-E 5%AA /D15%W 2000ML 2,000 ML IV NR (12:25)
[2020-10-03] MEDS: FAT EMULSIONS 20% 250ML 250 ML IV SCH (12:26)
[2020-10-03] MEDS ORDERED: RIVA20TA PO (17:51)
[2020-10-03] MEDS ORDERED: PIND10TA2 PO (17:51)
[2020-10-03] MEDS ORDERED: FAMO20TA8 PO (17:51)
[2020-10-03] MEDS ORDERED: LEVO100C4 PO (17:51)
[2020-10-04] MEDS: ONDANSETRON 4MG INJ IVP PRN ×3 (03:05→19:49)
[2020-10-04] MEDS: HYDROMORPHONE 0.5 MG SYG (0.5MG/0.5ML) IVP PRN ×5 (03:05→23:33)
[2020-10-04 03:15] VITALS: BP 142/78
[2020-10-04] MEDS: INSULIN HUMULIN R 100 UNIT/ML 3ML SQ SCH ×4 (06:00→16:34)
[2020-10-04] MEDS: FUROSEMIDE 20MG VIAL IV SCH ×3 (06:14→23:31)
[2020-10-04] MEDS: METOCLOPRAMIDE 10 MG/2 ML VIAL IVP SCH ×4 (06:14→23:31)
[2020-10-04 08:00] VITALS: BP 137/77
[2020-10-04] MEDS: SUCRALFATE 1 GM TABLET PO SCH ×2 (08:10→14:00)
[2020-10-04] MEDS: BALSAM PERU/CASTOR OIL 60 GM TUBE TP SCH ×3 (08:11→20:12)
[2020-10-04] MEDS: FAT EMULSIONS 20% 250ML 250 ML IV SCH (10:12)
[2020-10-04] MEDS: PANTOPRAZOLE 40 MG/VIAL IVP SCH ×2 (10:12→19:49)
[2020-10-04] MEDS: FAMOTIDINE 20MG VIAL IV SCH ×2 (10:12→19:49)
[2020-10-04 11:00] VITALS: BP 137/76
[2020-10-04] MEDS: CLINIMIX-E 5%AA /D15%W 2000ML 2,000 ML IV NR (12:04)
[2020-10-04 16:00] VITALS: BP 163/78
[2020-10-04] MEDS: POTASSIUM CHLORIDE 20MEQ/100ML 100 ML IV PRN ×2 (19:50→23:32)
[2020-10-04 20:36] VITALS: BP 134/76
[2020-10-05 01:13] VITALS: BP 122/66
[2020-10-05] MEDS: ONDANSETRON 4MG INJ IVP PRN (04:26)
[2020-10-05] MEDS: HYDROMORPHONE 0.5 MG SYG (0.5MG/0.5ML) IVP PRN ×5 (04:27→23:07)
[2020-10-05 04:51] VITALS: BP 135/79
[2020-10-05] MEDS: FUROSEMIDE 20MG VIAL IV SCH ×3 (05:43→23:08)
[2020-10-05] MEDS: METOCLOPRAMIDE 10 MG/2 ML VIAL IVP SCH ×4 (05:43→23:06)
[2020-10-05] MEDS: INSULIN HUMULIN R 100 UNIT/ML 3ML SQ SCH ×4 (06:00→17:01)
[2020-10-05 06:01] LABS: HEMATOCRIT 32.4 % (42-54); MEAN CORPUSCULAR HGB CONC 32.1 g/dL (32.0-36.0); MEAN CORPUSCULAR VOLUME 87.3 fL (79-99); RED BLOOD CELL COUNT(AUTO) 3.71 MIL/uL (4.50-6.20); RED CELL DISTRIBUTION WIDTH 15.5 % (11.0-15.5); WHITE BLOOD COUNT (AUTO) 7.5 K/uL (4.8-10.8)
[2020-10-05 06:39] LABS: ALBUMIN 3.1 g/dL (3.5-5.0); BILIRUBIN,TOTAL 0.8 mg/dL (0.2-1.0); CREATININE 0.8 mg/dL (0.5-1.5); PHOSPHORUS 5.5 mg/dL (2.5-4.9); POTASSIUM 3.5 mmol/L (3.5-5.1); TOTAL PROTEIN, SERUM 8.5 g/dL (6.0-8.3)
[2020-10-05 08:00] VITALS: BP 146/83
[2020-10-05] MEDS: BALSAM PERU/CASTOR OIL 60 GM TUBE TP SCH ×3 (08:29→23:10)
[2020-10-05] MEDS: POTASSIUM CHLORIDE 20MEQ/100ML 100 ML IV PRN (09:03)
[2020-10-05] MEDS: PANTOPRAZOLE 40 MG/VIAL IVP SCH ×2 (09:04→23:07)
[2020-10-05] MEDS: FAMOTIDINE 20MG VIAL IV SCH ×2 (09:04→23:06)
[2020-10-05] MEDS: FAT EMULSIONS 20% 250ML 250 ML IV SCH (09:37)
[2020-10-05] MEDS: CLINIMIX-E 5%AA /D15%W 2000ML 2,000 ML IV NR (09:50)
[2020-10-05 12:21] VITALS: BP 144/80
[2020-10-05 16:00] VITALS: BP 145/87
[2020-10-05 20:46] VITALS: BP 108/64
[2020-10-06] VITALS (7 sets, daily range): BP systolic 117–150; BP diastolic 66–87
[2020-10-06] MEDS: ONDANSETRON 4MG INJ IVP PRN (03:54)
[2020-10-06] MEDS: HYDROMORPHONE 0.5 MG SYG (0.5MG/0.5ML) IVP PRN ×5 (04:03→21:10)
[2020-10-06] MEDS: INSULIN HUMULIN R 100 UNIT/ML 3ML SQ SCH ×4 (06:00→23:32)
[2020-10-06] MEDS: METOCLOPRAMIDE 10 MG/2 ML VIAL IVP SCH ×4 (07:49→23:04)
[2020-10-06] MEDS: FUROSEMIDE 20MG VIAL IV SCH ×3 (07:50→21:10)
[2020-10-06] MEDS: BALSAM PERU/CASTOR OIL 60 GM TUBE TP SCH ×3 (09:00→21:10)
[2020-10-06] MEDS: FAMOTIDINE 20MG VIAL IV SCH ×2 (09:51→20:56)
[2020-10-06] MEDS: PANTOPRAZOLE 40 MG/VIAL IVP SCH ×2 (09:52→20:56)
[2020-10-06] MEDS: FAT EMULSIONS 20% 250ML 250 ML IV SCH (10:17)
[2020-10-06] MEDS: CLINIMIX-E 5%AA /D15%W 2000ML 2,000 ML IV NR (10:17)
[2020-10-07] MEDS: HYDROMORPHONE 0.5 MG SYG (0.5MG/0.5ML) IVP PRN ×6 (01:15→22:43)
[2020-10-07] MEDS: ONDANSETRON 4MG INJ IVP PRN ×3 (01:21→21:00)
[2020-10-07 05:00] VITALS: BP 141/92
[2020-10-07] MEDS: FUROSEMIDE 20MG VIAL IV SCH ×3 (05:36→22:34)
[2020-10-07] MEDS: METOCLOPRAMIDE 10 MG/2 ML VIAL IVP SCH (05:36)
[2020-10-07] MEDS: INSULIN HUMULIN R 100 UNIT/ML 3ML SQ SCH ×3 (05:56→18:00)
[2020-10-07 07:45] VITALS: BP 121/75
[2020-10-07] MEDS: BALSAM PERU/CASTOR OIL 60 GM TUBE TP SCH ×3 (09:00→21:00)
[2020-10-07] MEDS: CLINIMIX-E 5%AA /D15%W 2000ML 2,000 ML IV NR ×2 (09:00→12:37)
[2020-10-07] MEDS: FAT EMULSIONS 20% 250ML 250 ML IV SCH (09:10)
[2020-10-07] MEDS ORDERED: DEXTROSE 10%-WATER 1,000 ML IV ONE (09:12)
[2020-10-07] MEDS: PANTOPRAZOLE 40 MG/VIAL IVP SCH ×2 (09:21→21:01)
[2020-10-07] MEDS: FAMOTIDINE 20MG VIAL IV SCH ×2 (09:21→21:00)
[2020-10-07 12:00] VITALS: BP 139/77
[2020-10-07 16:00] VITALS: BP 131/83
[2020-10-07 20:49] VITALS: BP 114/69
[2020-10-08] VITALS (16 sets, daily range): BP systolic 111–138; BP diastolic 62–74
[2020-10-08] MEDS: HYDROMORPHONE 0.5 MG SYG (0.5MG/0.5ML) IVP PRN ×6 (00:29→19:25)
[2020-10-08 05:44] LABS: BASOPHILS % (AUTO) 0.5 % (0.0-5.0); HEMATOCRIT 31.6 % (42-54); LYMPHOCYTES % (AUTO) 33.8 % (21.0-51.0); MEAN CORPUSCULAR HEMOGLOBIN 28.7 pg (27.0-33.0); MEAN CORPUSCULAR HGB CONC 32.6 g/dL (32.0-36.0); MONOCYTES % (AUTO) 11.8 % (3.0-13.0); NEUTROPHILS % (AUTO) 50.3 % (40.0-77.0); PLATELET COUNT (AUTO) 234 K/uL (130-400); RED BLOOD CELL COUNT(AUTO) 3.59 MIL/uL (4.50-6.20); RED CELL DISTRIBUTION WIDTH 15.1 % (11.0-15.5); WHITE BLOOD COUNT (AUTO) 8.1 K/uL (4.8-10.8)
[2020-10-08] MEDS: ONDANSETRON 4MG INJ IVP PRN ×2 (05:45→10:15)
[2020-10-08] MEDS: FUROSEMIDE 20MG VIAL IV SCH ×3 (05:45→21:25)
[2020-10-08] MEDS: INSULIN HUMULIN R 100 UNIT/ML 3ML SQ SCH ×4 (06:00→18:00)
[2020-10-08 06:16] LABS: ALBUMIN 2.9 g/dL (3.5-5.0); BILIRUBIN,TOTAL 0.8 mg/dL (0.2-1.0); CREATININE 0.6 mg/dL (0.5-1.5); MAGNESIUM 1.8 mg/dL (1.80-2.40); POTASSIUM 3.4 mmol/L (3.5-5.1); TOTAL PROTEIN, SERUM 8.3 g/dL (6.0-8.3)
[2020-10-08] MEDS: BALSAM PERU/CASTOR OIL 60 GM TUBE TP SCH ×3 (09:00→21:00)
[2020-10-08] MEDS: FAT EMULSIONS 20% 250ML 250 ML IV SCH (10:12)
[2020-10-08] MEDS: FAMOTIDINE 20MG VIAL IV SCH ×2 (10:12→21:24)
[2020-10-08] MEDS: MAGNESIUM 2GM PREMIX 50ML 50 ML IV PRN (10:13)
[2020-10-08] MEDS: PANTOPRAZOLE 40 MG/VIAL IVP SCH ×2 (10:13→21:24)
[2020-10-08] MEDS ORDERED: KCL 20 MEQ ERTAB PO PRN (10:45)
[2020-10-08] MEDS ORDERED: POTASSIUM CHLORIDE 10% ELIXIR 20 MEQ/15 ML UDCUP PO PRN (10:45)
[2020-10-08] MEDS ORDERED: LIDOCAINE HCL-MPF 1% 2ML VIAL IV PRN (10:45)
[2020-10-08] MEDS: POTASSIUM CHLORIDE 20MEQ/100ML 100 ML IV PRN (12:22)
[2020-10-08] MEDS: CLINIMIX-E 5%AA /D15%W 2000ML 2,000 ML IV NR (12:36)
[2020-10-08] MEDS: METOCLOPRAMIDE 10 MG/2 ML VIAL IVP SCH ×2 (14:51→21:24)
[2020-10-08] MEDS ORDERED: LIDOCAINE HCL-MPF 2% 5ML VIAL ONE (15:17)
[2020-10-08] MEDS ORDERED: PROPOFOL 10 MG/ML 20ML VIAL IV ONE ×2 (15:17→15:44)
[2020-10-08] MEDS ORDERED: CEFAZOLIN SODIUM 1 GM VIAL ONE (15:38)
[2020-10-08] MEDS ORDERED: MEPERIDINE HCL/PF 25 MG/0.5 ML AMPUL ONE (16:58)
[2020-10-08] MEDS ORDERED: MEPERIDINE HCL/PF 25 MG/0.5 ML AMPUL IVP ONE (17:00)
[2020-10-09] MEDS: ONDANSETRON 4MG INJ IVP PRN ×3 (00:21→17:31)
[2020-10-09] MEDS: HYDROMORPHONE 0.5 MG SYG (0.5MG/0.5ML) IVP PRN ×6 (00:22→22:08)
[2020-10-09 04:09] VITALS: BP 150/81
[2020-10-09 05:32] LABS: HEMATOCRIT 29.7 % (42-54); MEAN CORPUSCULAR HEMOGLOBIN 30.7 pg (27.0-33.0); MEAN CORPUSCULAR HGB CONC 34.3 g/dL (32.0-36.0); MEAN CORPUSCULAR VOLUME 89.5 fL (79-99); PLATELET COUNT (AUTO) 223 K/uL (130-400); RED BLOOD CELL COUNT(AUTO) 3.32 MIL/uL (4.50-6.20); RED CELL DISTRIBUTION WIDTH 15.2 % (11.0-15.5); WHITE BLOOD COUNT (AUTO) 8.5 K/uL (4.8-10.8)
[2020-10-09] MEDS: INSULIN HUMULIN R 100 UNIT/ML 3ML SQ SCH ×5 (06:00→23:31)
[2020-10-09 06:01] LABS: CREATININE 0.6 mg/dL (0.5-1.5); POTASSIUM 3.3 mmol/L (3.5-5.1)
[2020-10-09] MEDS: POTASSIUM CHLORIDE 20MEQ/100ML 100 ML IV PRN (06:51)
[2020-10-09] MEDS: FUROSEMIDE 20MG VIAL IV SCH ×3 (06:52→22:08)
[2020-10-09 06:55] LABS: BAND NEUTROPHILS % (MANUAL) 1 % (0-2); BASOPHILS % (MANUAL) 1 % (0-2); LYMPHOCYTES % (MANUAL) 29 % (22-44); MAN.DIFF COMMENT-IMPRESSION MANUAL DIFFERENTIAL; MONOCYTES % (MANUAL) 6 % (2-9); PLATELET MORPHOLOGY COMMENT ADEQUATE; SEGMENTED NEUTROPHILS % 63 % (40-70)
[2020-10-09 07:00] VITALS: BP 145/87
[2020-10-09 07:40] LABS: BASOPHILS % (AUTO) 0.3 % (0.0-5.0); EOSINOPHILS % (AUTO) 1.5 % (0.0-8.0); LYMPHOCYTES % (AUTO) 28.3 % (21.0-51.0); MONOCYTES % (AUTO) 10.1 % (3.0-13.0); NEUTROPHILS % (AUTO) 59.3 % (40.0-77.0)
[2020-10-09] MEDS: METOCLOPRAMIDE 10 MG/2 ML VIAL IVP SCH ×3 (08:12→20:50)
[2020-10-09] MEDS: PANTOPRAZOLE 40 MG/VIAL IVP SCH ×2 (08:12→20:50)
[2020-10-09] MEDS: FAMOTIDINE 20MG VIAL IV SCH ×2 (08:12→20:50)
[2020-10-09] MEDS: BALSAM PERU/CASTOR OIL 60 GM TUBE TP SCH ×3 (09:00→21:00)
[2020-10-09] MEDS: FAT EMULSIONS 20% 250ML 250 ML IV SCH (10:36)
[2020-10-09] MEDS: CLINIMIX-E 5%AA /D15%W 2000ML 2,000 ML IV NR (10:49)
[2020-10-09 11:00] VITALS: BP 128/76
[2020-10-09 16:00] VITALS: BP 126/70
[2020-10-09 21:21] VITALS: BP 140/73
[2020-10-10] VITALS (7 sets, daily range): BP systolic 126–169; BP diastolic 66–84
[2020-10-10] MEDS: ONDANSETRON 4MG INJ IVP PRN ×3 (02:08→21:18)
[2020-10-10] MEDS: HYDROMORPHONE 0.5 MG SYG (0.5MG/0.5ML) IVP PRN ×4 (02:08→06:48)
[2020-10-10] MEDS: INSULIN HUMULIN R 100 UNIT/ML 3ML SQ SCH ×3 (06:00→18:00)
[2020-10-10] MEDS: FUROSEMIDE 20MG VIAL IV SCH ×3 (06:26→21:28)
[2020-10-10 07:15] LABS: ALBUMIN 2.9 g/dL (3.5-5.0); BILIRUBIN,TOTAL 0.7 mg/dL (0.2-1.0); CREATININE 0.7 mg/dL (0.5-1.5); POTASSIUM 3.5 mmol/L (3.5-5.1); TOTAL PROTEIN, SERUM 7.9 g/dL (6.0-8.3)
[2020-10-10] MEDS: BALSAM PERU/CASTOR OIL 60 GM TUBE TP SCH ×3 (09:00→21:29)
[2020-10-10] MEDS ORDERED: KETOROLAC 15MG/ML VIAL (15MG/ML) IM PRN (10:30)
[2020-10-10] MEDS: METOCLOPRAMIDE 10 MG/2 ML VIAL IVP SCH ×3 (10:33→21:25)
[2020-10-10] MEDS: FAMOTIDINE 20MG VIAL IV SCH ×2 (10:33→21:23)
[2020-10-10] MEDS: PANTOPRAZOLE 40 MG/VIAL IVP SCH ×2 (10:34→21:28)
[2020-10-10] MEDS: CLINIMIX-E 5%AA /D15%W 2000ML 2,000 ML IV NR (10:34)
[2020-10-10] MEDS: KETOROLAC 15MG/ML VIAL (15MG/ML) IV PRN ×2 (12:28→18:47)
[2020-10-10] MEDS: POTASSIUM CHLORIDE 20MEQ/100ML 100 ML IV PRN (18:22)
[2020-10-10] MEDS: FAT EMULSIONS 20% 250ML 250 ML IV SCH (21:29)
[2020-10-11] MEDS: KETOROLAC 15MG/ML VIAL (15MG/ML) IV PRN ×4 (00:22→19:42)
[2020-10-11] MEDS: ONDANSETRON 4MG INJ IVP PRN ×3 (03:04→23:58)
[2020-10-11 03:42] VITALS: BP 137/81
[2020-10-11] MEDS: INSULIN HUMULIN R 100 UNIT/ML 3ML SQ SCH ×4 (05:28→18:00)
[2020-10-11 06:00] LABS: ALBUMIN 2.9 g/dL (3.5-5.0); BILIRUBIN,TOTAL 0.7 mg/dL (0.2-1.0); CREATININE 0.8 mg/dL (0.5-1.5); POTASSIUM 3.4 mmol/L (3.5-5.1); TOTAL PROTEIN, SERUM 7.9 g/dL (6.0-8.3)
[2020-10-11] MEDS: FUROSEMIDE 20MG VIAL IV SCH ×3 (06:00→21:40)
[2020-10-11 08:00] VITALS: BP 118/65
[2020-10-11] MEDS: FAMOTIDINE 20MG VIAL IV SCH ×2 (09:03→21:39)
[2020-10-11] MEDS: METOCLOPRAMIDE 10 MG/2 ML VIAL IVP SCH ×3 (09:03→21:39)
[2020-10-11] MEDS: PANTOPRAZOLE 40 MG/VIAL IVP SCH ×2 (09:03→21:39)
[2020-10-11] MEDS: BALSAM PERU/CASTOR OIL 60 GM TUBE TP SCH ×3 (09:04→21:00)
[2020-10-11] MEDS: CLINIMIX-E 5%AA /D15%W 2000ML 2,000 ML IV NR (10:13)
[2020-10-11 12:00] VITALS: BP 122/72
[2020-10-11 16:00] VITALS: BP 124/71
[2020-10-11 20:22] VITALS: BP 121/61
[2020-10-11] MEDS: FAT EMULSIONS 20% 250ML 250 ML IV SCH (21:00)
[2020-10-12] VITALS (7 sets, daily range): BP systolic 123–138; BP diastolic 67–78
[2020-10-12] MEDS: KETOROLAC 15MG/ML VIAL (15MG/ML) IV PRN ×4 (03:28→22:18)
[2020-10-12] MEDS: FUROSEMIDE 20MG VIAL IV SCH ×3 (05:50→22:10)
[2020-10-12] MEDS: INSULIN HUMULIN R 100 UNIT/ML 3ML SQ SCH ×4 (06:00→17:39)
[2020-10-12] MEDS: ONDANSETRON 4MG INJ IVP PRN (06:06)
[2020-10-12 06:46] LABS: CREATININE 0.8 mg/dL (0.5-1.5); PHOSPHORUS 4.8 mg/dL (2.5-4.9); POTASSIUM 3.2 mmol/L (3.5-5.1)
[2020-10-12] MEDS: FAMOTIDINE 20MG VIAL IV SCH ×2 (09:56→20:45)
[2020-10-12] MEDS: METOCLOPRAMIDE 10 MG/2 ML VIAL IVP SCH ×3 (09:56→22:09)
[2020-10-12] MEDS: PANTOPRAZOLE 40 MG/VIAL IVP SCH ×2 (09:58→20:45)
[2020-10-12] MEDS: CLINIMIX-E 5%AA /D15%W 2000ML 2,000 ML IV NR (10:05)
[2020-10-12] MEDS: BALSAM PERU/CASTOR OIL 60 GM TUBE TP SCH ×3 (10:06→22:18)
[2020-10-12] MEDS: FAT EMULSIONS 20% 250ML 250 ML IV SCH (20:51)
[2020-10-13] VITALS (27 sets, daily range): BP systolic 92–140; BP diastolic 49–85
[2020-10-13] MEDS: ONDANSETRON 4MG INJ IVP PRN ×4 (02:01→23:42)
[2020-10-13] MEDS: KETOROLAC 15MG/ML VIAL (15MG/ML) IV PRN ×3 (04:06→19:07)
[2020-10-13] MEDS: INSULIN HUMULIN R 100 UNIT/ML 3ML SQ SCH ×4 (05:45→18:00)
[2020-10-13] MEDS: FUROSEMIDE 20MG VIAL IV SCH ×3 (05:45→20:51)
[2020-10-13] MEDS: FAMOTIDINE 20MG VIAL IV SCH ×2 (08:26→20:50)
[2020-10-13] MEDS: METOCLOPRAMIDE 10 MG/2 ML VIAL IVP SCH ×3 (08:26→20:50)
[2020-10-13] MEDS: PANTOPRAZOLE 40 MG/VIAL IVP SCH ×2 (08:26→20:51)
[2020-10-13] MEDS: BALSAM PERU/CASTOR OIL 60 GM TUBE TP SCH ×2 (08:27→14:00)
[2020-10-13] MEDS: CLINIMIX-E 5%AA /D15%W 2000ML 2,000 ML IV NR (09:00)
[2020-10-13] MEDS ORDERED: PROPOFOL 10 MG/ML 20ML VIAL IV ONE (14:37)
[2020-10-13] MEDS ORDERED: ONDANSETRON 4MG INJ ONE (14:37)
[2020-10-13] MEDS ORDERED: SUCCINYLCHOLINE CHLORIDE 20 MG/ML 10 ML VIAL ONE (14:37)
[2020-10-13] MEDS ORDERED: LIDOCAINE PF 100MG/5ML (2%) SYRINGE 5ML ONE (14:37)
[2020-10-13] MEDS ORDERED: MIDAZOLAM HCL 1 MG/ML 2ML VIAL ONE (14:37)
[2020-10-13] MEDS ORDERED: ROCURONIUM 10MG/1ML SYR 10 MG/ML ML ONE (14:38)
[2020-10-13] MEDS ORDERED: FENTANYL CITRATE PF 50 MCG/1 ML 2ML VIAL ONE ×3 (14:54→16:44)
[2020-10-13] MEDS ORDERED: BUPIVACAINE/PF 0.25% 30ML VIAL IJ ONE (16:18)
[2020-10-13] MEDS ORDERED: NEOSTIGMINE 5MG/5ML SYR IV ONE (16:33)
[2020-10-13] MEDS ORDERED: GLYCOPYRROLATE 1 MG/5 ML SYRINGE ONE (16:33)
[2020-10-13 16:36] LABS: HEMATOCRIT 28.1 % (42-54)
[2020-10-13] MEDS ORDERED: CEFOXITIN SODIUM 1 GM VIAL ONE (17:03)
[2020-10-13] MEDS ORDERED: MEPERIDINE-PF 25 MG/ML SYG ONE ×3 (17:04→17:44)
[2020-10-13 17:33] LABS: HEMATOCRIT 25.3 % (42-54); MEAN CORPUSCULAR HEMOGLOBIN 28.5 pg (27.0-33.0); MEAN CORPUSCULAR HGB CONC 32.8 g/dL (32.0-36.0); MEAN CORPUSCULAR VOLUME 86.9 fL (79-99); RED BLOOD CELL COUNT(AUTO) 2.91 MIL/uL (4.50-6.20); RED CELL DISTRIBUTION WIDTH 15.2 % (11.0-15.5); WHITE BLOOD COUNT (AUTO) 18.3 K/uL (4.8-10.8)
[2020-10-13] MEDS ORDERED: CLINIMIX-E4.25%AA/D5+LYT2000ML 2,000 ML IV SCH (19:30)
[2020-10-13] MEDS ORDERED: DEXTROSE 10%-WATER 1,000 ML IV ONE ×2 (19:59→20:34)
[2020-10-13] MEDS ORDERED: MORPHINE 2 MG SYG ONE (20:33)
[2020-10-13] MEDS: FAT EMULSIONS 20% 250ML 250 ML IV SCH (20:45)
[2020-10-13] MEDS: MORPHINE 2 MG SYG IVP PRN (23:41)
[2020-10-14] MEDS: ZOSYN 3.375GM+NS 50ML 50 ML IV SCH ×3 (00:30→17:47)
[2020-10-14] MEDS ORDERED: ACETAMINOPHEN 120 MG SUPPOSITORY RC PRN (00:30)
[2020-10-14] MEDS ORDERED: ZOSYN 3.375GM+NS 50ML 50 ML IV ONE (00:37)
[2020-10-14] MEDS ORDERED: ACETAMINOPHEN 650 MG SUPPOSITORY RC ONE (00:37)
[2020-10-14 03:00] VITALS: BP 131/67
[2020-10-14] MEDS: MORPHINE 2 MG SYG IVP PRN ×5 (03:04→22:30)
[2020-10-14 03:41] VITALS: BP 127/67
[2020-10-14] MEDS: FUROSEMIDE 20MG VIAL IV SCH ×3 (05:14→21:18)
[2020-10-14 05:42] LABS: BASOPHILS % (AUTO) 0.2 % (0.0-5.0); EOSINOPHILS % (AUTO) 0.4 % (0.0-8.0); HEMATOCRIT 23.9 % (42-54); LYMPHOCYTES % (AUTO) 9.5 % (21.0-51.0); MEAN CORPUSCULAR HEMOGLOBIN 29.2 pg (27.0-33.0); MEAN CORPUSCULAR HGB CONC 33.1 g/dL (32.0-36.0); MEAN CORPUSCULAR VOLUME 88.2 fL (79-99); MONOCYTES % (AUTO) 7.9 % (3.0-13.0); NEUTROPHILS % (AUTO) 81.4 % (40.0-77.0); PLATELET COUNT (AUTO) 184 K/uL (130-400); RED BLOOD CELL COUNT(AUTO) 2.71 MIL/uL (4.50-6.20); RED CELL DISTRIBUTION WIDTH 15.6 % (11.0-15.5); WHITE BLOOD COUNT (AUTO) 23.8 K/uL (4.8-10.8)
[2020-10-14] MEDS: INSULIN HUMULIN R 100 UNIT/ML 3ML SQ SCH ×4 (06:00→18:00)
[2020-10-14] MEDS: ONDANSETRON 4MG INJ IVP PRN (06:25)
[2020-10-14 06:30] LABS: ALBUMIN 2.2 g/dL (3.5-5.0); BILIRUBIN,DIRECT 0.4 mg/dL (0.0-0.3); BILIRUBIN,TOTAL 0.8 mg/dL (0.2-1.0); CREATININE 1.3 mg/dL (0.5-1.5); MAGNESIUM 1.7 mg/dL (1.80-2.40); PHOSPHORUS 5.4 mg/dL (2.5-4.9); POTASSIUM 4.9 mmol/L (3.5-5.1); TOTAL PROTEIN, SERUM 6.7 g/dL (6.0-8.3)
[2020-10-14 08:53] VITALS: BP 115/70
[2020-10-14] MEDS: PANTOPRAZOLE 40 MG/VIAL IVP SCH ×2 (08:58→21:18)
[2020-10-14] MEDS: FAMOTIDINE 20MG VIAL IV SCH ×2 (08:58→21:18)
[2020-10-14] MEDS: METOCLOPRAMIDE 10 MG/2 ML VIAL IVP SCH ×3 (08:58→21:18)
[2020-10-14] MEDS: BALSAM PERU/CASTOR OIL 60 GM TUBE TP SCH ×3 (08:59→21:18)
[2020-10-14 12:30] VITALS: BP 129/78
[2020-10-14 16:00] VITALS: BP 131/58
[2020-10-14 18:08] LABS: APPEARANCE,URINE Clear (CLEAR); BILIRUBIN,URINE Negative (NEGATIVE); COLOR,URINE Yellow (YELLOW); GLUCOSE, URINE (UA) Negative (NEGATIVE); KETONES,URINE Negative (NEGATIVE); LEUKOCYTE ESTERASE ,URINE Negative (NEGATIVE); NITRATE,URINE Negative (NEGATIVE); OCCULT BLOOD,URINE Negative (NEGATIVE); PROTEIN,URINE Negative (NEGATIVE)
[2020-10-14] MEDS ORDERED: ACETAMINOPHEN 650 MG SUPPOSITORY RC PRN (18:30)
[2020-10-14] MEDS ORDERED: CLINIMIX-E4.25%AA/D5+LYT2000ML 2,000 ML IV SCH (19:00)
[2020-10-14 20:00] VITALS: BP 141/75
[2020-10-14] MEDS: FAT EMULSIONS 20% 250ML 250 ML IV SCH (21:19)
[2020-10-14] MEDS ORDERED: VANCOMYCIN PROTOCOL PER PHARMACY IV SCH (22:00)
[2020-10-14] MEDS ORDERED: VANCOMYCIN 1G/250ML KIT 250 ML IV SCH (22:00)
[2020-10-15] VITALS: BP 135/70
[2020-10-15] MEDS ORDERED: VANCOMYCIN 1G/250ML KIT 500 ML IV ONE (00:38)
[2020-10-15] MEDS: ZOSYN 3.375GM+NS 50ML 50 ML IV SCH ×3 (00:49→16:56)
[2020-10-15] MEDS: MORPHINE 2 MG SYG IVP PRN ×5 (01:53→18:59)
[2020-10-15] MEDS: ONDANSETRON 4MG INJ IVP PRN ×3 (02:56→19:00)
[2020-10-15 04:07] VITALS: BP 124/67
[2020-10-15] MEDS: INSULIN HUMULIN R 100 UNIT/ML 3ML SQ SCH ×4 (06:00→18:00)
[2020-10-15] MEDS: FUROSEMIDE 20MG VIAL IV SCH ×3 (06:14→21:32)
[2020-10-15 07:33] LABS: BILIRUBIN,TOTAL 0.5 mg/dL (0.2-1.0); CREATININE 0.7 mg/dL (0.5-1.5); POTASSIUM 3.9 mmol/L (3.5-5.1); TOTAL PROTEIN, SERUM 6.5 g/dL (6.0-8.3)
[2020-10-15 08:08] VITALS: BP 150/70
[2020-10-15] MEDS: PANTOPRAZOLE 40 MG/VIAL IVP SCH ×2 (08:12→21:31)
[2020-10-15] MEDS: FAMOTIDINE 20MG VIAL IV SCH ×2 (08:12→21:31)
[2020-10-15] MEDS: FLUCONAZOLE 400 MG/NS 200 ML 200 ML IV SCH (08:12)
[2020-10-15] MEDS: BALSAM PERU/CASTOR OIL 60 GM TUBE TP SCH ×3 (08:13→21:32)
[2020-10-15] MEDS: METOCLOPRAMIDE 10 MG/2 ML VIAL IVP SCH ×3 (08:13→21:31)
[2020-10-15 08:50] LABS: MEAN CORPUSCULAR HEMOGLOBIN 29.2 pg (27.0-33.0); MEAN CORPUSCULAR VOLUME 88.6 fL (79-99); PLATELET COUNT (AUTO) 161 K/uL (130-400); RED BLOOD CELL COUNT(AUTO) 2.02 MIL/uL (4.50-6.20); RED CELL DISTRIBUTION WIDTH 15.4 % (11.0-15.5); WHITE BLOOD COUNT (AUTO) 16.1 K/uL (4.8-10.8)
[2020-10-15 08:57] LABS: HEMATOCRIT 17.9 % (42-54)
[2020-10-15 09:36] LABS: LYMPHOCYTES % (MANUAL) 5 % (22-44); MAN.DIFF COMMENT-IMPRESSION MANUAL DIFFERENTIAL; MONOCYTES % (MANUAL) 1 % (2-9); SEGMENTED NEUTROPHILS % 94 % (40-70)
[2020-10-15 09:37] LABS: PLATELET MORPHOLOGY COMMENT ADEQUATE
[2020-10-15] MEDS ORDERED: 0.9% NACL 250ML 250 ML IV ONE ×2 (10:30→14:46)
[2020-10-15 12:13] VITALS: BP 120/66
[2020-10-15] MEDS ORDERED: VANCOMYCIN 1G 2 GM in 0.9% NACL 500ML IV.SOLN 500 ML IV SCH ×3 (13:00)
[2020-10-15] MEDS ORDERED: COMPOUND IV REFRIGERATED 1 EACH IVSOLN MISC PRN (13:15)
[2020-10-15 18:55] VITALS: BP 117/60
[2020-10-15] MEDS ORDERED: CLINIMIX-E 5%AA /D15%W 2000ML 2,000 ML IV ONE (19:45)
[2020-10-15 20:00] VITALS: BP 123/62
[2020-10-15] MEDS: VANCOMYCIN 1G 1.25 GM in 0.9% NACL 250ML 250 ML IV SCH (21:32)
[2020-10-15] MEDS: FAT EMULSIONS 20% 250ML 250 ML IV SCH (21:33)
[2020-10-16] VITALS (7 sets, daily range): BP systolic 121–136; BP diastolic 62–78
[2020-10-16] MEDS: MORPHINE 2 MG SYG IVP PRN ×6 (00:12→21:40)
[2020-10-16] MEDS: ZOSYN 3.375GM+NS 50ML 50 ML IV SCH ×3 (00:12→17:10)
[2020-10-16] MEDS: ONDANSETRON 4MG INJ IVP PRN ×3 (02:43→17:21)
[2020-10-16 04:11] LABS: HEMATOCRIT 23.1 % (42-54)
[2020-10-16] MEDS: METOCLOPRAMIDE 10 MG/2 ML VIAL IVP SCH ×3 (04:45→21:41)
[2020-10-16] MEDS: VANCOMYCIN 1G 1.25 GM in 0.9% NACL 250ML 250 ML IV SCH ×3 (04:45→22:28)
[2020-10-16] MEDS: FUROSEMIDE 20MG VIAL IV SCH ×3 (04:45→21:42)
[2020-10-16] MEDS: INSULIN HUMULIN R 100 UNIT/ML 3ML SQ SCH ×4 (05:21→18:00)
[2020-10-16] MEDS: FLUCONAZOLE 400 MG/NS 200 ML 200 ML IV SCH (08:15)
[2020-10-16] MEDS: FAMOTIDINE 20MG VIAL IV SCH ×2 (08:15→21:41)
[2020-10-16] MEDS: PANTOPRAZOLE 40 MG/VIAL IVP SCH ×2 (08:15→21:40)
[2020-10-16] MEDS: BALSAM PERU/CASTOR OIL 60 GM TUBE TP SCH (08:16)
[2020-10-16 12:24] LABS: HEMATOCRIT 22.4 % (42-54)
[2020-10-16] MEDS ORDERED: CLINIMIX-E 5%AA /D15%W 2000ML 2,000 ML IV ONE (19:45)
[2020-10-16] MEDS: FAT EMULSIONS 20% 250ML 250 ML IV SCH (22:20)
[2020-10-17] MEDS: ZOSYN 3.375GM+NS 50ML 50 ML IV SCH ×3 (00:20→18:22)
[2020-10-17] MEDS: MORPHINE 2 MG SYG IVP PRN ×7 (00:51→22:33)
[2020-10-17 03:29] VITALS: BP 115/68
[2020-10-17] MEDS: ONDANSETRON 4MG INJ IVP PRN ×3 (04:26→18:22)
[2020-10-17] MEDS: INSULIN HUMULIN R 100 UNIT/ML 3ML SQ SCH ×5 (06:00→23:10)
[2020-10-17] MEDS: FUROSEMIDE 20MG VIAL IV SCH ×3 (06:24→22:18)
[2020-10-17] MEDS: VANCOMYCIN 1G 1.25 GM in 0.9% NACL 250ML 250 ML IV SCH ×3 (06:24→22:33)
[2020-10-17] MEDS: METOCLOPRAMIDE 10 MG/2 ML VIAL IVP SCH ×3 (06:24→21:57)
[2020-10-17 06:32] LABS: HEMATOCRIT 25.1 % (42-54); MEAN CORPUSCULAR HEMOGLOBIN 28.7 pg (27.0-33.0); MEAN CORPUSCULAR HGB CONC 32.3 g/dL (32.0-36.0); RED BLOOD CELL COUNT(AUTO) 2.82 MIL/uL (4.50-6.20); RED CELL DISTRIBUTION WIDTH 15.6 % (11.0-15.5); WHITE BLOOD COUNT (AUTO) 8.7 K/uL (4.8-10.8)
[2020-10-17 06:40] LABS: CREATININE 0.8 mg/dL (0.5-1.5); POTASSIUM 3.7 mmol/L (3.5-5.1)
[2020-10-17 08:00] VITALS: BP 128/70
[2020-10-17] MEDS: PANTOPRAZOLE 40 MG/VIAL IVP SCH ×2 (09:50→21:57)
[2020-10-17] MEDS: FAMOTIDINE 20MG VIAL IV SCH ×2 (09:50→21:57)
[2020-10-17] MEDS: FLUCONAZOLE 400 MG/NS 200 ML 200 ML IV SCH (09:50)
[2020-10-17 11:58] VITALS: BP 137/73
[2020-10-17 16:00] VITALS: BP 133/76
[2020-10-17 20:06] VITALS: BP 133/71
[2020-10-17] MEDS ORDERED: ALTEPLASE 2MG VIAL 2 MG/VIAL VIAL IVCATH SCH (21:30)
[2020-10-17] MEDS: CLINIMIX-E4.25%AA/D5+LYT2000ML 2,000 ML IV SCH (21:54)
[2020-10-17 23:28] VITALS: BP 133/70
[2020-10-18] MEDS: ZOSYN 3.375GM+NS 50ML 50 ML IV SCH ×3 (00:07→16:54)
[2020-10-18] MEDS: ONDANSETRON 4MG INJ IVP PRN ×2 (03:36→17:03)
[2020-10-18] MEDS: MORPHINE 2 MG SYG IVP PRN ×6 (03:37→20:33)
[2020-10-18 03:59] VITALS: BP 122/62
[2020-10-18] MEDS: METOCLOPRAMIDE 10 MG/2 ML VIAL IVP SCH ×3 (05:13→20:06)
[2020-10-18] MEDS: FUROSEMIDE 20MG VIAL IV SCH ×3 (05:32→20:06)
[2020-10-18] MEDS: INSULIN HUMULIN R 100 UNIT/ML 3ML SQ SCH ×4 (06:00→23:27)
[2020-10-18 08:00] VITALS: BP 115/70
[2020-10-18] MEDS: VANCOMYCIN 1G 1.25 GM in 0.9% NACL 250ML 250 ML IV SCH (08:07)
[2020-10-18] MEDS: FAMOTIDINE 20MG VIAL IV SCH ×2 (10:21→20:07)
[2020-10-18] MEDS: PANTOPRAZOLE 40 MG/VIAL IVP SCH ×2 (10:21→20:07)
[2020-10-18 11:35] VITALS: BP 124/74
[2020-10-18] MEDS: FLUCONAZOLE 400 MG/NS 200 ML 200 ML IV SCH (11:46)
[2020-10-18] MEDS ORDERED: VANCOMYCIN 1G/250ML KIT 250 ML IV SCH (14:00)
[2020-10-18 16:00] VITALS: BP 136/71
[2020-10-18] MEDS ORDERED: VANCOMYCIN 1G 1.5 GM in 0.9% NACL 250ML 250 ML IV SCH (16:15)
[2020-10-18 19:44] VITALS: BP 136/73
[2020-10-18] MEDS: CLINIMIX-E4.25%AA/D5+LYT2000ML 2,000 ML IV SCH (20:42)
[2020-10-18 23:24] VITALS: BP 145/75
[2020-10-19] MEDS: ZOSYN 3.375GM+NS 50ML 50 ML IV SCH ×3 (00:50→16:48)
[2020-10-19] MEDS: ONDANSETRON 4MG INJ IVP PRN ×3 (01:31→14:28)
[2020-10-19] MEDS ORDERED: MORPHINE 2 MG SYG ONE (02:13)
[2020-10-19 03:39] VITALS: BP 120/70
[2020-10-19] MEDS: METOCLOPRAMIDE 10 MG/2 ML VIAL IVP SCH ×3 (05:49→21:24)
[2020-10-19] MEDS: FUROSEMIDE 20MG VIAL IV SCH ×3 (05:49→21:34)
[2020-10-19] MEDS: INSULIN HUMULIN R 100 UNIT/ML 3ML SQ SCH ×4 (05:50→23:36)
[2020-10-19] MEDS: VANCOMYCIN 1G/250ML KIT 250 ML IV SCH ×3 (05:50→22:21)
[2020-10-19 07:20] LABS: HEMATOCRIT 24.6 % (42-54); MEAN CORPUSCULAR HEMOGLOBIN 28.9 pg (27.0-33.0); MEAN CORPUSCULAR HGB CONC 32.1 g/dL (32.0-36.0); MEAN CORPUSCULAR VOLUME 90.1 fL (79-99); RED BLOOD CELL COUNT(AUTO) 2.73 MIL/uL (4.50-6.20); RED CELL DISTRIBUTION WIDTH 15.8 % (11.0-15.5); WHITE BLOOD COUNT (AUTO) 10.3 K/uL (4.8-10.8)
[2020-10-19 08:00] VITALS: BP 127/67
[2020-10-19 08:11] LABS: ALBUMIN 2.3 g/dL (3.5-5.0); BILIRUBIN,TOTAL 0.7 mg/dL (0.2-1.0); CREATININE 0.9 mg/dL (0.5-1.5); POTASSIUM 3.3 mmol/L (3.5-5.1); TOTAL PROTEIN, SERUM 7.7 g/dL (6.0-8.3)
[2020-10-19] MEDS: MORPHINE 2 MG SYG IVP PRN ×4 (08:20→22:20)
[2020-10-19] MEDS: FAMOTIDINE 20MG VIAL IV SCH ×2 (08:20→22:21)
[2020-10-19] MEDS: FLUCONAZOLE 400 MG/NS 200 ML 200 ML IV SCH (08:20)
[2020-10-19] MEDS: PANTOPRAZOLE 40 MG/VIAL IVP SCH ×2 (08:37→21:24)
[2020-10-19 12:00] VITALS: BP 133/74
[2020-10-19] MEDS ORDERED: LIDOCAINE HCL-MPF 1% 2ML VIAL IV PRN (14:15)
[2020-10-19 16:00] VITALS: BP 132/69
[2020-10-19] MEDS: POTASSIUM CHLORIDE 20MEQ/100ML 100 ML IV PRN (16:48)
[2020-10-19] MEDS ORDERED: CLINIMIX-E4.25%AA/D5+LYT2000ML 2,000 ML IV SCH (19:00)
[2020-10-19 20:15] VITALS: BP 133/69
[2020-10-19 23:30] VITALS: BP 124/68
[2020-10-20] MEDS: ZOSYN 3.375GM+NS 50ML 50 ML IV SCH ×3 (00:25→16:04)
[2020-10-20] MEDS: MORPHINE 2 MG SYG IVP PRN ×5 (02:36→20:39)
[2020-10-20] MEDS: POTASSIUM CHLORIDE 20MEQ/100ML 100 ML IV PRN (02:40)
[2020-10-20] MEDS: ONDANSETRON 4MG INJ IVP PRN ×3 (03:08→16:04)
[2020-10-20 04:11] VITALS: BP 126/74
[2020-10-20] MEDS: METOCLOPRAMIDE 10 MG/2 ML VIAL IVP SCH ×3 (05:27→20:37)
[2020-10-20] MEDS: FUROSEMIDE 20MG VIAL IV SCH ×3 (05:27→20:41)
[2020-10-20] MEDS: INSULIN HUMULIN R 100 UNIT/ML 3ML SQ SCH ×3 (05:27→18:00)
[2020-10-20 05:48] LABS: HEMATOCRIT 23.5 % (42-54); MEAN CORPUSCULAR HEMOGLOBIN 28.8 pg (27.0-33.0); MEAN CORPUSCULAR HGB CONC 31.5 g/dL (32.0-36.0); MEAN CORPUSCULAR VOLUME 91.4 fL (79-99); RED BLOOD CELL COUNT(AUTO) 2.57 MIL/uL (4.50-6.20); RED CELL DISTRIBUTION WIDTH 15.8 % (11.0-15.5); WHITE BLOOD COUNT (AUTO) 9.4 K/uL (4.8-10.8)
[2020-10-20 08:02] VITALS: BP 129/64
[2020-10-20] MEDS: FAMOTIDINE 20MG VIAL IV SCH (08:30)
[2020-10-20] MEDS: FLUCONAZOLE 400 MG/NS 200 ML 200 ML IV SCH (08:30)
[2020-10-20] MEDS: PANTOPRAZOLE 40 MG/VIAL IVP SCH (08:30)
[2020-10-20 10:59] VITALS: BP 126/68
[2020-10-20 16:10] VITALS: BP 140/76
[2020-10-20 20:00] VITALS: BP 120/67
[2020-10-20] MEDS ORDERED: CLINIMIX-E 5%AA /D15%W 2000ML 2,000 ML IV ONE (20:00)
[2020-10-20] MEDS ORDERED: VANCOMYCIN 1G/250ML KIT 250 ML IV ONE (20:31)
[2020-10-20] MEDS: VANCOMYCIN 1G/250ML KIT 250 ML IV SCH (22:52)
[2020-10-20 23:40] VITALS: BP 119/72
[2020-10-21] MEDS: ZOSYN 3.375GM+NS 50ML 50 ML IV SCH ×3 (00:27→17:30)
[2020-10-21] MEDS: MORPHINE 2 MG SYG IVP PRN ×3 (00:45→10:21)
[2020-10-21] MEDS: ONDANSETRON 4MG INJ IVP PRN ×2 (01:42→10:21)
[2020-10-21 03:42] VITALS: BP 120/71
[2020-10-21] MEDS: METOCLOPRAMIDE 10 MG/2 ML VIAL IVP SCH ×3 (04:55→21:37)
[2020-10-21] MEDS: INSULIN HUMULIN R 100 UNIT/ML 3ML SQ SCH ×4 (06:00→18:00)
[2020-10-21] MEDS: FUROSEMIDE 20MG VIAL IV SCH (06:58)
[2020-10-21] MEDS: VANCOMYCIN 1G/250ML KIT 250 ML IV SCH ×3 (06:59→21:37)
[2020-10-21 07:29] LABS: ALBUMIN 2.4 g/dL (3.5-5.0); BILIRUBIN,TOTAL 0.5 mg/dL (0.2-1.0); MAGNESIUM 2.5 mg/dL (1.80-2.40); POTASSIUM 3.6 mmol/L (3.5-5.1); TOTAL PROTEIN, SERUM 7.9 g/dL (6.0-8.3)
[2020-10-21 08:26] VITALS: BP 122/68
[2020-10-21] MEDS: FLUCONAZOLE 400 MG/NS 200 ML 200 ML IV SCH (10:20)
[2020-10-21 11:47] VITALS: BP 124/67
[2020-10-21] MEDS: CLINIMIX-E 5%AA /D15%W 2000ML 2,000 ML IV NR (12:45)
[2020-10-21] MEDS ORDERED: KETOROLAC 15MG/ML VIAL (15MG/ML) IV PRN (14:30)
[2020-10-21] MEDS ORDERED: VANCOMYCIN 1G 2 GM in 0.9% NACL 500ML IV.SOLN 500 ML IV SCH (14:45)
[2020-10-21] MEDS: MORPHINE 4 MG SYG IV PRN ×2 (15:30→19:46)
[2020-10-21 16:18] VITALS: BP 125/65
[2020-10-21] MEDS ORDERED: IOHEXOL 350 MG/ML 100ML INFUS..BTL IV ONE (17:50)
[2020-10-21 18:07] LABS: BASOPHILS % (AUTO) 0.2 % (0.0-5.0); EOSINOPHILS % (AUTO) 1.2 % (0.0-8.0); HEMATOCRIT 24.8 % (42-54); LYMPHOCYTES % (AUTO) 20.7 % (21.0-51.0); MEAN CORPUSCULAR HEMOGLOBIN 28.7 pg (27.0-33.0); MEAN CORPUSCULAR HGB CONC 30.6 g/dL (32.0-36.0); MEAN CORPUSCULAR VOLUME 93.6 fL (79-99); MONOCYTES % (AUTO) 8.8 % (3.0-13.0); NEUTROPHILS % (AUTO) 68.4 % (40.0-77.0); PLATELET COUNT (AUTO) 435 K/uL (130-400); RED BLOOD CELL COUNT(AUTO) 2.65 MIL/uL (4.50-6.20); RED CELL DISTRIBUTION WIDTH 15.9 % (11.0-15.5); WHITE BLOOD COUNT (AUTO) 8.9 K/uL (4.8-10.8)
[2020-10-21] MEDS ORDERED: ONDANSETRON 4MG INJ ONE (19:44)
[2020-10-21 20:00] VITALS: BP 131/74
[2020-10-22] VITALS: BP 129/73
[2020-10-22] MEDS: INSULIN HUMULIN R 100 UNIT/ML 3ML SQ SCH
[2020-10-22] MEDS: ONDANSETRON 4MG INJ IVP PRN (00:30)
[2020-10-22] MEDS: MORPHINE 4 MG SYG IV PRN ×6 (00:30→20:50)
[2020-10-22] MEDS: ZOSYN 3.375GM+NS 50ML 50 ML IV SCH ×3 (00:46→16:31)
[2020-10-22 03:52] LABS: BASOPHILS % (AUTO) 0.3 % (0.0-5.0); EOSINOPHILS % (AUTO) 0.9 % (0.0-8.0); HEMATOCRIT 25.3 % (42-54); MEAN CORPUSCULAR HEMOGLOBIN 28.2 pg (27.0-33.0); MEAN CORPUSCULAR HGB CONC 30.4 g/dL (32.0-36.0); MEAN CORPUSCULAR VOLUME 92.7 fL (79-99); MONOCYTES % (AUTO) 9.3 % (3.0-13.0); NEUTROPHILS % (AUTO) 71.7 % (40.0-77.0); PLATELET COUNT (AUTO) 464 K/uL (130-400); RED BLOOD CELL COUNT(AUTO) 2.73 MIL/uL (4.50-6.20); WHITE BLOOD COUNT (AUTO) 9.7 K/uL (4.8-10.8)
[2020-10-22 04:00] VITALS: BP 116/62
[2020-10-22 04:17] LABS: ALBUMIN 2.5 g/dL (3.5-5.0); BILIRUBIN,TOTAL 0.5 mg/dL (0.2-1.0); CREATININE 1.1 mg/dL (0.5-1.5); MAGNESIUM 2.4 mg/dL (1.80-2.40); POTASSIUM 3.7 mmol/L (3.5-5.1); TOTAL PROTEIN, SERUM 7.8 g/dL (6.0-8.3)
[2020-10-22] MEDS: METOCLOPRAMIDE 10 MG/2 ML VIAL IVP SCH ×3 (04:20→20:50)
[2020-10-22] MEDS: DEXTROSE 10%-WATER 1,000 ML IV SCH (04:20)
[2020-10-22] MEDS: VANCOMYCIN 1G/250ML KIT 250 ML IV SCH ×3 (05:46→22:39)
[2020-10-22 07:30] VITALS: BP 111/66
[2020-10-22] MEDS: FLUCONAZOLE 400 MG/NS 200 ML 200 ML IV SCH (08:17)
[2020-10-22 11:00] VITALS: BP 115/67
[2020-10-22] MEDS: CLINIMIX-E 5%AA /D15%W 2000ML 2,000 ML IV NR (12:35)
[2020-10-22 16:00] VITALS: BP 124/72
[2020-10-22] MEDS: FAMOTIDINE 20MG VIAL IV SCH (20:50)
[2020-10-22 21:14] VITALS: BP 139/72
[2020-10-23 00:11] VITALS: BP 128/73
[2020-10-23] MEDS: ZOSYN 3.375GM+NS 50ML 50 ML IV SCH ×3 (00:12→20:47)
[2020-10-23] MEDS: MORPHINE 4 MG SYG IV PRN ×6 (01:03→22:34)
[2020-10-23] MEDS: ONDANSETRON 4MG INJ IVP PRN ×3 (01:10→23:32)
[2020-10-23 04:08] VITALS: BP 130/73
[2020-10-23] MEDS: METOCLOPRAMIDE 10 MG/2 ML VIAL IVP SCH ×3 (05:21→20:47)
[2020-10-23] MEDS: VANCOMYCIN 1G/250ML KIT 250 ML IV SCH ×2 (05:22→20:48)
[2020-10-23 08:00] VITALS: BP 116/66
[2020-10-23] MEDS: FLUCONAZOLE 400 MG/NS 200 ML 200 ML IV SCH (08:48)
[2020-10-23] MEDS: FAMOTIDINE 20MG VIAL IV SCH ×2 (08:49→20:47)
[2020-10-23 11:00] VITALS: BP 126/71
[2020-10-23] MEDS ORDERED: DIATR MEGLU/DIATRIZOATE SODIUM 30 ML BOTTLE ONE (14:12)
[2020-10-23 16:00] VITALS: BP 134/73
[2020-10-23] MEDS: CLINIMIX-E 5%AA /D15%W 2000ML 2,000 ML IV NR (16:42)
[2020-10-23 20:24] VITALS: BP 129/71
[2020-10-24] VITALS (7 sets, daily range): BP systolic 123–154; BP diastolic 67–78
[2020-10-24] MEDS: MORPHINE 4 MG SYG IV PRN ×5 (02:30→19:48)
[2020-10-24 05:16] LABS: BASOPHILS % (AUTO) 0.2 % (0.0-5.0); EOSINOPHILS % (AUTO) 1.4 % (0.0-8.0); HEMATOCRIT 25.4 % (42-54); MEAN CORPUSCULAR HEMOGLOBIN 27.8 pg (27.0-33.0); MEAN CORPUSCULAR HGB CONC 29.5 g/dL (32.0-36.0); MEAN CORPUSCULAR VOLUME 94.1 fL (79-99); MONOCYTES % (AUTO) 9.3 % (3.0-13.0); NEUTROPHILS % (AUTO) 66.4 % (40.0-77.0); PLATELET COUNT (AUTO) 454 K/uL (130-400); RED CELL DISTRIBUTION WIDTH 15.8 % (11.0-15.5); WHITE BLOOD COUNT (AUTO) 8.8 K/uL (4.8-10.8)
[2020-10-24 05:48] LABS: ALBUMIN 2.2 g/dL (3.5-5.0); BILIRUBIN,TOTAL 0.4 mg/dL (0.2-1.0); CREATININE 0.9 mg/dL (0.5-1.5); MAGNESIUM 2.3 mg/dL (1.80-2.40); PHOSPHORUS 4.5 mg/dL (2.5-4.9); POTASSIUM 3.6 mmol/L (3.5-5.1); TOTAL PROTEIN, SERUM 7.3 g/dL (6.0-8.3)
[2020-10-24] MEDS: METOCLOPRAMIDE 10 MG/2 ML VIAL IVP SCH ×3 (06:32→19:47)
[2020-10-24] MEDS: ZOSYN 3.375GM+NS 50ML 50 ML IV SCH ×3 (06:32→19:47)
[2020-10-24] MEDS: FAMOTIDINE 20MG VIAL IV SCH ×2 (09:25→19:47)
[2020-10-24] MEDS: VANCOMYCIN 1G/250ML KIT 250 ML IV SCH ×2 (09:25→19:47)
[2020-10-24] MEDS: FLUCONAZOLE 400 MG/NS 200 ML 200 ML IV SCH (09:25)
[2020-10-24] MEDS: CLINIMIX-E 5%AA /D15%W 2000ML 2,000 ML IV NR (12:45)
[2020-10-24] MEDS: POTASSIUM CHLORIDE 20MEQ/100ML 100 ML IV PRN (21:24)
[2020-10-25] MEDS: MORPHINE 4 MG SYG IV PRN ×5 (00:03→20:40)
[2020-10-25] MEDS: ONDANSETRON 4MG INJ IVP PRN (02:45)
[2020-10-25 03:34] VITALS: BP 131/68
[2020-10-25 05:45] LABS: BASOPHILS % (AUTO) 0.1 % (0.0-5.0); EOSINOPHILS % (AUTO) 0.6 % (0.0-8.0); HEMATOCRIT 24.3 % (42-54); LYMPHOCYTES % (AUTO) 15.6 % (21.0-51.0); MEAN CORPUSCULAR HEMOGLOBIN 27.6 pg (27.0-33.0); MEAN CORPUSCULAR HGB CONC 29.6 g/dL (32.0-36.0); MEAN CORPUSCULAR VOLUME 93.1 fL (79-99); MONOCYTES % (AUTO) 8.1 % (3.0-13.0); NEUTROPHILS % (AUTO) 75.1 % (40.0-77.0); PLATELET COUNT (AUTO) 445 K/uL (130-400); RED BLOOD CELL COUNT(AUTO) 2.61 MIL/uL (4.50-6.20); RED CELL DISTRIBUTION WIDTH 15.6 % (11.0-15.5); WHITE BLOOD COUNT (AUTO) 9.9 K/uL (4.8-10.8)
[2020-10-25 06:11] LABS: ALBUMIN 2.3 g/dL (3.5-5.0); BILIRUBIN,TOTAL 0.3 mg/dL (0.2-1.0); CREATININE 0.9 mg/dL (0.5-1.5); MAGNESIUM 2.1 mg/dL (1.80-2.40); PHOSPHORUS 4.2 mg/dL (2.5-4.9); POTASSIUM 3.7 mmol/L (3.5-5.1); TOTAL PROTEIN, SERUM 7.2 g/dL (6.0-8.3)
[2020-10-25] MEDS: ZOSYN 3.375GM+NS 50ML 50 ML IV SCH ×3 (07:47→21:00)
[2020-10-25 07:58] VITALS: BP 123/70
[2020-10-25] MEDS: FAMOTIDINE 20MG VIAL IV SCH ×2 (08:14→20:37)
[2020-10-25] MEDS ORDERED: ALTEPLASE 2MG VIAL 2 MG/VIAL VIAL IVCATH SCH (08:15)
[2020-10-25] MEDS: VANCOMYCIN 1G/250ML KIT 250 ML IV SCH ×2 (10:43→20:46)
[2020-10-25 11:00] VITALS: BP 146/85
[2020-10-25] MEDS: HYDROMORPHONE 0.5 MG SYG (0.5MG/0.5ML) IVP PRN (12:18)
[2020-10-25] MEDS: FLUCONAZOLE 400 MG/NS 200 ML 200 ML IV SCH (12:20)
[2020-10-25] MEDS: METOCLOPRAMIDE 10 MG/2 ML VIAL IVP SCH ×3 (12:20→20:37)
[2020-10-25] MEDS: CLINIMIX-E 5%AA /D15%W 2000ML 2,000 ML IV NR (12:21)
[2020-10-25] MEDS: OCTREOTIDE ACETATE 100 MCG/ML AMP SQ SCH ×2 (15:57→20:43)
[2020-10-25] MEDS: FLUOXETINE HCL 20 MG CAPSULE PO SCH (15:57)
[2020-10-25 16:00] VITALS: BP 154/81
[2020-10-25 19:59] VITALS: BP 152/83
[2020-10-25] MEDS: FAT EMULSIONS 20% 250ML 250 ML IV SCH (20:43)
[2020-10-25 23:42] VITALS: BP 142/76
[2020-10-26] MEDS: HYDROMORPHONE 0.5 MG SYG (0.5MG/0.5ML) IVP PRN ×5 (01:23→23:35)
[2020-10-26 03:27] VITALS: BP 136/79
[2020-10-26] MEDS: ONDANSETRON 4MG INJ IVP PRN (03:33)
[2020-10-26] MEDS: MORPHINE 4 MG SYG IV PRN ×4 (03:41→12:58)
[2020-10-26] MEDS: OCTREOTIDE ACETATE 100 MCG/ML AMP SQ SCH ×4 (06:45→20:45)
[2020-10-26] MEDS: METOCLOPRAMIDE 10 MG/2 ML VIAL IVP SCH ×3 (06:45→20:38)
[2020-10-26] MEDS: ZOSYN 3.375GM+NS 50ML 50 ML IV SCH ×3 (06:45→20:38)
[2020-10-26 08:09] VITALS: BP 135/78
[2020-10-26] MEDS: FAMOTIDINE 20MG VIAL IV SCH ×2 (08:38→20:38)
[2020-10-26] MEDS: VANCOMYCIN 1G/250ML KIT 250 ML IV SCH ×2 (08:39→21:00)
[2020-10-26] MEDS: FLUOXETINE HCL 20 MG CAPSULE PO SCH (09:00)
[2020-10-26] MEDS: FLUCONAZOLE 400 MG/NS 200 ML 200 ML IV SCH (10:16)
[2020-10-26 11:11] VITALS: BP 135/72
[2020-10-26] MEDS: CLINIMIX-E 5%AA /D15%W 2000ML 2,000 ML IV NR (12:04)
[2020-10-26 16:07] VITALS: BP 126/73
[2020-10-26 19:46] VITALS: BP 144/86
[2020-10-26] MEDS ORDERED: 0.9% NACL 500ML IV.SOLN 500 ML IV ONE ×2 (20:16→20:34)
[2020-10-26] MEDS: FAT EMULSIONS 20% 250ML 250 ML IV SCH (20:39)
[2020-10-26] MEDS ORDERED: HYDROMORPHONE 0.5 MG SYG (0.5MG/0.5ML) ONE (23:26)
[2020-10-26 23:33] VITALS: BP 130/75
[2020-10-27] MEDS: ONDANSETRON 4MG INJ IVP PRN ×2 (02:13→20:28)
[2020-10-27 03:46] VITALS: BP 135/70
[2020-10-27] MEDS: OCTREOTIDE ACETATE 100 MCG/ML AMP SQ SCH ×3 (06:00→20:24)
[2020-10-27] MEDS: ZOSYN 3.375GM+NS 50ML 50 ML IV SCH ×3 (06:23→20:24)
[2020-10-27] MEDS: METOCLOPRAMIDE 10 MG/2 ML VIAL IVP SCH ×3 (06:23→20:24)
[2020-10-27 06:39] LABS: BASOPHILS % (AUTO) 0.3 % (0.0-5.0); EOSINOPHILS % (AUTO) 1.6 % (0.0-8.0); HEMATOCRIT 23.8 % (42-54); LYMPHOCYTES % (AUTO) 22.5 % (21.0-51.0); MEAN CORPUSCULAR HEMOGLOBIN 27.9 pg (27.0-33.0); MEAN CORPUSCULAR HGB CONC 30.3 g/dL (32.0-36.0); MEAN CORPUSCULAR VOLUME 92.2 fL (79-99); MONOCYTES % (AUTO) 7.6 % (3.0-13.0); NEUTROPHILS % (AUTO) 67.6 % (40.0-77.0); PLATELET COUNT (AUTO) 380 K/uL (130-400); RED BLOOD CELL COUNT(AUTO) 2.58 MIL/uL (4.50-6.20); RED CELL DISTRIBUTION WIDTH 14.7 % (11.0-15.5)
[2020-10-27 06:54] LABS: ALBUMIN 2.2 g/dL (3.5-5.0); BILIRUBIN,TOTAL 0.3 mg/dL (0.2-1.0); CREATININE 0.8 mg/dL (0.5-1.5); POTASSIUM 3.5 mmol/L (3.5-5.1)
[2020-10-27] MEDS: HYDROMORPHONE 0.5 MG SYG (0.5MG/0.5ML) IVP PRN ×5 (07:39→23:08)
[2020-10-27 08:02] VITALS: BP 130/76
[2020-10-27] MEDS: FLUOXETINE HCL 20 MG CAPSULE PO SCH (09:00)
[2020-10-27] MEDS: FAMOTIDINE 20MG VIAL IV SCH ×2 (11:12→20:24)
[2020-10-27] MEDS: FLUCONAZOLE 400 MG/NS 200 ML 200 ML IV SCH (11:12)
[2020-10-27] MEDS: VANCOMYCIN 1G/250ML KIT 250 ML IV SCH ×2 (11:25→20:25)
[2020-10-27 11:41] VITALS: BP 128/71
[2020-10-27] MEDS: CLINIMIX-E 5%AA /D15%W 2000ML 2,000 ML IV NR (13:17)
[2020-10-27 16:54] VITALS: BP 144/78
[2020-10-27 20:11] VITALS: BP 136/76
[2020-10-27] MEDS: FAT EMULSIONS 20% 250ML 250 ML IV SCH (20:25)
[2020-10-27 23:38] VITALS: BP 136/70
[2020-10-28] MEDS: ONDANSETRON 4MG INJ IVP PRN ×3 (02:10→14:47)
[2020-10-28] MEDS: HYDROMORPHONE 0.5 MG SYG (0.5MG/0.5ML) IVP PRN ×6 (03:06→23:03)
[2020-10-28 04:08] VITALS: BP 133/78
[2020-10-28] MEDS: ZOSYN 3.375GM+NS 50ML 50 ML IV SCH ×3 (04:20→19:33)
[2020-10-28] MEDS: METOCLOPRAMIDE 10 MG/2 ML VIAL IVP SCH ×3 (04:20→19:33)
[2020-10-28] MEDS: OCTREOTIDE ACETATE 100 MCG/ML AMP SQ SCH ×3 (06:33→19:33)
[2020-10-28 08:00] VITALS: BP 129/80
[2020-10-28] MEDS: FLUOXETINE HCL 20 MG CAPSULE PO SCH (09:00)
[2020-10-28] MEDS: FAMOTIDINE 20MG VIAL IV SCH ×2 (10:29→19:33)
[2020-10-28] MEDS: FLUCONAZOLE 400 MG/NS 200 ML 200 ML IV SCH (10:29)
[2020-10-28 12:00] VITALS: BP 134/57
[2020-10-28] MEDS: VANCOMYCIN 1G/250ML KIT 250 ML IV SCH ×2 (12:57→19:34)
[2020-10-28] MEDS: CLINIMIX-E 5%AA /D15%W 2000ML 2,000 ML IV NR (13:09)
[2020-10-28 16:00] VITALS: BP 121/47
[2020-10-28] MEDS: FAT EMULSIONS 20% 250ML 250 ML IV SCH (19:38)
[2020-10-28 20:15] VITALS: BP 132/79
[2020-10-28 23:38] VITALS: BP 139/77
[2020-10-29] MEDS: ONDANSETRON 4MG INJ IVP PRN ×3 (02:03→22:49)
[2020-10-29] MEDS: HYDROMORPHONE 0.5 MG SYG (0.5MG/0.5ML) IVP PRN ×6 (03:02→22:42)
[2020-10-29 04:08] VITALS: BP 136/74
[2020-10-29] MEDS: ZOSYN 3.375GM+NS 50ML 50 ML IV SCH ×3 (04:26→19:30)
[2020-10-29] MEDS: METOCLOPRAMIDE 10 MG/2 ML VIAL IVP SCH ×3 (04:26→19:30)
[2020-10-29 05:38] LABS: BASOPHILS % (AUTO) 0.4 % (0.0-5.0); EOSINOPHILS % (AUTO) 1.9 % (0.0-8.0); LYMPHOCYTES % (AUTO) 23.5 % (21.0-51.0); MEAN CORPUSCULAR HEMOGLOBIN 27.2 pg (27.0-33.0); MEAN CORPUSCULAR VOLUME 90.6 fL (79-99); MONOCYTES % (AUTO) 9.8 % (3.0-13.0); PLATELET COUNT (AUTO) 314 K/uL (130-400); RED BLOOD CELL COUNT(AUTO) 2.65 MIL/uL (4.50-6.20); RED CELL DISTRIBUTION WIDTH 14.3 % (11.0-15.5); WHITE BLOOD COUNT (AUTO) 5.7 K/uL (4.8-10.8)
[2020-10-29 05:48] LABS: CREATININE 0.8 mg/dL (0.5-1.5); POTASSIUM 3.6 mmol/L (3.5-5.1)
[2020-10-29] MEDS: POTASSIUM CHLORIDE 20MEQ/100ML 100 ML IV PRN (06:25)
[2020-10-29] MEDS: OCTREOTIDE ACETATE 100 MCG/ML AMP SQ SCH ×3 (06:25→19:30)
[2020-10-29 08:00] VITALS: BP 121/77
[2020-10-29] MEDS: FLUOXETINE HCL 20 MG CAPSULE PO SCH (09:00)
[2020-10-29] MEDS: FLUCONAZOLE 400 MG/NS 200 ML 200 ML IV SCH (10:34)
[2020-10-29] MEDS: VANCOMYCIN 1G/250ML KIT 250 ML IV SCH ×2 (10:34→19:31)
[2020-10-29] MEDS: FAMOTIDINE 20MG VIAL IV SCH ×2 (10:35→19:30)
[2020-10-29 11:38] VITALS: BP 133/78
[2020-10-29] MEDS: CLINIMIX-E 5%AA /D15%W 2000ML 2,000 ML IV NR (14:40)
[2020-10-29 16:35] VITALS: BP 126/71
[2020-10-29] MEDS: FAT EMULSIONS 20% 250ML 250 ML IV SCH (19:31)
[2020-10-29 20:23] VITALS: BP 128/78
[2020-10-30] VITALS (7 sets, daily range): BP systolic 119–154; BP diastolic 70–90
[2020-10-30] MEDS: HYDROMORPHONE 0.5 MG SYG (0.5MG/0.5ML) IVP PRN ×5 (02:57→22:40)
[2020-10-30] MEDS: METOCLOPRAMIDE 10 MG/2 ML VIAL IVP SCH ×3 (04:45→21:24)
[2020-10-30] MEDS: ZOSYN 3.375GM+NS 50ML 50 ML IV SCH ×3 (04:45→21:24)
[2020-10-30] MEDS: ONDANSETRON 4MG INJ IVP PRN (05:22)
[2020-10-30] MEDS: OCTREOTIDE ACETATE 100 MCG/ML AMP SQ SCH ×3 (06:09→21:24)
[2020-10-30] MEDS: FLUOXETINE HCL 20 MG CAPSULE PO SCH (09:00)
[2020-10-30] MEDS: VANCOMYCIN 1G/250ML KIT 250 ML IV SCH (09:00)
[2020-10-30] MEDS: FAMOTIDINE 20MG VIAL IV SCH ×2 (10:49→21:24)
[2020-10-30] MEDS ORDERED: VANCOMYCIN 1G 2 GM in 0.9% NACL 500ML IV.SOLN 500 ML IV SCH (12:00)
[2020-10-30] MEDS ORDERED: COMPOUND IV REFRIGERATED 1 EACH IVSOLN MISC PRN (12:15)
[2020-10-30] MEDS: FLUCONAZOLE 400 MG/NS 200 ML 200 ML IV SCH (12:54)
[2020-10-30] MEDS ORDERED: ALTEPLASE 2MG VIAL 2 MG/VIAL VIAL IVCATH SCH (14:15)
[2020-10-30] MEDS ORDERED: HYDROMORPHONE 0.5 MG SYG (0.5MG/0.5ML) ONE (14:32)
[2020-10-30] MEDS ORDERED: VANCOMYCIN 1G 1.75 GM in 0.9% NACL 250ML 250 ML IV SCH (18:00)
[2020-10-30] MEDS ORDERED: CLINIMIX-E4.25%AA/D5+LYT2000ML 2,000 ML IV SCH (19:00)
[2020-10-30] MEDS: FAT EMULSIONS 20% 250ML 250 ML IV SCH (21:24)
[2020-10-31] MEDS: HYDROMORPHONE 0.5 MG SYG (0.5MG/0.5ML) IVP PRN ×6 (02:38→23:00)
[2020-10-31 04:00] VITALS: BP 128/77
[2020-10-31] MEDS: ZOSYN 3.375GM+NS 50ML 50 ML IV SCH ×3 (04:31→21:40)
[2020-10-31] MEDS: METOCLOPRAMIDE 10 MG/2 ML VIAL IVP SCH ×3 (04:32→21:40)
[2020-10-31 04:47] LABS: HEMATOCRIT 23.9 % (42-54); MEAN CORPUSCULAR HEMOGLOBIN 27.4 pg (27.0-33.0); MEAN CORPUSCULAR VOLUME 88.5 fL (79-99); RED BLOOD CELL COUNT(AUTO) 2.7 MIL/uL (4.50-6.20); RED CELL DISTRIBUTION WIDTH 14.4 % (11.0-15.5); WHITE BLOOD COUNT (AUTO) 7.1 K/uL (4.8-10.8)
[2020-10-31 05:20] LABS: CREATININE 0.8 mg/dL (0.5-1.5); POTASSIUM 3.7 mmol/L (3.5-5.1)
[2020-10-31] MEDS: VANCOMYCIN 1G 1.75 GM in 0.9% NACL 250ML 250 ML IV SCH ×2 (05:44→18:09)
[2020-10-31] MEDS: OCTREOTIDE ACETATE 100 MCG/ML AMP SQ SCH ×3 (05:45→21:40)
[2020-10-31] MEDS: ONDANSETRON 4MG INJ IVP PRN ×2 (06:33→09:39)
[2020-10-31 08:00] VITALS: BP 118/74
[2020-10-31] MEDS: FLUOXETINE HCL 20 MG CAPSULE PO SCH ×2 (09:00→09:36)
[2020-10-31] MEDS: FLUCONAZOLE 400 MG/NS 200 ML 200 ML IV SCH (09:36)
[2020-10-31] MEDS: FAMOTIDINE 20MG VIAL IV SCH ×2 (09:36→21:40)
[2020-10-31 12:00] VITALS: BP 128/69
[2020-10-31 16:00] VITALS: BP 120/80
[2020-10-31 19:44] VITALS: BP 121/76
[2020-10-31] MEDS: FAT EMULSIONS 20% 250ML 250 ML IV SCH (21:39)
[2020-10-31] MEDS: FENTANYL 25 MCG/HR PATCH TD SCH (21:42)
[2020-10-31] MEDS ORDERED: 0.9% NACL 500ML IV.SOLN 500 ML IV ONE (22:04)
[2020-11-01] VITALS (7 sets, daily range): BP systolic 121–132; BP diastolic 67–74
[2020-11-01] MEDS: HYDROMORPHONE 0.5 MG SYG (0.5MG/0.5ML) IVP PRN ×5 (03:15→21:29)
[2020-11-01] MEDS: METOCLOPRAMIDE 10 MG/2 ML VIAL IVP SCH ×3 (05:38→21:37)
[2020-11-01] MEDS: ZOSYN 3.375GM+NS 50ML 50 ML IV SCH ×3 (05:38→21:43)
[2020-11-01] MEDS: OCTREOTIDE ACETATE 100 MCG/ML AMP SQ SCH ×3 (05:39→22:00)
[2020-11-01] MEDS: VANCOMYCIN 1G 1.75 GM in 0.9% NACL 250ML 250 ML IV SCH (06:00)
[2020-11-01] MEDS: FAMOTIDINE 20MG VIAL IV SCH ×2 (08:54→21:36)
[2020-11-01] MEDS: ONDANSETRON 4MG INJ IVP PRN ×2 (08:57→17:16)
[2020-11-01] MEDS: FLUOXETINE HCL 20 MG CAPSULE PO SCH (08:58)
[2020-11-01] MEDS: FLUCONAZOLE 400 MG/NS 200 ML 200 ML IV SCH (08:58)
[2020-11-01] MEDS ORDERED: CLINIMIX-E4.25%AA/D5+LYT2000ML 2,000 ML IV ONE (20:00)
[2020-11-01] MEDS: FAT EMULSIONS 20% 250ML 250 ML IV SCH (21:37)
[2020-11-02] MEDS: HYDROMORPHONE 0.5 MG SYG (0.5MG/0.5ML) IVP PRN ×6 (01:43→21:41)
[2020-11-02] MEDS: ONDANSETRON 4MG INJ IVP PRN ×2 (03:32→10:16)
[2020-11-02 04:00] VITALS: BP 131/65
[2020-11-02] MEDS: ZOSYN 3.375GM+NS 50ML 50 ML IV SCH ×3 (05:15→20:51)
[2020-11-02] MEDS: METOCLOPRAMIDE 10 MG/2 ML VIAL IVP SCH ×3 (05:15→20:50)
[2020-11-02] MEDS: OCTREOTIDE ACETATE 100 MCG/ML AMP SQ SCH ×3 (05:21→20:50)
[2020-11-02 06:21] LABS: CREATININE 0.9 mg/dL (0.5-1.5); POTASSIUM 3.5 mmol/L (3.5-5.1)
[2020-11-02 08:00] VITALS: BP 123/68
[2020-11-02] MEDS: FLUOXETINE HCL 20 MG CAPSULE PO SCH ×2 (09:00→09:36)
[2020-11-02] MEDS: FAMOTIDINE 20MG VIAL IV SCH ×2 (09:36→20:51)
[2020-11-02] MEDS: FLUCONAZOLE 400 MG/NS 200 ML 200 ML IV SCH (09:36)
[2020-11-02 11:36] VITALS: BP 123/76
[2020-11-02 16:00] VITALS: BP 117/71
[2020-11-02] MEDS ORDERED: CLINIMIX-E4.25%AA/D5+LYT2000ML 2,000 ML IV ONE (18:00)
[2020-11-02 20:04] VITALS: BP 116/66
[2020-11-02] MEDS: FAT EMULSIONS 20% 250ML 250 ML IV SCH (20:51)
[2020-11-02 23:45] VITALS: BP 120/71
[2020-11-03] MEDS: HYDROMORPHONE 0.5 MG SYG (0.5MG/0.5ML) IVP PRN ×5 (01:47→20:30)
[2020-11-03 04:06] VITALS: BP 127/64
[2020-11-03] MEDS: OCTREOTIDE ACETATE 100 MCG/ML AMP SQ SCH ×3 (05:43→20:45)
[2020-11-03] MEDS: ZOSYN 3.375GM+NS 50ML 50 ML IV SCH ×3 (05:43→20:45)
[2020-11-03] MEDS: METOCLOPRAMIDE 10 MG/2 ML VIAL IVP SCH ×3 (05:43→20:45)
[2020-11-03 06:38] LABS: ALBUMIN 2.4 g/dL (3.5-5.0); BILIRUBIN,TOTAL 0.3 mg/dL (0.2-1.0); CREATININE 0.8 mg/dL (0.5-1.5); POTASSIUM 3.5 mmol/L (3.5-5.1); TOTAL PROTEIN, SERUM 7.2 g/dL (6.0-8.3)
[2020-11-03 08:00] VITALS: BP 123/78
[2020-11-03] MEDS: FLUCONAZOLE 400 MG/NS 200 ML 200 ML IV SCH (08:57)
[2020-11-03] MEDS: FAMOTIDINE 20MG VIAL IV SCH ×2 (08:58→20:45)
[2020-11-03] MEDS: FLUOXETINE HCL 20 MG CAPSULE PO SCH (08:58)
[2020-11-03] MEDS ORDERED: MORPHINE 4 MG SYG IV SCH (09:00)
[2020-11-03] MEDS ORDERED: MORPHINE 4 MG SYG ONE (09:02)
[2020-11-03] MEDS: ONDANSETRON 4MG INJ IVP PRN (10:43)
[2020-11-03] MEDS ORDERED: PHARMACY COMMUNICATION MISC SCH (11:00)
[2020-11-03 11:28] VITALS: BP 121/75
[2020-11-03 16:00] VITALS: BP 114/71
[2020-11-03] MEDS: PROCALAMINE IV SOLUTION 1,000 ML IV SCH ×2 (16:38→23:25)
[2020-11-03 19:55] VITALS: BP 119/75
[2020-11-03] MEDS: FAT EMULSIONS 20% 250ML 250 ML IV SCH (20:45)
[2020-11-03] MEDS: FENTANYL 25 MCG/HR PATCH TD SCH (20:46)
[2020-11-03 23:33] VITALS: BP 127/77
[2020-11-04] VITALS (10 sets, daily range): BP systolic 107–131; BP diastolic 61–81
[2020-11-04] MEDS: HYDROMORPHONE 0.5 MG SYG (0.5MG/0.5ML) IVP PRN ×5 (00:26→17:12)
[2020-11-04] MEDS: METOCLOPRAMIDE 10 MG/2 ML VIAL IVP SCH ×3 (03:49→20:12)
[2020-11-04] MEDS: ZOSYN 3.375GM+NS 50ML 50 ML IV SCH ×3 (03:49→20:12)
[2020-11-04 04:29] LABS: HEMATOCRIT 22.4 % (42-54); MEAN CORPUSCULAR HEMOGLOBIN 27.1 pg (27.0-33.0); MEAN CORPUSCULAR HGB CONC 31.3 g/dL (32.0-36.0); MEAN CORPUSCULAR VOLUME 86.8 fL (79-99); RED BLOOD CELL COUNT(AUTO) 2.58 MIL/uL (4.50-6.20); RED CELL DISTRIBUTION WIDTH 14.4 % (11.0-15.5); WHITE BLOOD COUNT (AUTO) 5.8 K/uL (4.8-10.8)
[2020-11-04] MEDS: OCTREOTIDE ACETATE 100 MCG/ML AMP SQ SCH ×3 (04:47→20:12)
[2020-11-04] MEDS: PROCALAMINE IV SOLUTION 1,000 ML IV SCH ×3 (04:47→23:30)
[2020-11-04 04:57] LABS: ALBUMIN 2.4 g/dL (3.5-5.0); BILIRUBIN,TOTAL 0.3 mg/dL (0.2-1.0); CREATININE 0.8 mg/dL (0.5-1.5); MAGNESIUM 2.4 mg/dL (1.80-2.40); POTASSIUM 3.5 mmol/L (3.5-5.1); TOTAL PROTEIN, SERUM 7.1 g/dL (6.0-8.3)
[2020-11-04] MEDS: POTASSIUM CHLORIDE 20MEQ/100ML 100 ML IV PRN (06:11)
[2020-11-04] MEDS ORDERED: VANCOMYCIN 1G 1.75 GM in 0.9% NACL 250ML 250 ML IV SCH ×2 (07:00→09:00)
[2020-11-04] MEDS: FAMOTIDINE 20MG VIAL IV SCH ×2 (08:42→20:12)
[2020-11-04] MEDS: FLUCONAZOLE 400 MG/NS 200 ML 200 ML IV SCH (08:42)
[2020-11-04] MEDS: FLUOXETINE HCL 20 MG CAPSULE PO SCH (08:42)
[2020-11-04] MEDS: ONDANSETRON 4MG INJ IVP PRN ×2 (09:07→09:08)
[2020-11-04] MEDS ORDERED: 0.9% NACL 250ML 250 ML IV ONE (12:47)
[2020-11-04] MEDS: VANCOMYCIN 1G 1.25 GM in 0.9% NACL 250ML 250 ML IV SCH ×3 (14:00→23:22)
[2020-11-04 18:36] LABS: HEMATOCRIT 25.7 % (42-54)
[2020-11-04] MEDS: FAT EMULSIONS 20% 250ML 250 ML IV SCH (20:11)
[2020-11-04] MEDS ORDERED: HYDROMORPHONE 0.5 MG SYG (0.5MG/0.5ML) ONE (23:39)
[2020-11-05] MEDS: ZOSYN 3.375GM+NS 50ML 50 ML IV SCH ×3 (04:16→22:59)
[2020-11-05] MEDS: METOCLOPRAMIDE 10 MG/2 ML VIAL IVP SCH ×3 (04:17→22:15)
[2020-11-05] MEDS: HYDROMORPHONE 0.5 MG SYG (0.5MG/0.5ML) IVP PRN ×5 (04:17→22:14)
[2020-11-05] MEDS: PROCALAMINE IV SOLUTION 1,000 ML IV SCH ×4 (05:01→17:52)
[2020-11-05] MEDS: OCTREOTIDE ACETATE 100 MCG/ML AMP SQ SCH ×3 (05:51→23:01)
[2020-11-05] MEDS: VANCOMYCIN 1G 1.25 GM in 0.9% NACL 250ML 250 ML IV SCH ×3 (05:52→23:01)
[2020-11-05 06:02] VITALS: BP 120/70
[2020-11-05 06:30] LABS: HEMATOCRIT 26.4 % (42-54); MEAN CORPUSCULAR HEMOGLOBIN 28.2 pg (27.0-33.0); MEAN CORPUSCULAR HGB CONC 33.3 g/dL (32.0-36.0); MEAN CORPUSCULAR VOLUME 84.6 fL (79-99); RED BLOOD CELL COUNT(AUTO) 3.12 MIL/uL (4.50-6.20); RED CELL DISTRIBUTION WIDTH 13.8 % (11.0-15.5); WHITE BLOOD COUNT (AUTO) 5.6 K/uL (4.8-10.8)
[2020-11-05 06:39] LABS: CREATININE 0.8 mg/dL (0.5-1.5); MAGNESIUM 1.9 mg/dL (1.80-2.40); POTASSIUM 3.7 mmol/L (3.5-5.1)
[2020-11-05 08:00] VITALS: BP 121/75
[2020-11-05] MEDS: FAMOTIDINE 20MG VIAL IV SCH ×2 (08:35→22:15)
[2020-11-05] MEDS: FLUCONAZOLE 400 MG/NS 200 ML 200 ML IV SCH (08:36)
[2020-11-05] MEDS: FLUOXETINE HCL 20 MG CAPSULE PO SCH (08:37)
[2020-11-05] MEDS: ONDANSETRON 4MG INJ IVP PRN ×2 (11:37→23:36)
[2020-11-05 12:00] VITALS: BP 115/70
[2020-11-05 16:00] VITALS: BP 130/79
[2020-11-05 19:29] VITALS: BP 115/75
[2020-11-05] MEDS: FAT EMULSIONS 20% 250ML 250 ML IV SCH ×2 (22:13→22:59)
[2020-11-06] VITALS (7 sets, daily range): BP systolic 119–140; BP diastolic 76–81
[2020-11-06] MEDS: HYDROMORPHONE 0.5 MG SYG (0.5MG/0.5ML) IVP PRN ×7 (02:17→23:23)
[2020-11-06] MEDS: METOCLOPRAMIDE 10 MG/2 ML VIAL IVP SCH ×3 (04:45→19:19)
[2020-11-06] MEDS: OCTREOTIDE ACETATE 100 MCG/ML AMP SQ SCH ×3 (04:46→19:19)
[2020-11-06] MEDS: ZOSYN 3.375GM+NS 50ML 50 ML IV SCH ×3 (04:46→19:20)
[2020-11-06] MEDS: PROCALAMINE IV SOLUTION 1,000 ML IV SCH ×2 (05:21→19:11)
[2020-11-06] MEDS: VANCOMYCIN 1G 1.25 GM in 0.9% NACL 250ML 250 ML IV SCH ×3 (06:00→21:18)
[2020-11-06] MEDS: FLUOXETINE HCL 20 MG CAPSULE PO SCH (09:00)
[2020-11-06] MEDS: FLUCONAZOLE 400 MG/NS 200 ML 200 ML IV SCH (09:11)
[2020-11-06] MEDS: FAMOTIDINE 20MG VIAL IV SCH ×2 (09:11→19:19)
[2020-11-06] MEDS: ONDANSETRON 4MG INJ IVP PRN (10:26)
[2020-11-06] MEDS: FAT EMULSIONS 20% 250ML 250 ML IV SCH (21:19)
[2020-11-07] MEDS: ONDANSETRON 4MG INJ IVP PRN ×3 (02:40→16:15)
[2020-11-07] MEDS: METOCLOPRAMIDE 10 MG/2 ML VIAL IVP SCH ×3 (03:27→20:18)
[2020-11-07] MEDS: HYDROMORPHONE 0.5 MG SYG (0.5MG/0.5ML) IVP PRN ×5 (03:28→20:52)
[2020-11-07] MEDS: ZOSYN 3.375GM+NS 50ML 50 ML IV SCH ×3 (03:28→20:19)
[2020-11-07 04:15] VITALS: BP 159/57
[2020-11-07] MEDS: VANCOMYCIN 1G 1.25 GM in 0.9% NACL 250ML 250 ML IV SCH ×3 (05:37→20:45)
[2020-11-07 07:15] VITALS: BP 118/76
[2020-11-07] MEDS: FAMOTIDINE 20MG VIAL IV SCH ×2 (07:25→20:19)
[2020-11-07] MEDS: FLUCONAZOLE 400 MG/NS 200 ML 200 ML IV SCH (07:25)
[2020-11-07 08:51] LABS: HEMATOCRIT 26.2 % (42-54); MEAN CORPUSCULAR HEMOGLOBIN 27.5 pg (27.0-33.0); MEAN CORPUSCULAR HGB CONC 32.4 g/dL (32.0-36.0); MEAN CORPUSCULAR VOLUME 84.8 fL (79-99); NUCLEATED RED BLOOD CELLS 0.4 % (0.0-0.19); RED BLOOD CELL COUNT(AUTO) 3.09 MIL/uL (4.50-6.20); RED CELL DISTRIBUTION WIDTH 13.8 % (11.0-15.5); WHITE BLOOD COUNT (AUTO) 5.2 K/uL (4.8-10.8)
[2020-11-07] MEDS: FLUOXETINE HCL 20 MG CAPSULE PO SCH (09:00)
[2020-11-07] MEDS: PROCALAMINE IV SOLUTION 1,000 ML IV SCH ×2 (09:00→18:25)
[2020-11-07 09:04] LABS: CREATININE 0.8 mg/dL (0.5-1.5); MAGNESIUM 1.8 mg/dL (1.80-2.40); POTASSIUM 3.8 mmol/L (3.5-5.1)
[2020-11-07 11:00] VITALS: BP 135/78
[2020-11-07] MEDS: OCTREOTIDE ACETATE 100 MCG/ML AMP SQ SCH ×2 (14:33→20:19)
[2020-11-07 16:00] VITALS: BP 126/82
[2020-11-07 19:43] VITALS: BP 121/79
[2020-11-07 23:45] VITALS: BP 129/81
[2020-11-08] MEDS: HYDROMORPHONE 0.5 MG SYG (0.5MG/0.5ML) IVP PRN ×6 (00:15→22:04)
[2020-11-08] MEDS: ONDANSETRON 4MG INJ IVP PRN ×3 (00:17→14:48)
[2020-11-08 04:06] VITALS: BP 142/85
[2020-11-08] MEDS: METOCLOPRAMIDE 10 MG/2 ML VIAL IVP SCH ×3 (04:14→14:47)
[2020-11-08] MEDS: OCTREOTIDE ACETATE 100 MCG/ML AMP SQ SCH ×3 (04:15→22:04)
[2020-11-08] MEDS: ZOSYN 3.375GM+NS 50ML 50 ML IV SCH ×3 (04:15→20:34)
[2020-11-08] MEDS: VANCOMYCIN 1G 1.25 GM in 0.9% NACL 250ML 250 ML IV SCH ×3 (06:38→20:40)
[2020-11-08] MEDS: PROCALAMINE IV SOLUTION 1,000 ML IV SCH ×2 (06:41→20:36)
[2020-11-08 07:00] VITALS: BP 120/76
[2020-11-08 11:00] VITALS: BP 137/87
[2020-11-08] MEDS: FLUOXETINE HCL 20 MG CAPSULE PO SCH ×2 (11:54→12:08)
[2020-11-08] MEDS: FAMOTIDINE 20MG VIAL IV SCH ×2 (11:54→20:34)
[2020-11-08] MEDS: FLUCONAZOLE 400 MG/NS 200 ML 200 ML IV SCH (11:54)
[2020-11-08 16:00] VITALS: BP 149/89
[2020-11-08 19:33] VITALS: BP 128/81
[2020-11-08] MEDS: FAT EMULSIONS 20% 250ML 250 ML IV SCH (20:36)
[2020-11-08 23:50] VITALS: BP 129/79
[2020-11-09] MEDS: HYDROMORPHONE 0.5 MG SYG (0.5MG/0.5ML) IVP PRN ×6 (02:03→22:54)
[2020-11-09] MEDS: METOCLOPRAMIDE 10 MG/2 ML VIAL IVP SCH ×3 (04:34→21:54)
[2020-11-09] MEDS: ZOSYN 3.375GM+NS 50ML 50 ML IV SCH ×3 (04:34→21:53)
[2020-11-09] MEDS: ONDANSETRON 4MG INJ IVP PRN (04:46)
[2020-11-09 04:47] VITALS: BP 129/80
[2020-11-09] MEDS: OCTREOTIDE ACETATE 100 MCG/ML AMP SQ SCH ×3 (06:03→21:55)
[2020-11-09 06:08] LABS: MEAN CORPUSCULAR HEMOGLOBIN 27.6 pg (27.0-33.0); MEAN CORPUSCULAR HGB CONC 32.8 g/dL (32.0-36.0); MEAN CORPUSCULAR VOLUME 84.2 fL (79-99); RED BLOOD CELL COUNT(AUTO) 2.97 MIL/uL (4.50-6.20); RED CELL DISTRIBUTION WIDTH 13.6 % (11.0-15.5); WHITE BLOOD COUNT (AUTO) 4.3 K/uL (4.8-10.8)
[2020-11-09 06:34] LABS: CREATININE 0.9 mg/dL (0.5-1.5); MAGNESIUM 1.8 mg/dL (1.80-2.40); PHOSPHORUS 3.5 mg/dL (2.5-4.9); POTASSIUM 3.5 mmol/L (3.5-5.1)
[2020-11-09 07:00] VITALS: BP 126/86
[2020-11-09] MEDS: VANCOMYCIN 1G 1.25 GM in 0.9% NACL 250ML 250 ML IV SCH ×3 (09:00→21:54)
[2020-11-09 11:00] VITALS: BP 124/71
[2020-11-09] MEDS: PROCALAMINE IV SOLUTION 1,000 ML IV SCH ×2 (12:01→21:55)
[2020-11-09] MEDS: FLUCONAZOLE 400 MG/NS 200 ML 200 ML IV SCH (12:14)
[2020-11-09] MEDS: FAMOTIDINE 20MG VIAL IV SCH ×2 (12:14→21:54)
[2020-11-09 16:00] VITALS: BP 122/78
[2020-11-09 19:59] VITALS: BP 130/79
[2020-11-09] MEDS: FAT EMULSIONS 20% 250ML 250 ML IV SCH (21:54)
[2020-11-09 23:46] VITALS: BP 125/75
[2020-11-10] MEDS ORDERED: HYDROMORPHONE 1 MG INJ ONE ×2 (02:56→07:27)
[2020-11-10] MEDS: ZOSYN 3.375GM+NS 50ML 50 ML IV SCH ×3 (03:05→20:58)
[2020-11-10] MEDS: METOCLOPRAMIDE 10 MG/2 ML VIAL IVP SCH ×3 (03:05→20:58)
[2020-11-10] MEDS: ONDANSETRON 4MG INJ IVP PRN ×2 (03:05→09:55)
[2020-11-10 03:30] VITALS: BP 144/89
[2020-11-10] MEDS: PROCALAMINE IV SOLUTION 1,000 ML IV SCH ×2 (06:00→18:00)
[2020-11-10] MEDS: OCTREOTIDE ACETATE 100 MCG/ML AMP SQ SCH ×3 (06:02→21:24)
[2020-11-10 06:03] LABS: BASOPHILS % (AUTO) 0.2 % (0.0-5.0); EOSINOPHILS % (AUTO) 1.3 % (0.0-8.0); HEMATOCRIT 25.5 % (42-54); LYMPHOCYTES % (AUTO) 29.6 % (21.0-51.0); MEAN CORPUSCULAR HEMOGLOBIN 27.3 pg (27.0-33.0); MEAN CORPUSCULAR HGB CONC 32.5 g/dL (32.0-36.0); MEAN CORPUSCULAR VOLUME 83.9 fL (79-99); MONOCYTES % (AUTO) 11.6 % (3.0-13.0); NEUTROPHILS % (AUTO) 56.2 % (40.0-77.0); PLATELET COUNT (AUTO) 171 K/uL (130-400); RED BLOOD CELL COUNT(AUTO) 3.04 MIL/uL (4.50-6.20); RED CELL DISTRIBUTION WIDTH 13.4 % (11.0-15.5); WHITE BLOOD COUNT (AUTO) 4.6 K/uL (4.8-10.8)
[2020-11-10 06:22] LABS: CREATININE 0.9 mg/dL (0.5-1.5); POTASSIUM 3.4 mmol/L (3.5-5.1)
[2020-11-10 08:03] VITALS: BP 128/84
[2020-11-10] MEDS: FLUOXETINE HCL 20 MG CAPSULE PO SCH (09:00)
[2020-11-10] MEDS: VANCOMYCIN 1G 1.25 GM in 0.9% NACL 250ML 250 ML IV SCH ×2 (09:00→21:19)
[2020-11-10] MEDS: FAMOTIDINE 20MG VIAL IV SCH ×2 (09:55→20:58)
[2020-11-10] MEDS: FLUCONAZOLE 400 MG/NS 200 ML 200 ML IV SCH (09:56)
[2020-11-10] MEDS ORDERED: DIATR MEGLU/DIATRIZOATE SODIUM 30 ML BOTTLE ONE (12:04)
[2020-11-10 12:13] VITALS: BP 125/79
[2020-11-10] MEDS: HYDROMORPHONE 0.5 MG SYG (0.5MG/0.5ML) IVP PRN ×2 (12:41→16:11)
[2020-11-10 19:40] VITALS: BP 125/72
[2020-11-10] MEDS: FAT EMULSIONS 20% 250ML 250 ML IV SCH (20:58)
[2020-11-11] VITALS (7 sets, daily range): BP systolic 121–147; BP diastolic 82–88
[2020-11-11] MEDS: ONDANSETRON 4MG INJ IVP PRN (00:02)
[2020-11-11] MEDS: HYDROMORPHONE 0.5 MG SYG (0.5MG/0.5ML) IVP PRN ×7 (00:04→21:07)
[2020-11-11] MEDS: DEXTROSE 10%-WATER 1,000 ML IV SCH (03:19)
[2020-11-11] MEDS: ZOSYN 3.375GM+NS 50ML 50 ML IV SCH ×3 (04:05→20:46)
[2020-11-11] MEDS: METOCLOPRAMIDE 10 MG/2 ML VIAL IVP SCH ×3 (04:05→20:46)
[2020-11-11 05:01] LABS: HEMATOCRIT 26.1 % (42-54); MEAN CORPUSCULAR HEMOGLOBIN 27.2 pg (27.0-33.0); MEAN CORPUSCULAR VOLUME 82.6 fL (79-99); RED BLOOD CELL COUNT(AUTO) 3.16 MIL/uL (4.50-6.20); RED CELL DISTRIBUTION WIDTH 13.4 % (11.0-15.5); WHITE BLOOD COUNT (AUTO) 3.3 K/uL (4.8-10.8)
[2020-11-11 05:13] LABS: CREATININE 0.9 mg/dL (0.5-1.5); POTASSIUM 3.1 mmol/L (3.5-5.1)
[2020-11-11] MEDS: OCTREOTIDE ACETATE 100 MCG/ML AMP SQ SCH ×3 (06:30→21:07)
[2020-11-11] MEDS: PROCALAMINE IV SOLUTION 1,000 ML IV SCH ×2 (06:58→19:01)
[2020-11-11] MEDS: POTASSIUM CHLORIDE 20MEQ/100ML 100 ML IV PRN ×2 (08:35→15:41)
[2020-11-11] MEDS: FLUOXETINE HCL 20 MG CAPSULE PO SCH (09:00)
[2020-11-11] MEDS: VANCOMYCIN 1G 1.25 GM in 0.9% NACL 250ML 250 ML IV SCH ×2 (09:00→20:46)
[2020-11-11] MEDS: FAMOTIDINE 20MG VIAL IV SCH ×2 (10:46→20:46)
[2020-11-11] MEDS: FLUCONAZOLE 400 MG/NS 200 ML 200 ML IV SCH (10:49)
[2020-11-11] MEDS: FAT EMULSIONS 20% 250ML 250 ML IV SCH (21:06)
[2020-11-12] MEDS: HYDROMORPHONE 0.5 MG SYG (0.5MG/0.5ML) IVP PRN ×6 (00:59→20:57)
[2020-11-12 03:53] VITALS: BP 138/82
[2020-11-12] MEDS: OCTREOTIDE ACETATE 100 MCG/ML AMP SQ SCH ×3 (04:22→20:57)
[2020-11-12] MEDS: METOCLOPRAMIDE 10 MG/2 ML VIAL IVP SCH ×3 (04:22→19:57)
[2020-11-12] MEDS: ZOSYN 3.375GM+NS 50ML 50 ML IV SCH ×3 (04:22→19:57)
[2020-11-12 08:05] VITALS: BP 125/78
[2020-11-12] MEDS: FLUOXETINE HCL 20 MG CAPSULE PO SCH (09:00)
[2020-11-12] MEDS: FLUCONAZOLE 400 MG/NS 200 ML 200 ML IV SCH (09:40)
[2020-11-12] MEDS: FAMOTIDINE 20MG VIAL IV SCH ×2 (09:40→19:57)
[2020-11-12] MEDS: PROCALAMINE IV SOLUTION 1,000 ML IV SCH ×2 (09:49→17:47)
[2020-11-12] MEDS: ONDANSETRON 4MG INJ IVP PRN (09:51)
[2020-11-12 11:00] VITALS: BP 129/90
[2020-11-12] MEDS: VANCOMYCIN 1G 1.25 GM in 0.9% NACL 250ML 250 ML IV SCH ×2 (13:21→21:09)
[2020-11-12 16:01] VITALS: BP 124/74
[2020-11-12] MEDS: FAT EMULSIONS 20% 250ML 250 ML IV SCH (19:57)
[2020-11-12 20:00] VITALS: BP 134/80
[2020-11-12 23:22] VITALS: BP 132/90
[2020-11-13] MEDS: HYDROMORPHONE 0.5 MG SYG (0.5MG/0.5ML) IVP PRN ×7 (00:56→23:59)
[2020-11-13] MEDS: ZOSYN 3.375GM+NS 50ML 50 ML IV SCH ×3 (03:18→20:01)
[2020-11-13] MEDS: METOCLOPRAMIDE 10 MG/2 ML VIAL IVP SCH ×3 (03:18→20:00)
[2020-11-13 03:38] VITALS: BP 141/93
[2020-11-13] MEDS: OCTREOTIDE ACETATE 100 MCG/ML AMP SQ SCH ×3 (04:59→21:25)
[2020-11-13] MEDS ORDERED: PHARMACY COMMUNICATION MISC SCH (07:00)
[2020-11-13 08:01] VITALS: BP 130/81
[2020-11-13] MEDS: FAMOTIDINE 20MG VIAL IV SCH ×2 (08:46→20:00)
[2020-11-13] MEDS: VANCOMYCIN 1G 1.25 GM in 0.9% NACL 250ML 250 ML IV SCH ×2 (08:47→20:00)
[2020-11-13] MEDS: PROCALAMINE IV SOLUTION 1,000 ML IV SCH (08:50)
[2020-11-13] MEDS: FLUCONAZOLE 400 MG/NS 200 ML 200 ML IV SCH (09:00)
[2020-11-13 11:43] VITALS: BP 134/93
[2020-11-13 16:08] VITALS: BP 136/87
[2020-11-13 19:59] VITALS: BP 136/82
[2020-11-13] MEDS ORDERED: M.V.I. IV [ADULT] 10 ML in CLINIMIX-E 5%AA /D15%W 2000ML 2,000 ML IV ONE (20:00)
[2020-11-13] MEDS: FAT EMULSIONS 20% 250ML 250 ML IV SCH (20:01)
[2020-11-13] MEDS: ONDANSETRON 4MG INJ IVP PRN (20:46)
[2020-11-13 23:38] VITALS: BP 134/80
[2020-11-14] MEDS: HYDROMORPHONE 0.5 MG SYG (0.5MG/0.5ML) IVP PRN ×6 (03:57→23:53)
[2020-11-14] MEDS: METOCLOPRAMIDE 10 MG/2 ML VIAL IVP SCH ×3 (03:57→20:08)
[2020-11-14] MEDS: ZOSYN 3.375GM+NS 50ML 50 ML IV SCH ×3 (03:57→20:09)
[2020-11-14 04:02] VITALS: BP 130/79
[2020-11-14] MEDS: OCTREOTIDE ACETATE 100 MCG/ML AMP SQ SCH ×3 (05:06→20:32)
[2020-11-14 05:09] LABS: BASOPHILS % (AUTO) 0.7 % (0.0-5.0); HEMATOCRIT 33.1 % (42-54); LYMPHOCYTES % (AUTO) 22.5 % (21.0-51.0); MEAN CORPUSCULAR HEMOGLOBIN 26.6 pg (27.0-33.0); MONOCYTES % (AUTO) 11.3 % (3.0-13.0); NEUTROPHILS % (AUTO) 63.5 % (40.0-77.0); PLATELET COUNT (AUTO) 67 K/uL (130-400); RED BLOOD CELL COUNT(AUTO) 3.99 MIL/uL (4.50-6.20); RED CELL DISTRIBUTION WIDTH 13.3 % (11.0-15.5); WHITE BLOOD COUNT (AUTO) 2.9 K/uL (4.8-10.8)
[2020-11-14 05:14] LABS: ALBUMIN 2.8 g/dL (3.5-5.0); BILIRUBIN,DIRECT 0.1 mg/dL (0.0-0.3); BILIRUBIN,TOTAL 0.4 mg/dL (0.2-1.0); POTASSIUM 3.8 mmol/L (3.5-5.1); TOTAL PROTEIN, SERUM 7.4 g/dL (6.0-8.3)
[2020-11-14 08:00] VITALS: BP 144/83
[2020-11-14] MEDS: FAMOTIDINE 20MG VIAL IV SCH ×2 (08:05→20:09)
[2020-11-14] MEDS: FLUCONAZOLE 400 MG/NS 200 ML 200 ML IV SCH (09:47)
[2020-11-14] MEDS: VANCOMYCIN 1G 1.25 GM in 0.9% NACL 250ML 250 ML IV SCH ×2 (11:48→20:31)
[2020-11-14 12:00] VITALS: BP 117/71
[2020-11-14] MEDS ORDERED: ALTEPLASE 2MG VIAL 2 MG/VIAL VIAL IVCATH SCH (12:15)
[2020-11-14] MEDS ORDERED: ALTEPLASE 2MG VIAL 2 MG/VIAL VIAL IVCATH ONE (15:30)
[2020-11-14 16:00] VITALS: BP 119/67
[2020-11-14] MEDS ORDERED: DEXTROSE 10%-WATER 1,000 ML IV SCH (16:30)
[2020-11-14 20:16] VITALS: BP 120/65
[2020-11-14] MEDS: FAT EMULSIONS 20% 250ML 250 ML IV SCH (20:31)
[2020-11-14] MEDS ORDERED: DEXTROSE 10%-WATER 1,000 ML IV PRN (23:30)
[2020-11-15 00:20] VITALS: BP 117/67
[2020-11-15] MEDS: METOCLOPRAMIDE 10 MG/2 ML VIAL IVP SCH ×3 (04:06→19:46)
[2020-11-15] MEDS: ZOSYN 3.375GM+NS 50ML 50 ML IV SCH ×3 (04:06→19:47)
[2020-11-15] MEDS: HYDROMORPHONE 0.5 MG SYG (0.5MG/0.5ML) IVP PRN ×6 (04:07→23:26)
[2020-11-15 04:24] VITALS: BP 125/70
[2020-11-15] MEDS: OCTREOTIDE ACETATE 100 MCG/ML AMP SQ SCH ×3 (06:23→19:46)
[2020-11-15 08:00] VITALS: BP 118/63
[2020-11-15] MEDS: VANCOMYCIN 1G 1.25 GM in 0.9% NACL 250ML 250 ML IV SCH ×2 (10:12→19:47)
[2020-11-15] MEDS: FLUCONAZOLE 400 MG/NS 200 ML 200 ML IV SCH (10:12)
[2020-11-15] MEDS: M.V.I. IV [ADULT] 10 ML in CLINIMIX-E 5%AA /D15%W 2000ML 2,000 ML IV NR ×2 (10:13→10:27)
[2020-11-15] MEDS: FAMOTIDINE 20MG VIAL IV SCH ×2 (10:13→19:47)
[2020-11-15 11:00] VITALS: BP 103/59
[2020-11-15 16:00] VITALS: BP 106/57
[2020-11-15] MEDS: FAT EMULSIONS 20% 250ML 250 ML IV SCH (19:47)
[2020-11-15 20:20] VITALS: BP 104/52
[2020-11-16 00:24] VITALS: BP 111/64
[2020-11-16] MEDS: ZOSYN 3.375GM+NS 50ML 50 ML IV SCH ×3 (03:21→21:32)
[2020-11-16] MEDS: METOCLOPRAMIDE 10 MG/2 ML VIAL IVP SCH ×3 (03:21→21:31)
[2020-11-16] MEDS: HYDROMORPHONE 0.5 MG SYG (0.5MG/0.5ML) IVP PRN ×6 (03:21→23:56)
[2020-11-16 04:24] VITALS: BP 118/60
[2020-11-16] MEDS: OCTREOTIDE ACETATE 100 MCG/ML AMP SQ SCH ×3 (05:29→21:32)
[2020-11-16 06:23] LABS: CREATININE 0.9 mg/dL (0.5-1.5); MAGNESIUM 1.7 mg/dL (1.80-2.40); POTASSIUM 3.5 mmol/L (3.5-5.1)
[2020-11-16] MEDS: POTASSIUM CHLORIDE 20MEQ/100ML 100 ML IV PRN (06:35)
[2020-11-16 08:00] VITALS: BP 106/56
[2020-11-16 08:38] LABS: HEMATOCRIT 24.4 % (42-54); MEAN CORPUSCULAR HEMOGLOBIN 27.1 pg (27.0-33.0); MEAN CORPUSCULAR HGB CONC 31.6 g/dL (32.0-36.0); MEAN CORPUSCULAR VOLUME 85.9 fL (79-99); RED BLOOD CELL COUNT(AUTO) 2.84 MIL/uL (4.50-6.20); RED CELL DISTRIBUTION WIDTH 13.8 % (11.0-15.5); WHITE BLOOD COUNT (AUTO) 5.2 K/uL (4.8-10.8)
[2020-11-16 08:44] LABS: CREATININE 1.1 mg/dL (0.5-1.5); MAGNESIUM 1.9 mg/dL (1.80-2.40); POTASSIUM 4.1 mmol/L (3.5-5.1)
[2020-11-16] MEDS: FLUCONAZOLE 400 MG/NS 200 ML 200 ML IV SCH (09:43)
[2020-11-16] MEDS: MAGNESIUM 2GM PREMIX 50ML 50 ML IV PRN (09:45)
[2020-11-16] MEDS: VANCOMYCIN 1G 1.25 GM in 0.9% NACL 250ML 250 ML IV SCH ×2 (09:46→21:36)
[2020-11-16] MEDS: FAMOTIDINE 20MG VIAL IV SCH ×2 (09:46→21:31)
[2020-11-16 11:00] VITALS: BP 113/60
[2020-11-16] MEDS: M.V.I. IV [ADULT] 10 ML in CLINIMIX-E 5%AA /D15%W 2000ML 2,000 ML IV NR (15:16)
[2020-11-16 16:00] VITALS: BP 102/53
[2020-11-16 20:12] VITALS: BP 107/52
[2020-11-17] VITALS (8 sets, daily range): BP systolic 108–126; BP diastolic 52–96
[2020-11-17] MEDS: ZOSYN 3.375GM+NS 50ML 50 ML IV SCH ×3 (04:14→20:25)
[2020-11-17] MEDS: OCTREOTIDE ACETATE 100 MCG/ML AMP SQ SCH ×3 (04:14→20:49)
[2020-11-17] MEDS: METOCLOPRAMIDE 10 MG/2 ML VIAL IVP SCH ×3 (04:14→20:25)
[2020-11-17] MEDS: HYDROMORPHONE 0.5 MG SYG (0.5MG/0.5ML) IVP PRN ×5 (04:15→20:26)
[2020-11-17 06:50] LABS: MAGNESIUM 1.9 mg/dL (1.80-2.40); POTASSIUM 4.1 mmol/L (3.5-5.1)
[2020-11-17 07:12] LABS: HEMATOCRIT 22.7 % (42-54); MEAN CORPUSCULAR HEMOGLOBIN 26.6 pg (27.0-33.0); MEAN CORPUSCULAR HGB CONC 30.4 g/dL (32.0-36.0); MEAN CORPUSCULAR VOLUME 87.6 fL (79-99); PLATELET COUNT (AUTO) 254 K/uL (130-400); RED BLOOD CELL COUNT(AUTO) 2.59 MIL/uL (4.50-6.20); RED CELL DISTRIBUTION WIDTH 14.1 % (11.0-15.5); WHITE BLOOD COUNT (AUTO) 5.9 K/uL (4.8-10.8)
[2020-11-17] MEDS: FLUCONAZOLE 400 MG/NS 200 ML 200 ML IV SCH (08:13)
[2020-11-17] MEDS: FAMOTIDINE 20MG VIAL IV SCH ×2 (08:13→20:25)
[2020-11-17] MEDS: VANCOMYCIN 1G 1.25 GM in 0.9% NACL 250ML 250 ML IV SCH ×2 (09:19→21:23)
[2020-11-17] MEDS: M.V.I. IV [ADULT] 10 ML in CLINIMIX-E 5%AA /D15%W 2000ML 2,000 ML IV NR (18:18)
[2020-11-17] MEDS: FAT EMULSIONS 20% 250ML 250 ML IV SCH (20:25)
[2020-11-18] MEDS: HYDROMORPHONE 0.5 MG SYG (0.5MG/0.5ML) IVP PRN ×4 (00:50→14:26)
[2020-11-18] MEDS: METOCLOPRAMIDE 10 MG/2 ML VIAL IVP SCH ×3 (03:58→19:59)
[2020-11-18] MEDS: ZOSYN 3.375GM+NS 50ML 50 ML IV SCH (03:58)
[2020-11-18 04:48] VITALS: BP 120/67
[2020-11-18] MEDS: OCTREOTIDE ACETATE 100 MCG/ML AMP SQ SCH ×3 (04:53→20:00)
[2020-11-18 05:18] LABS: BASOPHILS % (AUTO) 0.5 % (0.0-5.0); EOSINOPHILS % (AUTO) 2.7 % (0.0-8.0); HEMATOCRIT 24.2 % (42-54); LYMPHOCYTES % (AUTO) 20.5 % (21.0-51.0); MEAN CORPUSCULAR HEMOGLOBIN 27.9 pg (27.0-33.0); MEAN CORPUSCULAR HGB CONC 32.2 g/dL (32.0-36.0); MEAN CORPUSCULAR VOLUME 86.4 fL (79-99); MONOCYTES % (AUTO) 11.7 % (3.0-13.0); PLATELET COUNT (AUTO) 270 K/uL (130-400); RED CELL DISTRIBUTION WIDTH 13.9 % (11.0-15.5); WHITE BLOOD COUNT (AUTO) 6.6 K/uL (4.8-10.8)
[2020-11-18 05:40] LABS: ALBUMIN 2.5 g/dL (3.5-5.0); BILIRUBIN,TOTAL 0.5 mg/dL (0.2-1.0); POTASSIUM 4.3 mmol/L (3.5-5.1)
[2020-11-18 08:14] VITALS: BP 114/61
[2020-11-18] MEDS ORDERED: ALTEPLASE 2MG VIAL 2 MG/VIAL VIAL IVCATH SCH (08:15)
[2020-11-18] MEDS: FLUCONAZOLE 400 MG/NS 200 ML 200 ML IV SCH (09:04)
[2020-11-18] MEDS: FAMOTIDINE 20MG VIAL IV SCH ×2 (09:04→20:00)
[2020-11-18 11:24] VITALS: BP 126/68
[2020-11-18] MEDS ORDERED: MORPHINE 2 MG SYG ONE (12:08)
[2020-11-18] MEDS ORDERED: MORPHINE 2 MG SYG IVP SCH (12:15)
[2020-11-18] MEDS ORDERED: ALTEPLASE 2MG VIAL 2 MG/VIAL VIAL IVCATH ONE (15:00)
[2020-11-18] MEDS: ONDANSETRON 4MG INJ IVP PRN (15:59)
[2020-11-18] MEDS: CLINIMIX-E 5%AA /D15%W 2000ML 2,000 ML IV NR (16:13)
[2020-11-18 16:39] VITALS: BP 130/72
[2020-11-18 19:44] VITALS: BP 135/68
[2020-11-18 23:27] VITALS: BP 118/69
[2020-11-18] MEDS ORDERED: PHARMACY COMMUNICATION MISC SCH (23:45)
[2020-11-19] MEDS: HYDROMORPHONE 0.5 MG SYG (0.5MG/0.5ML) IVP PRN ×5 (00:30→17:26)
[2020-11-19 04:09] VITALS: BP 130/75
[2020-11-19] MEDS: HONEY 1 APPL/ML TUBE TP SCH (04:32)
[2020-11-19] MEDS: METOCLOPRAMIDE 10 MG/2 ML VIAL IVP SCH ×3 (04:32→22:19)
[2020-11-19] MEDS: OCTREOTIDE ACETATE 100 MCG/ML AMP SQ SCH ×3 (04:33→22:20)
[2020-11-19] MEDS: FAMOTIDINE 20MG VIAL IV SCH ×2 (08:31→22:19)
[2020-11-19 08:45] VITALS: BP 114/64
[2020-11-19 11:49] VITALS: BP 109/63
[2020-11-19] MEDS: VANCOMYCIN 1G 1.25 GM in 0.9% NACL 250ML 250 ML IV SCH ×2 (11:56→21:00)
[2020-11-19 16:18] VITALS: BP 103/55
[2020-11-19 19:33] VITALS: BP 103/57
[2020-11-19] MEDS ORDERED: HYDROMORPHONE 2 MG VIAL (2MG/ML) IVP PRN (21:00)
[2020-11-19] MEDS ORDERED: HYDROMORPHONE 0.5 MG SYG (0.5MG/0.5ML) ONE (22:14)
[2020-11-19] MEDS: FAT EMULSIONS 20% 250ML 250 ML IV SCH (22:19)
[2020-11-19] MEDS: KETOROLAC 30MG VIAL (30MG/ML) IV SCH (22:19)
[2020-11-19] MEDS: CLINIMIX-E 5%AA /D15%W 2000ML 2,000 ML IV NR (22:45)
[2020-11-20] VITALS (7 sets, daily range): BP systolic 97–117; BP diastolic 48–84
[2020-11-20] MEDS: METOCLOPRAMIDE 10 MG/2 ML VIAL IVP SCH ×3 (03:32→20:53)
[2020-11-20] MEDS: KETOROLAC 30MG VIAL (30MG/ML) IV SCH ×4 (03:33→20:53)
[2020-11-20] MEDS: OCTREOTIDE ACETATE 100 MCG/ML AMP SQ SCH ×3 (03:33→20:53)
[2020-11-20] MEDS: HONEY 1 APPL/ML TUBE TP SCH ×2 (03:34→20:54)
[2020-11-20] MEDS: HYDROMORPHONE 0.5 MG SYG (0.5MG/0.5ML) IVP PRN ×4 (07:52→20:52)
[2020-11-20] MEDS: VANCOMYCIN 1G 1.25 GM in 0.9% NACL 250ML 250 ML IV SCH (09:00)
[2020-11-20] MEDS: FAMOTIDINE 20MG VIAL IV SCH ×2 (12:01→20:54)
[2020-11-20] MEDS ORDERED: CLINIMIX-E 5%AA /D15%W 2000ML 2,000 ML IV NR (19:45)
[2020-11-20] MEDS: VANCOMYCIN 1G/250ML KIT 250 ML IV SCH (20:52)
[2020-11-21 04:00] VITALS: BP 106/62
[2020-11-21] MEDS: OCTREOTIDE ACETATE 100 MCG/ML AMP SQ SCH ×3 (05:05→22:00)
[2020-11-21] MEDS: KETOROLAC 30MG VIAL (30MG/ML) IV SCH ×4 (05:05→23:18)
[2020-11-21] MEDS: METOCLOPRAMIDE 10 MG/2 ML VIAL IVP SCH ×3 (05:05→20:28)
[2020-11-21] MEDS: HYDROMORPHONE 0.5 MG SYG (0.5MG/0.5ML) IVP PRN ×5 (05:38→21:46)
[2020-11-21 05:51] LABS: HEMATOCRIT 24.3 % (42-54); MEAN CORPUSCULAR HEMOGLOBIN 27.5 pg (27.0-33.0); MEAN CORPUSCULAR HGB CONC 31.3 g/dL (32.0-36.0); PLATELET COUNT (AUTO) 317 K/uL (130-400); RED BLOOD CELL COUNT(AUTO) 2.76 MIL/uL (4.50-6.20); RED CELL DISTRIBUTION WIDTH 14.3 % (11.0-15.5); WHITE BLOOD COUNT (AUTO) 7.5 K/uL (4.8-10.8)
[2020-11-21 06:00] LABS: CREATININE 1.1 mg/dL (0.5-1.5); POTASSIUM 4.8 mmol/L (3.5-5.1)
[2020-11-21 06:49] LABS: EOSINOPHILS % (MANUAL) 3 % (1-6); LYMPHOCYTES % (MANUAL) 22 % (22-44); MAN.DIFF COMMENT-IMPRESSION MANUAL DIFFERENTIAL; MONOCYTES % (MANUAL) 7 % (2-9); SEGMENTED NEUTROPHILS % 68 % (40-70)
[2020-11-21 06:50] LABS: PLATELET MORPHOLOGY COMMENT ADEQUATE
[2020-11-21 08:00] VITALS: BP 99/54
[2020-11-21] MEDS: FAMOTIDINE 20MG VIAL IV SCH (09:14)
[2020-11-21] MEDS: VANCOMYCIN 1G/250ML KIT 250 ML IV SCH ×2 (09:15→20:29)
[2020-11-21 11:51] VITALS: BP 99/53
[2020-11-21 16:51] VITALS: BP 108/62
[2020-11-21 19:41] VITALS: BP 96/54
[2020-11-21] MEDS: FAT EMULSIONS 20% 250ML 250 ML IV SCH (20:32)
[2020-11-21] MEDS ORDERED: PHARMACY COMMUNICATION MISC SCH (22:00)
[2020-11-21 23:41] VITALS: BP 106/58
[2020-11-22] MEDS: HYDROMORPHONE 0.5 MG SYG (0.5MG/0.5ML) IVP PRN ×6 (01:46→22:17)
[2020-11-22 04:00] VITALS: BP 97/53
[2020-11-22] MEDS: METOCLOPRAMIDE 10 MG/2 ML VIAL IVP SCH ×3 (04:50→21:03)
[2020-11-22] MEDS: KETOROLAC 30MG VIAL (30MG/ML) IV SCH ×4 (04:50→21:23)
[2020-11-22] MEDS: HONEY 1 APPL/ML TUBE TP SCH (04:51)
[2020-11-22] MEDS: OCTREOTIDE ACETATE 100 MCG/ML AMP SQ SCH ×3 (06:00→21:23)
[2020-11-22] MEDS ORDERED: PHARMACY COMMUNICATION MISC SCH (06:15)
[2020-11-22 06:26] LABS: HEMATOCRIT 24.2 % (42-54)
[2020-11-22 06:39] LABS: CREATININE 1.1 mg/dL (0.5-1.5); MAGNESIUM 2.2 mg/dL (1.80-2.40)
[2020-11-22 08:53] VITALS: BP 100/49
[2020-11-22] MEDS: VANCOMYCIN 1G/250ML KIT 250 ML IV SCH (09:00)
[2020-11-22 11:46] VITALS: BP 101/53
[2020-11-22 16:26] VITALS: BP 104/55
[2020-11-22 19:49] VITALS: BP 90/48
[2020-11-22 23:26] VITALS: BP 98/52
[2020-11-23] MEDS: HYDROMORPHONE 0.5 MG SYG (0.5MG/0.5ML) IVP PRN ×6 (02:21→22:18)
[2020-11-23 04:00] VITALS: BP 98/55
[2020-11-23] MEDS: METOCLOPRAMIDE 10 MG/2 ML VIAL IVP SCH ×3 (04:02→21:42)
[2020-11-23] MEDS: KETOROLAC 30MG VIAL (30MG/ML) IV SCH ×3 (04:03→13:16)
[2020-11-23 05:57] LABS: HEMATOCRIT 22.1 % (42-54); MEAN CORPUSCULAR HEMOGLOBIN 28.2 pg (27.0-33.0); MEAN CORPUSCULAR HGB CONC 32.6 g/dL (32.0-36.0); MEAN CORPUSCULAR VOLUME 86.7 fL (79-99); RED BLOOD CELL COUNT(AUTO) 2.55 MIL/uL (4.50-6.20); RED CELL DISTRIBUTION WIDTH 14.6 % (11.0-15.5); WHITE BLOOD COUNT (AUTO) 7.8 K/uL (4.8-10.8)
[2020-11-23 06:05] LABS: CREATININE 1.2 mg/dL (0.5-1.5); PHOSPHORUS 6.1 mg/dL (2.5-4.9)
[2020-11-23] MEDS: OCTREOTIDE ACETATE 100 MCG/ML AMP SQ SCH (06:05)
[2020-11-23 06:17] LABS: POTASSIUM 6.1 mmol/L (3.5-5.1)
[2020-11-23] MEDS ORDERED: INSULIN HUMULIN R 100 UNIT/ML 3ML IV SCH (06:45)
[2020-11-23] MEDS ORDERED: FUROSEMIDE 40MG VIAL IV SCH (06:45)
[2020-11-23] MEDS ORDERED: CALCIUM GLUC 1GM 1 GM in 0.9%NACL 100ML 100 ML IV SCH (06:45)
[2020-11-23] MEDS ORDERED: CALCIUM GLUC 1GM/10ML VIAL IV SCH (06:45)
[2020-11-23] MEDS ORDERED: KAYEXALATE 15GM/60ML PO SCH (06:45)
[2020-11-23] MEDS ORDERED: SODIUM BICARB 50MEQ 50ML VIAL IV SCH (06:45)
[2020-11-23] MEDS ORDERED: DEXTROSE 50%-WATER 50 ML DISP.SYRIN IV SCH (06:45)
[2020-11-23 07:49] VITALS: BP 104/57
[2020-11-23] MEDS: HONEY 1 APPL/ML TUBE TP SCH (10:11)
[2020-11-23 12:07] VITALS: BP 119/64
[2020-11-23] MEDS: 0.9%NACL 1000ML 1,000 ML IV SCH ×2 (16:02→21:44)
[2020-11-23 16:43] VITALS: BP 107/51
[2020-11-23 20:05] VITALS: BP 105/60
[2020-11-23 23:15] VITALS: BP 113/59
[2020-11-24] MEDS: HYDROMORPHONE 0.5 MG SYG (0.5MG/0.5ML) IVP PRN ×6 (02:23→22:43)
[2020-11-24 03:59] VITALS: BP 119/63
[2020-11-24 04:21] LABS: CREATININE 1.4 mg/dL (0.5-1.5); POTASSIUM 5.3 mmol/L (3.5-5.1)
[2020-11-24] MEDS: METOCLOPRAMIDE 10 MG/2 ML VIAL IVP SCH ×3 (04:36→21:36)
[2020-11-24 04:39] LABS: HEMATOCRIT 21.2 % (42-54); MEAN CORPUSCULAR HEMOGLOBIN 28.3 pg (27.0-33.0); MEAN CORPUSCULAR HGB CONC 32.1 g/dL (32.0-36.0); MEAN CORPUSCULAR VOLUME 88.3 fL (79-99); RED BLOOD CELL COUNT(AUTO) 2.4 MIL/uL (4.50-6.20); RED CELL DISTRIBUTION WIDTH 14.5 % (11.0-15.5); WHITE BLOOD COUNT (AUTO) 10.2 K/uL (4.8-10.8)
[2020-11-24] MEDS ORDERED: KAYEXALATE 15GM/60ML PO SCH (07:30)
[2020-11-24 08:00] VITALS: BP 118/68
[2020-11-24] MEDS: HONEY 1 APPL/ML TUBE TP SCH (09:00)
[2020-11-24 12:00] VITALS: BP 113/48
[2020-11-24] MEDS: 0.9%NACL 1000ML 1,000 ML IV SCH (15:39)
[2020-11-24 15:52] VITALS: BP 118/67
[2020-11-24] MEDS ORDERED: 0.9% NACL 250ML 250 ML IV ONE (17:46)
[2020-11-24 20:00] VITALS: BP 115/62
[2020-11-25] VITALS: BP 103/59
[2020-11-25 01:12] LABS: HEMATOCRIT 23.4 % (42-54)
[2020-11-25] MEDS: 0.9%NACL 1000ML 1,000 ML IV SCH ×2 (02:29→11:39)
[2020-11-25] MEDS: HYDROMORPHONE 0.5 MG SYG (0.5MG/0.5ML) IVP PRN ×3 (02:33→10:35)
[2020-11-25 04:00] VITALS: BP 103/58
[2020-11-25] MEDS: METOCLOPRAMIDE 10 MG/2 ML VIAL IVP SCH ×2 (05:45→13:12)
[2020-11-25 06:50] LABS: HEMATOCRIT 23.7 % (42-54); MEAN CORPUSCULAR HGB CONC 32.5 g/dL (32.0-36.0); MEAN CORPUSCULAR VOLUME 86.2 fL (79-99); RED BLOOD CELL COUNT(AUTO) 2.75 MIL/uL (4.50-6.20); WHITE BLOOD COUNT (AUTO) 6.7 K/uL (4.8-10.8)
[2020-11-25 07:04] LABS: ALBUMIN 2.4 g/dL (3.5-5.0); BILIRUBIN,TOTAL 0.5 mg/dL (0.2-1.0); CREATININE 0.9 mg/dL (0.5-1.5); MAGNESIUM 2.1 mg/dL (1.80-2.40); POTASSIUM 4.3 mmol/L (3.5-5.1); TOTAL PROTEIN, SERUM 6.9 g/dL (6.0-8.3)
[2020-11-25 08:00] VITALS: BP 107/61
[2020-11-25] MEDS: HONEY 1 APPL/ML TUBE TP SCH (09:00)
[2020-11-25 11:19] VITALS: BP 121/69
[2020-11-25] MEDS ORDERED: METHYLNALTREXONE BROMIDE 12 MG/0.6 ML VIAL SQ SCH (13:15)
[2020-11-25] MEDS: HYDROMORPHONE HCL 2 MG TAB PO PRN ×2 (14:49→22:33)
[2020-11-25 15:59] VITALS: BP 115/62
[2020-11-25] MEDS: METOCLOPRAMIDE 10 MG TABLET PO SCH ×2 (17:22→22:33)
[2020-11-25 18:47] LABS: % IRON SATURATION 18.7 % (30-44)
[2020-11-25 20:00] VITALS: BP 114/60
[2020-11-26] VITALS: BP 106/61
[2020-11-26] MEDS: 0.9%NACL 1000ML 1,000 ML IV SCH ×3 (03:06→17:39)
[2020-11-26 04:00] VITALS: BP 120/70
[2020-11-26] MEDS: METOCLOPRAMIDE 10 MG TABLET PO SCH ×4 (06:49→21:13)
[2020-11-26] MEDS: HYDROMORPHONE HCL 2 MG TAB PO PRN ×3 (06:50→22:53)
[2020-11-26 07:49] VITALS: BP 115/71
[2020-11-26] MEDS: HONEY 1 APPL/ML TUBE TP SCH (09:00)
[2020-11-26 10:54] VITALS: BP 112/63
[2020-11-26 16:28] VITALS: BP 111/65
[2020-11-26 20:00] VITALS: BP 108/56
[2020-11-27] VITALS (7 sets, daily range): BP systolic 110–132; BP diastolic 61–87
[2020-11-27] MEDS: 0.9%NACL 1000ML 1,000 ML IV SCH ×3 (03:42→23:14)
[2020-11-27] MEDS: METOCLOPRAMIDE 10 MG TABLET PO SCH ×4 (06:54→23:15)
[2020-11-27] MEDS: HYDROMORPHONE HCL 2 MG TAB PO PRN ×3 (06:54→23:15)
[2020-11-27] MEDS: HONEY 1 APPL/ML TUBE TP SCH (08:56)
[2020-11-28] VITALS (24 sets, daily range): BP systolic 104–146; BP diastolic 55–82
[2020-11-28 05:42] LABS: BASOPHILS % (AUTO) 0.3 % (0.0-5.0); EOSINOPHILS % (AUTO) 1.4 % (0.0-8.0); HEMATOCRIT 23.6 % (42-54); LYMPHOCYTES % (AUTO) 26.9 % (21.0-51.0); MEAN CORPUSCULAR HGB CONC 32.2 g/dL (32.0-36.0); MEAN CORPUSCULAR VOLUME 87.1 fL (79-99); MONOCYTES % (AUTO) 8.2 % (3.0-13.0); NEUTROPHILS % (AUTO) 62.5 % (40.0-77.0); PLATELET COUNT (AUTO) 454 K/uL (130-400); RED BLOOD CELL COUNT(AUTO) 2.71 MIL/uL (4.50-6.20); RED CELL DISTRIBUTION WIDTH 13.8 % (11.0-15.5)
[2020-11-28 06:11] LABS: CREATININE 0.8 mg/dL (0.5-1.5); POTASSIUM 3.6 mmol/L (3.5-5.1)
[2020-11-28 06:14] LABS: INR 1.11 (0.85-1.15)
[2020-11-28 06:16] LABS: PARTIAL THROMBOPLASTIN TIME 25.4 SEC (26.3-35.5)
[2020-11-28] MEDS ORDERED: PROPOFOL 10 MG/ML 20ML VIAL IV ONE ×2 (07:38→07:53)
[2020-11-28] MEDS: HYDROMORPHONE HCL 2 MG TAB PO PRN ×2 (09:35→17:20)
[2020-11-28] MEDS: METOCLOPRAMIDE 10 MG TABLET PO SCH ×3 (13:07→20:51)
[2020-11-28] MEDS ORDERED: DIATR MEGLU/DIATRIZOATE SODIUM 30 ML BOTTLE ONE (14:37)
[2020-11-28] MEDS: HONEY 1 APPL/ML TUBE TP SCH (17:21)
[2020-11-28] MEDS: 0.9%NACL 1000ML 1,000 ML IV SCH (20:18)
[2020-11-29 00:24] VITALS: BP 106/63
[2020-11-29] MEDS: HYDROMORPHONE HCL 2 MG TAB PO PRN ×3 (01:45→22:19)
[2020-11-29 04:24] VITALS: BP 107/65
[2020-11-29] MEDS: 0.9%NACL 1000ML 1,000 ML IV SCH ×2 (05:38→22:11)
[2020-11-29] MEDS: METOCLOPRAMIDE 10 MG TABLET PO SCH ×4 (05:52→22:11)
[2020-11-29 08:10] VITALS: BP_SYST 137; BP_SYST 98; BP_DIAS 56; BP_DIAS 59
[2020-11-29] MEDS: AMITRIPTYLINE 25 MG TABLET PO SCH (09:08)
[2020-11-29 12:19] VITALS: BP 113/73
[2020-11-29 17:21] VITALS: BP 110/66
[2020-11-29] MEDS: HONEY 1 APPL/ML TUBE TP SCH (17:25)
[2020-11-29 20:16] VITALS: BP 108/62
[2020-11-30 00:16] VITALS: BP 114/68
[2020-11-30 04:16] VITALS: BP 117/69
[2020-11-30] MEDS: HYDROMORPHONE HCL 2 MG TAB PO PRN ×3 (07:41→23:42)
[2020-11-30] MEDS: 0.9%NACL 1000ML 1,000 ML IV SCH ×3 (07:41→23:33)
[2020-11-30] MEDS: METOCLOPRAMIDE 10MG/10ML UDCUP GT SCH ×4 (07:41→23:33)
[2020-11-30] MEDS: HONEY 1 APPL/ML TUBE TP SCH (09:00)
[2020-11-30 09:30] VITALS: BP 118/62
[2020-11-30] MEDS: AMITRIPTYLINE 25 MG TABLET PO SCH (09:54)
[2020-11-30 13:04] VITALS: BP 120/60
[2020-11-30 16:42] VITALS: BP 134/76
[2020-11-30] MEDS ORDERED: HYDROMORPHONE HCL 2 MG TAB PO PRN (19:30)
[2020-11-30 20:16] VITALS: BP 114/68
[2020-11-30] MEDS ORDERED: METHYLNALTREXONE BROMIDE 12 MG/0.6 ML VIAL SQ PRN (20:45)
[2020-11-30] MEDS ORDERED: HYDROMORPHONE HCL 2 MG TAB ONE (23:26)
[2020-11-30] MEDS: FLUOXETINE HCL 10 MG CAPSULE PO SCH (23:32)
[2020-12-01] VITALS (7 sets, daily range): BP systolic 109–127; BP diastolic 65–73
[2020-12-01] MEDS ORDERED: HYDROMORPHONE HCL 2 MG TAB ONE (05:28)
[2020-12-01] MEDS: METOCLOPRAMIDE 10MG/10ML UDCUP GT SCH ×4 (06:14→21:52)
[2020-12-01] MEDS: HYDROMORPHONE HCL 2 MG TAB PO PRN ×3 (06:30→18:24)
[2020-12-01 06:37] LABS: HEMATOCRIT 25.4 % (42-54); MEAN CORPUSCULAR HEMOGLOBIN 27.9 pg (27.0-33.0); MEAN CORPUSCULAR HGB CONC 31.5 g/dL (32.0-36.0); MEAN CORPUSCULAR VOLUME 88.5 fL (79-99); RED BLOOD CELL COUNT(AUTO) 2.87 MIL/uL (4.50-6.20); RED CELL DISTRIBUTION WIDTH 14.4 % (11.0-15.5); WHITE BLOOD COUNT (AUTO) 7.5 K/uL (4.8-10.8)
[2020-12-01 06:58] LABS: ALBUMIN 2.6 g/dL (3.5-5.0); BILIRUBIN,TOTAL 0.4 mg/dL (0.2-1.0); CREATININE 0.9 mg/dL (0.5-1.5); POTASSIUM 3.5 mmol/L (3.5-5.1); TOTAL PROTEIN, SERUM 6.8 g/dL (6.0-8.3)
[2020-12-01] MEDS: 0.9%NACL 1000ML 1,000 ML IV SCH ×2 (09:30→18:25)
[2020-12-01] MEDS: AMITRIPTYLINE 25 MG TABLET PO SCH (09:30)
[2020-12-01] MEDS: HONEY 1 APPL/ML TUBE TP SCH (12:11)
[2020-12-01] MEDS: FLUOXETINE HCL 10 MG CAPSULE PO SCH (21:52)
[2020-12-02] MEDS: HYDROMORPHONE HCL 2 MG TAB PO PRN ×4 (02:09→22:37)
[2020-12-02] MEDS: 0.9%NACL 1000ML 1,000 ML IV SCH ×2 (02:09→15:00)
[2020-12-02 04:19] VITALS: BP 111/69
[2020-12-02] MEDS: METOCLOPRAMIDE 10MG/10ML UDCUP GT SCH ×4 (06:17→21:15)
[2020-12-02 08:07] VITALS: BP 119/70
[2020-12-02] MEDS: AMITRIPTYLINE 25 MG TABLET PO SCH (08:55)
[2020-12-02] MEDS: HONEY 1 APPL/ML TUBE TP SCH (09:06)
[2020-12-02 11:51] VITALS: BP 124/70
[2020-12-02 16:29] VITALS: BP 116/70
[2020-12-02 20:13] VITALS: BP 119/70
[2020-12-02] MEDS: MAGNESIUM OXIDE 400 MG TABLET PO SCH (21:15)
[2020-12-02] MEDS: FLUOXETINE HCL 10 MG CAPSULE PO SCH (21:15)
[2020-12-02 23:34] VITALS: BP 120/70
[2020-12-03 04:08] VITALS: BP 121/76
[2020-12-03 06:55] LABS: HEMATOCRIT 24.8 % (42-54); MEAN CORPUSCULAR HEMOGLOBIN 28.6 pg (27.0-33.0); MEAN CORPUSCULAR HGB CONC 32.7 g/dL (32.0-36.0); MEAN CORPUSCULAR VOLUME 87.6 fL (79-99); RED BLOOD CELL COUNT(AUTO) 2.83 MIL/uL (4.50-6.20); RED CELL DISTRIBUTION WIDTH 14.5 % (11.0-15.5); WHITE BLOOD COUNT (AUTO) 8.2 K/uL (4.8-10.8)
[2020-12-03 07:12] LABS: ALBUMIN 2.6 g/dL (3.5-5.0); BILIRUBIN,TOTAL 0.4 mg/dL (0.2-1.0); CREATININE 0.8 mg/dL (0.5-1.5); MAGNESIUM 1.7 mg/dL (1.80-2.40); POTASSIUM 3.6 mmol/L (3.5-5.1); TOTAL PROTEIN, SERUM 6.8 g/dL (6.0-8.3)
[2020-12-03] MEDS: METOCLOPRAMIDE 10MG/10ML UDCUP GT SCH ×4 (07:30→20:03)
[2020-12-03 08:00] VITALS: BP 122/66
[2020-12-03] MEDS: AMITRIPTYLINE 25 MG TABLET PO SCH (09:13)
[2020-12-03] MEDS: MAGNESIUM OXIDE 400 MG TABLET PO SCH ×2 (09:13→20:03)
[2020-12-03] MEDS: HYDROMORPHONE HCL 2 MG TAB PO PRN ×2 (09:14→16:24)
[2020-12-03 11:18] VITALS: BP 123/71
[2020-12-03] MEDS: 0.9%NACL 1000ML 1,000 ML IV SCH ×2 (11:48→20:03)
[2020-12-03] MEDS: HONEY 1 APPL/ML TUBE TP SCH (11:49)
[2020-12-03 16:29] VITALS: BP 119/77
[2020-12-03] MEDS: FLUOXETINE HCL 10 MG CAPSULE PO SCH (20:03)
[2020-12-03] MEDS: MAGNESIUM 2GM PREMIX 50ML 50 ML IV PRN (20:04)
[2020-12-03 20:12] VITALS: BP 114/66
[2020-12-04 00:16] VITALS: BP 113/70
[2020-12-04] MEDS: 0.9%NACL 1000ML 1,000 ML IV SCH (04:12)
[2020-12-04 04:24] VITALS: BP 118/76
[2020-12-04 05:57] LABS: HEMATOCRIT 25.4 % (42-54); MEAN CORPUSCULAR HGB CONC 31.9 g/dL (32.0-36.0); MEAN CORPUSCULAR VOLUME 87.9 fL (79-99); RED BLOOD CELL COUNT(AUTO) 2.89 MIL/uL (4.50-6.20); RED CELL DISTRIBUTION WIDTH 14.6 % (11.0-15.5); WHITE BLOOD COUNT (AUTO) 7.4 K/uL (4.8-10.8)
[2020-12-04 06:11] LABS: CREATININE 0.9 mg/dL (0.5-1.5); MAGNESIUM 2.1 mg/dL (1.80-2.40); POTASSIUM 3.9 mmol/L (3.5-5.1)
[2020-12-04] MEDS: METOCLOPRAMIDE 10MG/10ML UDCUP GT SCH ×2 (06:13→11:57)
[2020-12-04 08:35] VITALS: BP 123/66
[2020-12-04] MEDS ORDERED: MAGN400T53 PO (08:38)
[2020-12-04] MEDS ORDERED: AMIT25TA9 PO (08:38)
[2020-12-04] MEDS ORDERED: METO10TA41 PO (08:38)
[2020-12-04] MEDS ORDERED: FLUO10CA21 PO (08:38)
[2020-12-04] MEDS ORDERED: HONE44PA TP (08:38)
[2020-12-04] MEDS: HYDROMORPHONE HCL 2 MG TAB PO PRN ×2 (08:54→15:39)
[2020-12-04] MEDS: MAGNESIUM OXIDE 400 MG TABLET PO SCH (08:54)
[2020-12-04] MEDS: AMITRIPTYLINE 25 MG TABLET PO SCH (08:54)
[2020-12-04 11:19] VITALS: BP 119/63
[2021-03-13] MEDS ORDERED: FAMO-136 PO (14:32)
[2021-08-10] MEDS ORDERED: OMEP40CA21 PO (12:24)
== END 2020-12-04 17:55 | disposition home or self-care (01) | DRG 853 ==
LOC: EDH 05:21 → EDHIP 05:22 → 3BH 10:48 → 2DH 08-21 07:34 → 4DH 08-31 12:35 → 3BH 09-06 15:21 → 2CH 09-06 17:37 → 2DH 09-12 18:34 → 2CH 09-13 07:46 → 4CH 09-21 18:40 → 3AH 10-24 21:59
PROVIDERS: ADMIT Internal Medicine Critical Care Medicine; ATTEND Internal Medicine Critical Care Medicine
PROC: 0DTJ4ZZ Resection of Appendix, Percutaneous Endoscopic Approach (ICD-10-PCS; principal; 2020-08-15 09:18)
PROC: 0WJG0ZZ Inspection of Peritoneal Cavity, Open Approach (ICD-10-PCS; 2020-08-21)
PROC: 05H533Z Insertion of Infusion Device into Right Subclavian Vein, Percutaneous Approach (ICD-10-PCS; 2020-08-21)
PROC: 5A1955Z Respiratory Ventilation, Greater than 96 Consecutive Hours (ICD-10-PCS; 2020-08-21)
PROC: 0BH17EZ Insertion of Endotracheal Airway into Trachea, Via Natural or Artificial Opening (ICD-10-PCS; 2020-08-21)
PROC: 30233N1 Transfusion of Nonautologous Red Blood Cells into Peripheral Vein, Percutaneous Approach (ICD-10-PCS; 2020-08-21)
PROC: 0DJ08ZZ Inspection of Upper Intestinal Tract, Via Natural or Artificial Opening Endoscopic (ICD-10-PCS; 2020-08-22)
PROC: 0W9G30Z Drainage of Peritoneal Cavity with Drainage Device, Percutaneous Approach (ICD-10-PCS; 2020-09-04)
PROC: 0DH60UZ Insertion of Feeding Device into Stomach, Open Approach (ICD-10-PCS; 2020-09-05)
PROC: 3E0G76Z Introduction of Nutritional Substance into Upper GI, Via Natural or Artificial Opening (ICD-10-PCS; 2020-09-05)
PROC: 5A12012 Performance of Cardiac Output, Single, Manual (ICD-10-PCS; 2020-09-05)
PROC: 0DJ08ZZ Inspection of Upper Intestinal Tract, Via Natural or Artificial Opening Endoscopic (ICD-10-PCS; 2020-09-07)
PROC: 0DJ08ZZ Inspection of Upper Intestinal Tract, Via Natural or Artificial Opening Endoscopic (ICD-10-PCS; 2020-09-13)
PROC: 0DJ08ZZ Inspection of Upper Intestinal Tract, Via Natural or Artificial Opening Endoscopic (ICD-10-PCS; 2020-09-15)
PROC: 0DJ08ZZ Inspection of Upper Intestinal Tract, Via Natural or Artificial Opening Endoscopic (ICD-10-PCS; 2020-11-28)
DX: A41.9 Sepsis, unspecified organism (principal); R65.21 Severe sepsis with septic shock; J96.01 Acute respiratory failure with hypoxia; K72.00 Acute and subacute hepatic failure without coma; K26.4 Chronic or unspecified duodenal ulcer with hemorrhage; G93.41 Metabolic encephalopathy; J69.0 Pneumonitis due to inhalation of food and vomit; K35.21 Acute appendicitis with generalized peritonitis, with abscess; D62 Acute posthemorrhagic anemia; N17.9 Acute kidney failure, unspecified; E87.2 Acidosis; M62.82 Rhabdomyolysis; L97.419 Non-pressure chronic ulcer of right heel and midfoot with unspecified severity; G93.40 Encephalopathy, unspecified; T81.31XA Disruption of external operation (surgical) wound, not elsewhere classified, initial encounter; K63.2 Fistula of intestine; E46 Unspecified protein-calorie malnutrition; E87.0 Hyperosmolality and hypernatremia; E66.01 Morbid (severe) obesity due to excess calories; E78.5 Hyperlipidemia, unspecified; E86.0 Dehydration; E87.5 Hyperkalemia; F17.200 Nicotine dependence, unspecified, uncomplicated; F32.9 Major depressive disorder, single episode, unspecified; G89.4 Chronic pain syndrome; I12.9 Hypertensive chronic kidney disease with stage 1 through stage 4 chronic kidney disease, or unspecified chronic kidney disease; K72.10 Chronic hepatic failure without coma; L89.312 Pressure ulcer of right buttock, stage 2; N18.9 Chronic kidney disease, unspecified; R13.11 Dysphagia, oral phase; Z51.5 Encounter for palliative care; Z74.01 Bed confinement status; Z79.01 Long term (current) use of anticoagulants; F19.10 Other psychoactive substance abuse, uncomplicated; Z79.4 Long term (current) use of insulin; Z87.19 Personal history of other diseases of the digestive system; Z93.3 Colostomy status; K21.9 Gastro-esophageal reflux disease without esophagitis; Z68.26 Body mass index [BMI] 26.0-26.9, adult; G40.909 Epilepsy, unspecified, not intractable, without status epilepticus; K20.90 Esophagitis, unspecified without bleeding; E11.22 Type 2 diabetes mellitus with diabetic chronic kidney disease; Z20.822 Contact with and (suspected) exposure to COVID-19
CPT/HCPCS: 10030; 31500; 36415; 36430; 36600; 43235; 43249; 43255; 70450; 70490; 71045; 71250; 71275; 74018; 74176; 74177; 74178; 74230; 74240; 76080; 76942; 78278; 80048; 80053; 80061; 80076; 80185; 80202; 80305; 81001; 81003; 82140; 82150; 82248; 82270; 82330; 82435; 82550; 82607; 82728; 82746; 82803; 82947; 82948; 83540; 83550; 83605; 83690; 83735; 83874; 83880; 83935; 84100; 84132; 84134; 84145; 84295; 84300; 84484; 85014; 85018; 85025; 85027; 85378; 85610; 85730; 86156; 86850; 86870; 86900; 86901; 86922; 86923; 87040; 87070; 87071; 87076; 87077; 87088; 87186; 87205; 87426; 87449; 87804; 88304; 92526; 92610; 92611; 92950; 93005; 93970; 94002; 94003; 94640; 94664; 94667; 94668; 97039; 99152; 99153; A4344; A4606; A6250; A9512; C1725; C1751; C1894; C9113; G0378; J0171; J0330; J0610; J0690; J0694; J1170; J1450; J1815; J1885; J1940; J1953; J2001; J2020; J2060; J2175; J2185; J2212; J2248; J2250; J2270; J2354; J2405; J2543; J2704; J2710; J2765; J2997; J3010; J3370; J3411; J3475; J3480; J3490; J7030; J7040; J7050; J7060; J7070; J7120; J7608; P9016; Q2009; Q9963; Q9967; U0003

== ENCOUNTER 2021-04-07 08:48 | Day surgery (SDC) | payer OTHER, SELFPAY ==
[~2021-04-07] VITALS: Ht 180.3 cm; Wt 73.9 kg
[2021-04-07] VITALS (8 sets, daily range): BP systolic 82–114; BP diastolic 50–65
[~2021-04-07 08:48] MED LIST: FAMO-136 PO; NACL 0.9% 1000ML 1,000 ML IV ONE
[2021-04-07] MEDS ORDERED: PROPOFOL 10 MG/ML 20ML VIAL IV ONE (10:47)
== END 2021-04-07 11:55 | disposition home or self-care (01) ==
LOC: ENDO 08:48 → DAH 08:48 → ENDO 11:55
PROVIDERS: ATTEND Internal Medicine Gastroenterology
DX: K22.2 Esophageal obstruction (principal); Z20.822 Contact with and (suspected) exposure to COVID-19; Z98.890 Other specified postprocedural states; Z90.49 Acquired absence of other specified parts of digestive tract; Z87.891 Personal history of nicotine dependence; Z72.89 Other problems related to lifestyle; Z93.1 Gastrostomy status
CPT/HCPCS: 43249; 87635; A4215 ×2; A4221; A4222; A4223; A4606; A4620; A4657; A4663; C1725; C9803 ×2; J2704; J7030; U0003

== ENCOUNTER 2021-08-11 06:04 | Day surgery (SDC) | payer OTHER ==
[~2021-08-11] VITALS: Ht 180.3 cm; Wt 94.3 kg
[~2021-08-11 06:04] MED LIST changes: -NACL 0.9% 1000ML 1,000 ML IV ONE; +OMEP40CA21 PO
[2021-08-11] MEDS ORDERED: 0.9%NACL 1000ML 1,000 ML IV ONE (06:24)
[2021-08-11 06:32] VITALS: BP 119/62
[2021-08-11] MEDS ORDERED: MIDAZOLAM HCL 1 MG/ML 2ML VIAL ONE ×2 (07:13→07:22)
[2021-08-11] MEDS ORDERED: PROPOFOL 10 MG/ML 20ML VIAL IV ONE (07:13)
[2021-08-11] MEDS ORDERED: EPINEPHRINE PF 1MG AMP ONE (07:14)
[2021-08-11 07:35] VITALS: BP 135/45
[2021-08-11 07:40] VITALS: BP 123/51
[2021-08-11 07:45] VITALS: BP 116/56
[2021-08-11 07:50] VITALS: BP 114/61
== END 2021-08-11 08:05 | disposition home or self-care (01) ==
LOC: DAH 06:04
PROVIDERS: ATTEND Internal Medicine Gastroenterology
DX: K22.2 Esophageal obstruction (principal); K21.9 Gastro-esophageal reflux disease without esophagitis; Z43.1 Encounter for attention to gastrostomy; F17.200 Nicotine dependence, unspecified, uncomplicated; K26.4 Chronic or unspecified duodenal ulcer with hemorrhage; Z79.899 Other long term (current) drug therapy; Z20.822 Contact with and (suspected) exposure to COVID-19
CPT/HCPCS: 43247; 43249; 87635; A4215 ×2; A4221; A4222; A4223; A4606; A4620; A4657; A4663; C1725; C9803; J0171; J2250 ×2; J2704; J7030